=== PATIENT | female | born 1990 | race Caucasian/White ===

== ENCOUNTER 2019-10-29 02:54 | Emergency (ER) | payer MEDICARE, OTHER ==
[2019-10-29 03:04] VITALS: RESP 18
[2019-10-29] MEDS ORDERED: KETOROLAC 60 MG/2 ML VIAL IM STA (03:32)
[2019-10-29] MEDS ORDERED: MORPHINE SULFATE 4 MG/ML SYRINGE IM STA (03:32)
[2019-10-29 04:26] VITALS: BP 135/93; PULSE 72; TEMP 99.2
--- NOTE | 2019-10-29 04:48 | CT ---
CT scan of the mandible. History pain. Left side pain. Comparison none. FINDINGS: Multiple axial sections were obtained from the temporomandibular joints to the bottom of the mandible with no contrast. FINDINGS: Temporomandibular joints appear normal. Mandibular ring is intact. There are multiple bilateral hill ng teeth in the mandible. I see no focal bone destruction. There is no evidence of a soft tissue mass . The maxilla appears intact. The temporal bones are intact. There is fairly normal aeration of the m astoid sinuses. There is normal aeration of the epitympanic recess bilaterally. There are a few enlarged submandibular lymph nodes up to 13 mm on left side more than the right. There is mucosal thickening in the right side sphenoid sinus. IMPRESSION: No evidence of osteomyelitis. No evidence of an abscess. Sphenoid sinusitis. Mild bilateral submandibular lymphadenopathy with lymph nodes that measure up to 13 mm.
--- NOTE | 2019-10-29 05:15 | ED ---
ENT HPI - General Chief complaint: Dental/Oral Stated complaint: Mouth Pain Time Seen by Provider: 10/29/19 03:16 Source: patient Mode of arrival: ambulatory Limitations: no limitations - History of Present Illness Initial comments: This patient is 29-year-old woman who presents with complaint that she is not able to open her mandible well. She states that this is been developing over the course of tonight. She did recently have 2 teeth extracted from the left mandible area she states she was doing fairly well until today when she tried to open her mouth and felt there might have been a popping sensation and then she was not able to open her mouth very well. She called the on-call number and was directed to be seen in the emergency department. Patient denies fever or chills. There is no dyspnea. No difficulty with speech or swallowing. MD complaint: other -: hour(s) Location: other (Left mandible) Severity: severe Quality: aching, constant Consistency: constant Improves with: none Worsens with: eating Context-Epistaxis: recent surgery/procedure Context- Dental: history of dental caries - Related Data Home Medications Medication Instructions Recorded Confirmed carBAMazepine [TEGretol] 200 mg PO BID 04/02/14 04/02/14 Previous Rx's Medication Instructions Recorded Diazepam [Valium] 5 mg PO Q8HR PRN 3 Days #9 tab 10/29/19 Naproxen 500 mg PO Q12H #14 tablet 10/29/19 Allergies Allergy/AdvReac Type Severity Reaction Status Date / Time divalproex sodium Allergy Unknown Verified 10/29/19 03:05 [From Depakote] gabapentin Allergy Unknown Verified 10/29/19 03:05 lamotrigine [From Lamictal] Allergy Unknown Verified 10/29/19 03:05 latex Allergy Unknown Verified 10/29/19 03:05 lithium [[place]] Allergy Unknown Verified 10/29/19 03:05 clindamycin AdvReac Unknown Verified 10/29/19 03:05 Review of Systems ROS Statement: Those systems with pertinent positive or pertinent negative responses have been documented in the HPI. ROS Other: All systems not noted in ROS Statement are negative. Constitutional: Denies: fever, chills Eyes: Denies: eye pain, eye discharge, vision change ENT: Reports: as per HPI Respiratory: Denies: cough, dyspnea Cardiovascular: Denies: chest pain, palpitations Skin: Denies: rash Neurological: Denies: headache Past Medical History Past Medical History: Seizure Disorder Additional Past Medical History / Comment(s): sleep apnea, headaches History of Any Multi-Drug Resistant Organisms: None Reported Past Surgical History: Orthopedic Surgery Past Psychological History: Bipolar, Schizophrenia Smoking Status: Former smoker Past Alcohol Use History: None Reported Past Drug Use History: Marijuana General Exam Limitations: no limitations General appearance: alert, in no apparent distress Head exam: Present: atraumatic, normocephalic Eye exam: Present: normal appearance, EOMI. Absent: scleral icterus, conjunctival injection Neck exam: Present: normal inspection, full ROM. Absent: tenderness, meningismus Respiratory exam: Present: normal lung sounds bilaterally. Absent: respiratory distress, wheezes, rales, rhonchi, stridor Cardiovascular Exam: Present: regular rate, normal rhythm, normal heart sounds. Absent: systolic murmur, diastolic murmur, rubs, gallop Course Vital Signs 10/29/19 10/29/19 03:00 04:24 Temperature 98.2 F 99.2 F Pulse Rate 102 H 72 Respiratory 18 18 Rate Blood Pressure 135/87 135/93 O2 Sat by Pulse 97 99 Oximetry Medical Decision Making - Medical Decision Making patient's 29-year-old woman with left TMJ pain following dental extractions. There does appear to be at this point spasm with mastication muscles. CT does n ot at this point show abnormality of TMJ. Discussed appropriate further follow- up and return parameters, including possible need for MRI MJ if symptoms are not resolving. We will give course of Valium as muscle relaxant Disposition Clinical Impression: Trismus Disposition: HOME SELF-CARE Condition: Good Instructions (If sedation given, give patient instructions): Muscle Spasm (ED) Prescriptions: Naproxen 500 mg PO Q12H #14 tablet Diazepam [Valium] 5 mg PO Q8HR PRN 3 Days #9 tab PRN Reason: Spasms Is patient prescribed a controlled substance at d/c from ED?: No Referrals: Elissa Perkins MD [Primary Care Provider] - 1-2 days
== END 2019-10-29 05:35 | disposition home or self-care (01) ==
LOC: EC 02:54
DX: R25.2 Cramp and spasm (principal); G40.909 Epilepsy, unspecified, not intractable, without status epilepticus; F31.9 Bipolar disorder, unspecified; Z87.891 Personal history of nicotine dependence; Z88.1 Allergy status to other antibiotic agents; Z88.8 Allergy status to other drugs, medicaments and biological substances; Z91.040 Latex allergy status; Z79.899 Other long term (current) drug therapy; Z87.898 Personal history of other specified conditions; Z98.818 Other dental procedure status
CPT/HCPCS: 70486; 99283; 96372 ×2; J2270; J1885

== ENCOUNTER 2019-11-04 21:48 | Emergency (ER) | payer OTHER ==
[2019-11-04 21:55] VITALS: BP 153/108; PULSE 86; RESP 20; TEMP 99.2
[2019-11-04] MEDS ORDERED: Acetaminophen-Codeine 300-30mg TAB PO STA (22:11)
[2019-11-04] MEDS ORDERED: ACET/COD 300 MG/30 MG STARTER PACK 6 TAB BTL PO STA (22:11)
[2019-11-04] MEDS ORDERED: DEXAMETHASONE ORAL 4 MG/ML VIAL PO ONE (23:05)
[2019-11-04] MEDS ORDERED: SULFAMETH-TMP DS STARTER PACK 2 TAB BTL PO STA (23:14)
--- NOTE | 2019-11-04 23:14 | ED ---
General Adult HPI - General Chief complaint: Dental/Oral Stated complaint: Jaw pain Time Seen by Provider: 11/04/19 21:56 Source: patient, RN notes reviewed, old records reviewed Mode of arrival: ambulatory Limitations: no limitations - History of Present Illness Initial comments: 29-year-old female patient presents ED chief complaint of jaw pain. Patient reports that in late September she had some teeth removed. Reports that she has had pain since. Reports has been worse the last week. Patient was in this emergency department 10/28 she was evaluated with a CAT scan which displayed some lymphadenopathy. Patient denies any other complaints. Was previously taking clindamycin. Because she felt as if it is affecting her mood. Does not able to follow up with a dentist recently because they're closed due to the coronavirus. Systemic: Pt denies fatigue, fever/chills, rash. Pt denies weakness, night sweats, weight loss. Neuro: Pt denies headache, visual disturbances, syncope or pre-syncope. HEENT: Pt denies ocular discharge or irritation, otalgia, rhinorrhea, pharyngitis or notable lymphadenopathy. Cardiopulmonary: Pt denies chest pain, SOB, heart palpitations, dyspnea on exertion. Abdominal/GI: Pt denies abdominal pain, n/v/d. : Pt denies dysuria, burning w/ urination, frequency/urgency. Denies new onset urinary or bowel incontinence. MSK: Pt denies myalgia, loss of strength or function in extremities. Neuro: Pt denies new onset weakness, paresthesias. - Related Data Home Medications Medication Instructions Recorded Confirmed carBAMazepine [TEGretol] 200 mg PO BID 04/02/14 04/02/14 Previous Rx's Medication Instructions Recorded Diazepam [Valium] 5 mg PO Q8HR PRN 3 Days #9 tab 10/29/19 Naproxen 500 mg PO Q12H #14 tablet 10/29/19 Sulfamethox-Tmp 800-160Mg [Bactrim 1 tab PO Q12HR #20 tab 11/04/19 DS 800-160 mg] Allergies Allergy/AdvReac Type Severity Reaction Status Date / Time divalproex sodium Allergy Unknown Verified 11/04/19 21:55 [From Depakote] gabapentin Allergy Unknown Verified 11/04/19 21:55 lamotrigine [From Lamictal] Allergy Unknown Verified 11/04/19 21:55 latex Allergy Unknown Verified 11/04/19 21:55 lithium [[place]] Allergy Unknown Verified 11/04/19 21:55 clindamycin AdvReac Unknown Verified 11/04/19 21:55 Review of Systems ROS Statement: Those systems with pertinent positive or pertinent negative responses have been documented in the HPI. ROS Other: All systems not noted in ROS Statement are negative. Past Medical History Past Medical History: Seizure Disorder Additional Past Medical History / Comment(s): sleep apnea, headaches History of Any Multi-Drug Resistant Organisms: None Reported Past Surgical History: Orthopedic Surgery Past Psychological History: Bipolar, Schizophrenia Smoking Status: Former smoker Past Alcohol Use History: None Reported Past Drug Use History: Marijuana General Exam - General Exam Comments Initial Comments: Constitutional: NAD, AOX3, Pt has pleasant affect. HEENT: NC/AT, trachea midline, neck supple, no lymphadenopathy. Posterior ph arynx non erythematous, without exudates. External ears appear normal, without discharge. Mucous membranes moist. Eyes PERRLA, EOM intact. There is no scleral icterus. No pallor noted. Dental exam did reveal poor dentition. Left lower molar region display some mild gum erythema, mild tenderness to palpation. No drainable abscesses noted. Cardiopulmonary: RRR, no murmurs, rubs or gallops, no JVD noted. Lungs CTAB in anterior and posterior worley. No peripheral edema. Neuro: CN II-XII grossly intact. No nuchal rigidity. No raccon eyes, no buckley sign, no hemotympanum. No cervical spinal tenderness. MSK: Full active ROM in upper and lower extremities, 5/5 stregnth. Limitations: no limitations Course Vital Signs 11/04/19 21:51 Temperature 99.2 F Pulse Rate 86 Respiratory 20 Rate Blood Pressure 153/108 O2 Sat by Pulse 99 Oximetry Medical Decision Making - Medical Decision Making 29-year-old female patient presents ED chief complaint of jaw pain. Patient reports that in late September she had some teeth removed. Reports that she has had pain since. Reports has been worse the last week. Patient was in this emergency department 4/5 she was evaluated with a CAT scan which displayed some lymphadenopathy. Patient denies any other complaints. Was previously taking clindamycin. Because she felt as if it is affecting her mood. Does not able to follow up with a dentist recently because they're closed due to the coronavirus. Patient will signs are stable, afebrile. Physical exam displayed: Dental exam did reveal poor dentition. Left lower molar region display some mild gum erythema, mild tenderness to palpation. No drainable abscesses noted. Mild amount of swelling noted to left face. Patient reports that she has a ALLERGY and does not want to take clindamycin. Patient be placed on Bactrim. Given 1 dose of Decadron. We'll discharge the patient primary care as well as dental follow-up. Patient does report that there is a dentist office in [place] that she go to that she has been in contact with. Return to ER if condition worsens. Case discussed with Dr. Fuentes. Disposition Clinical Impression: Pain, dental Disposition: HOME SELF-CARE Condition: Stable Instructions (If sedation given, give patient instructions): Toothache (ED) Additional Instructions: Take antibiotics as directed. Follow-up with primary care provider and dentist tomorrow. Return to ER if condition worsens in any way. Prescriptions: Sulfamethox-Tmp 800-160Mg [Bactrim DS 800-160 mg] 1 tab PO Q12HR #20 tab Is patient prescribed a controlled substance at d/c from ED?: No Referrals: Elissa Perkins MD [Primary Care Provider] - 1-2 days Kimberly Olguin DDS [STAFF PHYSICIAN] - 1-2 days Jose Smas DDS [STAFF PHYSICIAN] - 1-2 days Denise Rangel DDS [STAFF PHYSICIAN] - 1-2 days
== END 2019-11-04 23:22 | disposition home or self-care (01) ==
LOC: EC 21:48
DX: K08.89 Other specified disorders of teeth and supporting structures (principal); R59.1 Generalized enlarged lymph nodes; R68.84 Jaw pain; G40.909 Epilepsy, unspecified, not intractable, without status epilepticus; Z87.891 Personal history of nicotine dependence; Z79.899 Other long term (current) drug therapy; Z88.8 Allergy status to other drugs, medicaments and biological substances; Z91.040 Latex allergy status; Z88.1 Allergy status to other antibiotic agents
CPT/HCPCS: 99283; J8540

== ENCOUNTER 2019-11-06 08:41 | Emergency (ER) | payer OTHER ==
[2019-11-06 08:46] VITALS: TEMP 99.1
[2019-11-06] MEDS ORDERED: DEXAMETHASONE SOD PHOSPHATE 10 MG/ML 1 ML VIAL IV STA (08:46)
[2019-11-06] MEDS ORDERED: RX INFO: IV CONTRAST WAS GIVEN 1 EACH MISC MISCELLANE PRN (08:46)
[2019-11-06] MEDS ORDERED: AMPICILLIN-SULBACTAM 3 GM in SODIUM CHLORIDE 0.9% 100 ML IVPB STA (08:46)
--- NOTE | 2019-11-06 09:03 | ED ---
ENT HPI <Arvin Herrera - Last Filed: 11/06/19 11:28> - General Source: EMS, RN notes reviewed, old records reviewed Mode of arrival: EMS Limitations: no limitations <Arabella Inman - Last Filed: 11/06/19 11:56> - General Chief complaint: Dental/Oral Stated complaint: Tooth infection/facial swelling. Time Seen by Provider: 11/06/19 08:49 - History of Present Illness Initial comments: Patient is a 29-year-old female who presents emergency department today for evaluation for significant soft tissue swelling over her neck and lower jaw. Patient was seen in the emergency department 2 days ago and started on Bactrim for dental infection. She's been taking these antibiotic for the past 2 days. states that on October 18 she had his #17 and 18 removed at [facility]. She states that over the past 12 hours she noticed worsening significant swelling extending into her neck. She does report difficult time swallowing and is noticing some difficulty with breathing. Patient states that she is not a diabetic. She does have a seizure history. (Arabella Inman) - Related Data Home Medications Medication Instructions Recorded Confirmed Ipratropium/Albuter 20-100Mcg 1 puff INHALATION RT-QID 11/06/19 11/06/19 [Combivent Respimat 20-100Mcg Inhaler] Loratadine 10 mg PO DAILY 11/06/19 11/06/19 Meclizine [Antivert] 25 mg PO TID PRN 11/06/19 11/06/19 Montelukast [Singulair] 10 mg PO HS 11/06/19 11/06/19 Naproxen 500 mg PO Q12H PRN 11/06/19 11/06/19 Norgestimate-Ethinyl Estradiol 1 tab PO DAILY 11/06/19 11/06/19 [Tri-Sprintec Tablet] Topiramate [Topamax] 50 mg PO HS 11/06/19 11/06/19 levETIRAcetam [Keppra] 500 mg PO BID 11/06/19 11/06/19 oxyCODONE-APAP 10-325MG [Percocet 1 tab PO TID PRN 11/06/19 11/06/19 10-325 mg] tiZANidine [Zanaflex] 4 mg PO DAILY PRN 11/06/19 11/06/19 Previous Rx's Medication Instructions Recorded Sulfamethox-Tmp 800-160Mg [Bactrim 1 tab PO Q12HR #20 tab 11/04/19 DS 800-160 mg] Allergies Allergy/AdvReac Type Severity Reaction Status Date / Time divalproex sodium Allergy Unknown Verified 11/04/19 21:55 [From Depakote] gabapentin Allergy Unknown Verified 11/04/19 21:55 lamotrigine [From Lamictal] Allergy Unknown Verified 11/04/19 21:55 latex Allergy Unknown Verified 11/04/19 21:55 lithium [[place]] Allergy Unknown Verified 11/04/19 21:55 clindamycin AdvReac Unknown Verified 11/04/19 21:55 Review of Systems ROS Other: All systems not noted in ROS Statement are negative. <Arvin Herrera - Last Filed: 11/06/19 11:28> ROS Other: All systems not noted in ROS Statement are negative. <Arabella Inman - Last Filed: 11/06/19 11:56> ROS Statement: Those systems with pertinent positive or pertinent negative responses have been documented in the HPI. Past Medical History Past Medical History: Seizure Disorder Additional Past Medical History / Comment(s): sleep apnea, headaches History of Any Multi-Drug Resistant Organisms: None Reported Past Surgical History: Orthopedic Surgery Past Psychological History: Bipolar, Schizophrenia Smoking Status: Former smoker Past Alcohol Use History: None Reported Past Drug Use History: Marijuana <Arabella Inman - Last Filed: 11/06/19 11:56> General Exam Limitations: no limitations General appearance: alert, in no apparent distress Head exam: Present: atraumatic, normocephalic, normal inspection Eye exam: Present: normal appearance, PERRL, EOMI. Absent: scleral icterus, conjunctival injection, periorbital swelling ENT exam: Present: normal exam, mucous membranes moist. Absent: normal oropharynx (Patient has trismus, unable to visualize posterior oropharynx.), TM's normal bilaterally Neck exam: Present: tenderness (swelling over left mandible and submental region, erythema noted. Moderate trismus. ), full ROM. Absent: normal inspection, meningismus, lymphadenopathy Respiratory exam: Present: normal lung sounds bilaterally. Absent: respiratory distress, wheezes, rales, rhonchi, stridor Cardiovascular Exam: Present: regular rate, normal rhythm, normal heart sounds. Absent: systolic murmur, diastolic murmur, rubs, gallop, clicks GI/Abdominal exam: Present: soft, normal bowel sounds. Absent: distended, tenderness, guarding, rebound, rigid Extremities exam: Present: normal inspection, full ROM, normal capillary refill. Absent: tenderness, pedal edema, joint swelling, calf tenderness Back exam: Present: normal inspection Neurological exam: Present: alert, oriented X3, CN II-XII intact Psychiatric exam: Present: normal affect, normal mood Skin exam: Present: warm, dry, intact, normal color. Absent: rash <Arabella Inman - Last Filed: 11/06/19 11:56> - General Exam Comments Initial Comments: 29-year-old female. Patient is alert and oriented answering questions. She is tearful and anxious. (Arabella Inman) Course <Arabella Inman - Last Filed: 11/06/19 11:56> Vital Signs 11/06/19 11/06/19 11/06/19 08:43 08:53 09:09 Temperature 99.1 F Pulse Rate 98 99 Respiratory 16 16 16 Rate Blood Pressure 115/83 141/78 O2 Sat by Pulse 99 100 Oximetry 11/06/19 11/06/19 11/06/19 09:45 10:25 10:40 Temperature Pulse Rate 96 86 115 H Respiratory 16 16 35 H Rate Blood Pressure 132/76 95/86 148/86 O2 Sat by Pulse 100 100 100 Oximetry 11/06/19 11/06/19 11/06/19 10:52 11:01 11:06 Temperature Pulse Rate 84 92 110 H Respiratory 16 19 16 Rate Blood Pressure 146/78 140/80 132/71 O2 Sat by Pulse 100 99 99 Oximetry 11/06/19 11/06/19 11:23 11:45 Temperature Pulse Rate 73 83 Respiratory 23 21 Rate Blood Pressure 136/82 116/72 O2 Sat by Pulse 100 99 Oximetry - Reevaluation(s) Reevaluation #1: 11/06/19 09:12 Patient was evaluated by [employer], and is currently receiving Depo lidocaine treatment and received a CC of Robinul. They plan to do an awake airway in the OR. 11/06/19 09:13 Awaiting to talk to patient about plan. (Arabella Inman) Reevaluation #2: 11/06/19 10:08 Patient take to OR at 9:45 for airway management (Ana Laura Inmanily) Reevaluation #3: 11/06/19 10:25 Patient returned from OR after awake airway insertion. This was successful without complication. Patient had 7-0 tube placed. Patient is going to CT with respiratory therapist at this time. (Arabella Inman) Medical Decision Making - Lab Data Result diagrams: 11/06/19 08:58 11/06/19 08:58 <Arvin Herrera - Last Filed: 11/06/19 11:28> - Lab Data Result diagrams: 11/06/19 08:58 11/06/19 08:58 - Radiology Data Radiology results: report reviewed <Arabella Inman - Last Filed: 11/06/19 11:56> - Medical Decision Making PA attestation: I, Dr. Arvin Herrera, personally saw and examined the patient. I have reviewed and agree with the resident/PA findings, including all diagnostic interpretations and treatment plans as written unless otherwise stated. I was present for the wall portions of any procedures performed and inclusive time noted for any critical care statement. Anesthesia was consulted. Patient was transferred to operating room for fiberoptic intubation. Case was discussed with ENT physician Dr. Hagen reports that this is outside as a warehouse. He recommended to contact oral surgery. Discussed patient case with Dr. Lopez of oral surgery who feels the patient is not an appropriate candidate for our facility. He recommends the patient be transferred to tertiary care facility if possible despite the o [facility] coronavirus pandemic. (Arvin Herrera) 29-year-old female presents emergency department for the third time with complaints of left jaw and facial swelling. Patient had to 17 and 18 [facility]. She's been on clindamycin as well as Bactrim. She was switched to Bactrim 2 days ago. She presents today with significant submental swelling and trismus. She doesn't states she is unable to swallow well and complains of difficulty breathing. Patient consented and a airway was placed by anesthesia STEVENSON with concern for Raymond Angina. Patient was there before sedation. Patient lab work shows white blood cell count 12.8. Lactic acid was normal. Does have an elevated CRP of 82.5. Patient started on IV Decadron 10mg and 3 g Unasyn. Computed tomography scan of the soft tissue neck and chest is reviewed.There is evidence of multifocal abscess adjacent to the left hemimandible and osteomyelitis. There is cellulitis extending to the undersurface of the left masseter muscle. Patient's case was discussed with Dr. Lopez recommends the Patient be transferred to a higher level care facility. He discussed with Dr. [facility]y at [facility] whom can accept the patient. I discussed the case with the ER physician Dr. Ross who agrees to accept transfer. (Arabella Inman) - Lab Data Lab Results 11/06/19 11/06/19 11/06/19 Range/Units 08:58 08:58 08:58 WBC 12.8 H (3.8-10.6) k/uL RBC 4.45 (3.80-5.40) m/uL Hgb 12.2 (11.4-16.0) gm/dL Hct 37.8 (34.0-46.0) % MCV 85.0 (80.0-100.0) fL MCH 27.5 (25.0-35.0) pg MCHC 32.4 (31.0-37.0) g/dL RDW 13.6 (11.5-15.5) % Plt Count 383 (150-450) k/uL Neutrophils % 79 % Lymphocytes % 13 % Monocytes % 6 % Eosinophils % 0 % Basophils % 0 % Neutrophils # 10.1 H (1.3-7.7) k/uL Lymphocytes # 1.6 (1.0-4.8) k/uL Monocytes # 0.8 (0-1.0) k/uL Eosinophils # 0.1 (0-0.7) k/uL Basophils # 0.0 (0-0.2) k/uL PT (9.0-12.0) sec INR (<1.2) APTT (22.0-30.0) sec Sodium 139 (137-145) mmol/L Potassium 3.4 L (3.5-5.1) mmol/L Chloride 104 (98-107) mmol/L Carbon Dioxide 26 (22-30) mmol/L Anion Gap 9 mmol/L BUN 12 (7-17) mg/dL Creatinine 0.95 (0.52-1.04) mg/dL Est GFR (CKD-EPI)AfAm >90 (>60 ml/min/1.73 sqM) Est GFR (CKD-EPI)NonAf 81 (>60 ml/min/1.73 sqM) Glucose 109 H (74-99) mg/dL Plasma Lactic Acid Parveen 1.3 (0.7-2.0) mmol/L Calcium 9.1 (8.4-10.2) mg/dL Total Bilirubin 0.4 (0.2-1.3) mg/dL AST 30 (14-36) U/L ALT 44 H (4-34) U/L Alkaline Phosphatase 84 (38-126) U/L C-Reactive Protein 82.5 H (<10.0) mg/L Total Protein 6.6 (6.3-8.2) g/dL Albumin 3.5 (3.5-5.0) g/dL 11/06/19 Range/Units 08:58 WBC (3.8-10.6) k/uL RBC (3.80-5.40) m/uL Hgb (11.4-16.0) gm/dL Hct (34.0-46.0) % MCV (80.0-100.0) fL MCH (25.0-35.0) pg MCHC (31.0-37.0) g/dL RDW (11.5-15.5) % Plt Count (150-450) k/uL Neutrophils % % Lymphocytes % % Monocytes % % Eosinophils % % Basophils % % Neutrophils # (1.3-7.7) k/uL Lymphocytes # (1.0-4.8) k/uL Monocytes # (0-1.0) k/uL Eosinophils # (0-0.7) k/uL Basophils # (0-0.2) k/uL PT 9.7 (9.0-12.0) sec INR 0.9 (<1.2) APTT 24.7 (22.0-30.0) sec Sodium (137-145) mmol/L Potassium (3.5-5.1) mmol/L Chloride (98-107) mmol/L Carbon Dioxide (22-30) mmol/L Anion Gap mmol/L BUN (7-17) mg/dL Creatinine (0.52-1.04) mg/dL Est GFR (CKD-EPI)AfAm (>60 ml/min/1.73 sqM) Est GFR (CKD-EPI)NonAf (>60 ml/min/1.73 sqM) Glucose (74-99) mg/dL Plasma Lactic Acid Parveen (0.7-2.0) mmol/L Calcium (8.4-10.2) mg/dL Total Bilirubin (0.2-1.3) mg/dL AST (14-36) U/L ALT (4-34) U/L Alkaline Phosphatase (38-126) U/L C-Reactive Protein (<10.0) mg/L Total Protein (6.3-8.2) g/dL Albumin (3.5-5.0) g/dL - Radiology Data Multifocal abscess adjacent to the oral side of the left hemimandible and adjacent osteomyelitis. Abscess and cellulitis extends to the left oropharynx along the undersurface of the left masseter muscle. There is extensive cellulitis noted and reactive adenopathy. ET tube is in place. (Arabella Inman) Disposition <Arvin Herrera - Last Filed: 11/06/19 11:28> Is patient prescribed a controlled substance at d/c from ED?: No Time of Disposition: 11:55 - Out of Hospital Transfer - Req. Specs Out of Hospital Transfer - Requested Specifics: Other Emergency Center ([facility]) <Arabella Inman - Last Filed: 11/06/19 11:56> Clinical Impression: Raymond's angina syndrome, Dental infection, Osteomyelitis, jaw acute Disposition: DC/TRNS INTERMEDIATE CARE FAC Condition: Stable Referrals: Elissa Perkins MD [Primary Care Provider] - 1-2 days
[2019-11-06 09:11] LABS: Basophils % (A) 0 %; Eosinophils # (A) 0.1 k/uL (0-0.7); Eosinophils % (A) 0 %; HCT 37.8 % (34.0-46.0); HGB 12.2 gm/dL (11.4-16.0); Lymphocytes # (A) 1.6 k/uL (1.0-4.8); Lymphocytes % (A) 13 %; MCH 27.5 pg (25.0-35.0); MCHC 32.4 g/dL (31.0-37.0); Mean Platelet Volume 7.8; Monocytes # (A) 0.8 k/uL (0-1.0); Monocytes % (A) 6 %; Neutrophils # (A) 10.1 k/uL (1.3-7.7); Neutrophils % (A) 79 %; Platelet Count 383 k/uL (150-450); RBC 4.45 m/uL (3.80-5.40); RDW 13.6 % (11.5-15.5); WBC 12.8 k/uL (3.8-10.6)
[2019-11-06] MEDS ORDERED: SODIUM CHLORIDE 0.9% 1,000 ML IV STA (09:16)
[2019-11-06 09:21] LABS: INR 0.9 (<1.2); Partial Thromboplastin Time 24.7 sec (22.0-30.0); Prothrombin Time 9.7 sec (9.0-12.0)
[2019-11-06 09:26] LABS: ALT 44 U/L (4-34); AST 30 U/L (14-36); African American GFR (CKD) >90 (>60 ml/min/1.73 sqM); Albumin 3.5 g/dL (3.5-5.0); Alkaline Phosphatase 84 U/L (38-126); Anion Gap 9 mmol/L; Blood Urea Nitrogen 12 mg/dL (7-17); C Reactive Protein 82.5 mg/L (<10.0); Calcium 9.1 mg/dL (8.4-10.2); Carbon Dioxide 26 mmol/L (22-30); Chloride 104 mmol/L (98-107); Glucose 109 mg/dL (74-99); Non-African American GFR(CKD) 81 (>60 ml/min/1.73 sqM); Potassium 3.4 mmol/L (3.5-5.1); Sodium 139 mmol/L (137-145); Total Bilirubin 0.4 mg/dL (0.2-1.3); Total Protein 6.6 g/dL (6.3-8.2)
[2019-11-06] MEDS ORDERED: MIDAZOLAM 2 MG/2 ML VIAL ONE (09:45)
[2019-11-06] MEDS ORDERED: PROPOFOL 10 MG/ML 20 ML VIAL IV ONE ×2 (09:45→11:33)
[2019-11-06] MEDS ORDERED: KETOROLAC 30 MG/ML 1 ML VIAL IVP STA (09:52)
[2019-11-06] MEDS ORDERED: PROPOFOL 1,000 MG in EMPTY BAG 1 BAG IV ONE (10:09)
--- NOTE | 2019-11-06 10:27 | P.GSCN ---
History of Present Illness Consult date: 11/06/19 Reason for Consult: Difficult airway History of present illness: 29-year-old female presents with complaints of left neck and lower jaw swelling. Patient on antibiotics after being seen 2 days ago for mild swelling in the left jawline. Patient had tooth removal recently. Today presents with complaints of increased swelling and difficulty swallowing as well as some challenges with breathing. She has difficulty opening her mouth at this time. I was consulted to remain on surgical standby in the event that emergency airway was necessary. Review of Systems The patient denies any acute changes in vision or hearing, no dysuria or hematuria, no headache, no runny nose, no rectal bleeding or melena, no unexpl ained weight loss Past Medical History Past Medical History: Seizure Disorder Additional Past Medical History / Comment(s): sleep apnea, headaches History of Any Multi-Drug Resistant Organisms: None Reported Past Surgical History: Orthopedic Surgery Past Psychological History: Bipolar, Schizophrenia Smoking Status: Former smoker Past Alcohol Use History: None Reported Past Drug Use History: Marijuana Medications and Allergies Home Medications Medication Instructions Recorded Confirmed Type Sulfamethox-Tmp 800-160Mg [Bactrim 1 tab PO Q12HR #20 tab 11/04/19 11/06/19 Rx DS 800-160 mg] Ipratropium/Albuter 20-100Mcg 1 puff INHALATION RT-QID 11/06/19 11/06/19 History [Combivent Respimat 20-100Mcg Inhaler] Loratadine 10 mg PO DAILY 11/06/19 11/06/19 History Meclizine [Antivert] 25 mg PO TID PRN 11/06/19 11/06/19 History Montelukast [Singulair] 10 mg PO HS 11/06/19 11/06/19 History Naproxen 500 mg PO Q12H PRN 11/06/19 11/06/19 History Norgestimate-Ethinyl Estradiol 1 tab PO DAILY 11/06/19 11/06/19 History [Tri-Sprintec Tablet] Topiramate [Topamax] 50 mg PO HS 11/06/19 11/06/19 History levETIRAcetam [Keppra] 500 mg PO BID 11/06/19 11/06/19 History oxyCODONE-APAP 10-325MG [Percocet 1 tab PO TID PRN 11/06/19 11/06/19 History 10-325 mg] tiZANidine [Zanaflex] 4 mg PO DAILY PRN 11/06/19 11/06/19 History Allergies Allergy/AdvReac Type Severity Reaction Status Date / Time divalproex sodium Allergy Unknown Verified 11/04/19 21:55 [From Depakote] gabapentin Allergy Unknown Verified 11/04/19 21:55 lamotrigine [From Lamictal] Allergy Unknown Verified 11/04/19 21:55 latex Allergy Unknown Verified 11/04/19 21:55 lithium [[place]] Allergy Unknown Verified 11/04/19 21:55 clindamycin AdvReac Unknown Verified 11/04/19 21:55 Surgical - Exam Vital Signs Temp Pulse Resp BP Pulse Ox 99.1 F 98 16 115/83 99 11/06/19 08:43 11/06/19 08:43 11/06/19 08:43 11/06/19 08:43 11/06/19 08:43 Physical exam: General: Well-developed, well-nourished HEENT: Normocephalic, sclerae nonicteric, marked swelling left lateral neck and mandibular region, some erythema, tenderness noted, unable to open the mouth beyond 1-1.5 cm Abdomen: Nontender, nondistended Extremities: No edema Neuro: Alert and oriented Results - Labs 11/06/19 08:58 11/06/19 08:58 Abnormal Lab Results - Last 24 Hours (Table) 11/06/19 11/06/19 Range/Units 08:58 08:58 WBC 12.8 H (3.8-10.6) k/uL Neutrophils # 10.1 H (1.3-7.7) k/uL Potassium 3.4 L (3.5-5.1) mmol/L Glucose 109 H (74-99) mg/dL ALT 44 H (4-34) U/L C-Reactive Protein 82.5 H (<10.0) mg/L Diabetes panel 11/06/19 Range/Units 08:58 Sodium 139 (137-145) mmol/L Potassium 3.4 L (3.5-5.1) mmol/L Chloride 104 (98-107) mmol/L Carbon Dioxide 26 (22-30) mmol/L BUN 12 (7-17) mg/dL Creatinine 0.95 (0.52-1.04) mg/dL Glucose 109 H (74-99) mg/dL Calcium 9.1 (8.4-10.2) mg/dL AST 30 (14-36) U/L ALT 44 H (4-34) U/L Alkaline Phosphatase 84 (38-126) U/L Total Protein 6.6 (6.3-8.2) g/dL Albumin 3.5 (3.5-5.0) g/dL Calcium panel 11/06/19 Range/Units 08:58 Calcium 9.1 (8.4-10.2) mg/dL Albumin 3.5 (3.5-5.0) g/dL Pituitary panel 11/06/19 Range/Units 08:58 Sodium 139 (137-145) mmol/L Potassium 3.4 L (3.5-5.1) mmol/L Chloride 104 (98-107) mmol/L Carbon Dioxide 26 (22-30) mmol/L BUN 12 (7-17) mg/dL Creatinine 0.95 (0.52-1.04) mg/dL Glucose 109 H (74-99) mg/dL Calcium 9.1 (8.4-10.2) mg/dL Adrenal panel 11/06/19 Range/Units 08:58 Sodium 139 (137-145) mmol/L Potassium 3.4 L (3.5-5.1) mmol/L Chloride 104 (98-107) mmol/L Carbon Dioxide 26 (22-30) mmol/L BUN 12 (7-17) mg/dL Creatinine 0.95 (0.52-1.04) mg/dL Glucose 109 H (74-99) mg/dL Calcium 9.1 (8.4-10.2) mg/dL Total Bilirubin 0.4 (0.2-1.3) mg/dL AST 30 (14-36) U/L ALT 44 H (4-34) U/L Alkaline Phosphatase 84 (38-126) U/L Total Protein 6.6 (6.3-8.2) g/dL Albumin 3.5 (3.5-5.0) g/dL Assessment and Plan (1) Difficult airway Narrative/Plan: I was available for standby emergency cricothyroidotomy if necessary. The patient I discussed the potential need for emergency surgical airway. Risks briefly reviewed. Thankfully in the operating room the patient was able to be intubated using awake fiberoptic intubation technique by anesthesia. Defer management of infection to OMFS. Current Visit: Yes Status: Acute Code(s): T88.4XXA - FAILED OR DIFFICULT INTUBATION, INITIAL ENCOUNTER SNOMED Code(s): 511140647
--- NOTE | 2019-11-06 11:06 | CT ---
EXAMINATION TYPE: CT neck chest w con DATE OF EXAM: 11/06/2019 COMPARISON: None HISTORY: Post dental procedure on 11/14/2019. Left sided facial swelling with difficulty swallowing an d breathing CT DLP: 1649.8 mGycm CONTRAST: CT scan of the neck is performed with IV Contrast, patient injected with 100 mL of Isovue 300. Contrast enhanced CT of the neck was performed from the skull base through the lung apices. There is multifocal abscess noted adjacent to the oral side of the mandible on the left measuring 2.8 x 2.7 cm. There is adjacent bone destruction noted to involve the left hemimandible compatible with osteomyelitis. There Appears to have been recent tooth extraction in this region. There is also a sma ller adjacent abscess component noted at the left mandibular ramus measuring 1.2 cm with extension al tia the undersurface of the left masseter muscle. The left masseter muscle is significantly edematous . Cellulitis noted along the left facial subcutaneous tissues.There is cellulitis at the floor of the mouth at the base of the tongue on the left with mass effect upon the oropharynx. Extension of absce ss difficult to exclude. There is evidence of endotracheal tube. Inflammatory change extends into the left strap muscles. Reactive adenopathy in the left internal jug ular chain measuring up to 1.2 cm. There is also mild edema of the left sternocleidomastoid musculatu re. IMPRESSION: 1 multifocal abscess adjacent to the oral side of the left hemimandible with adjacent osteomyelitis. Abscess and cellulitis extends to the left oropharynx and along the undersurface of the left masseter musculature. There is extensive cellulitis noted with reactive adenopathy. Endotracheal tube is in p lace. See above. EXAMINATION TYPE: CT neck chest w con DATE OF EXAM: 11/06/2019 COMPARISON: None HISTORY: Post dental procedure on 11/14/2019. Left sided facial swelling with difficulty swallowing an d breathing CT DLP: 1649.8 mGycm Automated exposure control for dose reduction was used. CONTRAST: CT scan of the chest is performed with IV Contrast, patient injected with 100 mL of Isovue 300. FINDINGS: LUNGS: Basilar and midlung zone scattered infiltrates and/or atelectasis. Tiny effusions noted. MEDIASTINUM: There are no greater than 1 cm hilar or mediastinal lymph nodes. No pericardial effusi on is seen. Thoracic aorta is of normal caliber. The heart is not enlarged. UPPER ABDOMEN: No significant abnormality appreciated. OTHER: No additional significant abnormality is seen. IMPRESSION: Basilar and midlung zone scattered infiltrates and/or atelectasis. Tiny effusions noted.
[2019-11-06] MEDS ORDERED: LORazepam 2 MG/ML INJ IV STA (11:11)
[2019-11-06 12:05] LABS: ABG Base Excess -2.7 mmol/L; ABG HCO3 23 mmol/L (21-25); ABG Oxygen Saturation 81.6 % (94-97); ABG PCO2 40 mmHg (35-45); ABG PH 7.37 (7.35-7.45); ABG TCO2 24 mmol/L (19-24); Allen Test Performed? Yes
[2019-11-06 12:13] LABS: ABG PO2 49 mmHg (83-108)
--- NOTE | 2019-11-06 12:45 | XR ---
EXAMINATION TYPE: XR KUB portable DATE OF EXAM: 11/06/2019 COMPARISON: None INDICATION: NG tube placement TECHNIQUE: Single view abdomen supine view FINDINGS: r nonspecific bowel gas pattern is present with air within small bowel loops as well as colon. Small bowel appears dilated in the left midabdomen with a diameter of 3.9 cm. Psoas margins are normal. No organomegaly is present. NG tube in place with the tip in the left upper quadrant of the abdomen. Faint intravenous CABG contr ast is evident within the renal collecting systems. IMPRESSION: 1. NG tube tip in the left upper quadrant abdomen. 2. Prominent air-filled small bowel loop left midabdomen
[2019-11-06 12:54] VITALS: BP 123/78; PULSE 78; RESP 16
== END 2019-11-06 12:40 ==
LOC: EC 08:41
DX: K12.2 Cellulitis and abscess of mouth (principal); K04.7 Periapical abscess without sinus; M27.2 Inflammatory conditions of jaws; R79.82 Elevated C-reactive protein (CRP); R06.02 Shortness of breath; K08.409 Partial loss of teeth, unspecified cause, unspecified class; G40.909 Epilepsy, unspecified, not intractable, without status epilepticus; Z87.891 Personal history of nicotine dependence; Z79.3 Long term (current) use of hormonal contraceptives; Z79.899 Other long term (current) drug therapy; Z88.8 Allergy status to other drugs, medicaments and biological substances; Z91.040 Latex allergy status; Z88.1 Allergy status to other antibiotic agents
CPT/HCPCS: 99291; 96365; 96366; 96374; 96375 ×2; 96361 ×2; 36415; 36600; 80053; 82805; 83605; 85025; 85610; 85730; 86140; 87040; 74018; 70491; 71260; J2250; J2060; J1100; J1885; J0295; J2704 ×2; Q9967; 94002

== ENCOUNTER 2020-03-04 19:57 | Emergency (ER) | payer OTHER ==
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
[2020-03-04 20:36] LABS: Basophils % (A) 1 %; Eosinophils # (A) 0.4 k/uL (0-0.7); Eosinophils % (A) 6 %; HCT 37.5 % (34.0-46.0); Lymphocytes # (A) 1.6 k/uL (1.0-4.8); Lymphocytes % (A) 23 %; MCH 27.6 pg (25.0-35.0); MCHC 32.1 g/dL (31.0-37.0); Mean Platelet Volume 7.6; Monocytes # (A) 0.4 k/uL (0-1.0); Monocytes % (A) 6 %; Neutrophils # (A) 4.5 k/uL (1.3-7.7); Neutrophils % (A) 63 %; Platelet Count 314 k/uL (150-450); RBC 4.36 m/uL (3.80-5.40); RDW 13.8 % (11.5-15.5); WBC 7.2 k/uL (3.8-10.6)
[2020-03-04 20:52] LABS: ALT 23 U/L (4-34); AST 29 U/L (14-36); African American GFR (CKD) >90 (>60 ml/min/1.73 sqM); Albumin 3.7 g/dL (3.5-5.0); Alkaline Phosphatase 69 U/L (38-126); Anion Gap 8 mmol/L; Blood Urea Nitrogen 14 mg/dL (7-17); C Reactive Protein 19.9 mg/L (<10.0); Calcium 9.3 mg/dL (8.4-10.2); Carbon Dioxide 23 mmol/L (22-30); Chloride 108 mmol/L (98-107); Glucose 110 mg/dL (74-99); Non-African American GFR(CKD) >90 (>60 ml/min/1.73 sqM); Sodium 139 mmol/L (137-145); Total Bilirubin 0.2 mg/dL (0.2-1.3); Total Protein 6.4 g/dL (6.3-8.2)
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
[2020-03-04 22:33] VITALS: BP 129/73; PULSE 71; RESP 18; TEMP 97.7
== END 2020-03-04 22:33 | disposition home or self-care (01) ==
LOC: EC 19:57
DX: T74.11XA Adult physical abuse, confirmed, initial encounter (principal); G40.909 Epilepsy, unspecified, not intractable, without status epilepticus; R51 Headache; R05 Cough; G47.30 Sleep apnea, unspecified; F41.9 Anxiety disorder, unspecified; F20.9 Schizophrenia, unspecified; Z79.899 Other long term (current) drug therapy; Z88.0 Allergy status to penicillin; Z91.048 Other nonmedicinal substance allergy status; Z91.040 Latex allergy status; Z88.1 Allergy status to other antibiotic agents; Z88.8 Allergy status to other drugs, medicaments and biological substances; Z20.828 Contact with and (suspected) exposure to other viral communicable diseases; Y07.9 Unspecified perpetrator of maltreatment and neglect; Y93.89 Activity, other specified; Y92.009 Unspecified place in unspecified non-institutional (private) residence as the place of occurrence of the external cause
CPT/HCPCS: 36415; 93005; 80053; 83735; 85025; 86140; 72125; 70450; 99284; U0003

== ENCOUNTER 2021-03-27 05:59 | Emergency (ER) | payer OTHER ==
[2021-03-27] MEDS ORDERED: DEXAMETHASONE SOD PHOSPHATE 10 MG/ML 1 ML VIAL IM STA (06:06)
[2021-03-27] MEDS ORDERED: IPRATROPIUM-ALBUTEROL 3 ML NEB INHALATION STA (06:06)
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
[2021-03-27 06:08] VITALS: BP 126/88; RESP 20; TEMP 97.9
[2021-03-27 06:25] VITALS: PULSE 88
[2021-03-27 07:22] LABS: VBG PH 7.31 (7.31-7.41)
[2021-03-27] MEDS ORDERED: ACETAMINOPHEN TAB 500 MG TAB PO STA (07:32)
[2021-03-27] MEDS ORDERED: IBUPROFEN 600 MG TAB PO STA (07:32)
[2021-03-27] MEDS ORDERED: IBUPROFEN 600 MG STARTER PACK 4 TAB BTL PO STA (07:32)
== END 2021-03-27 07:45 | disposition home or self-care (01) ==
LOC: EC 05:59
DX: J98.01 Acute bronchospasm (principal); Z77.22 Contact with and (suspected) exposure to environmental tobacco smoke (acute) (chronic); G40.909 Epilepsy, unspecified, not intractable, without status epilepticus; F20.9 Schizophrenia, unspecified; F31.9 Bipolar disorder, unspecified; F12.90 Cannabis use, unspecified, uncomplicated; Z79.1 Long term (current) use of non-steroidal anti-inflammatories (NSAID); Z79.899 Other long term (current) drug therapy; Z88.0 Allergy status to penicillin; Z88.1 Allergy status to other antibiotic agents
CPT/HCPCS: 94640; 82375; 82803; 96372; 99285; J1100

== ENCOUNTER 2022-01-23 16:16 | Emergency (ER) | payer OTHER ==
[2022-01-23 16:36] VITALS: PULSE 82; RESP 18; TEMP 98.2
[2022-01-23 16:37] VITALS: BP 151/100
--- NOTE | 2022-01-23 17:01 | XR ---
EXAMINATION TYPE: XR hand complete RT DATE OF EXAM: 01/23/2022 4:46 PM INDICATION: Patient age:Female; 31 years old; Reason for study: pain; COMPARISON: None TECHNIQUE: 3 views of the right hand were obtained. FINDINGS: Normal alignment of the visualized joints. No acute osseous pathology is identified. No e vidence of soft tissue swelling. IMPRESSION: No acute osseous pathology.
--- NOTE | 2022-01-23 17:38 | ED ---
General Adult HPI - General Chief complaint: Extremity Injury, Upper Stated complaint: hand injury Time Seen by Provider: 01/23/22 17:13 Source: patient Mode of arrival: ambulatory Limitations: no limitations - History of Present Illness Initial comments: Patient is a pleasant 31-year-old female presents to the emergency room after punching a white process yesterday. She reports continued right hand pain and difficulty with range of motion due to swelling. She denies any wounds or any other pain elsewhere. She states that she has placed some ice on the location and utilized [id number] Tylenol and Motrin for pain without relief. She has a past medical history significant for sleep apnea, headaches and bipolar disorder. She denies any suicidal or homicidal thoughts at this time. She denies any other complaints or concerns at this time. - Related Data Home Medications Medication Instructions Recorded Confirmed Ipratropium/Albuter 20-100Mcg 1 puff INHALATION RT-QID 11/06/19 11/06/19 [Combivent Respimat 20-100Mcg Inhaler] Loratadine 10 mg PO DAILY 11/06/19 11/06/19 Meclizine [Antivert] 25 mg PO TID PRN 11/06/19 11/06/19 Montelukast [Singulair] 10 mg PO HS 11/06/19 11/06/19 Naproxen 500 mg PO Q12H PRN 11/06/19 11/06/19 Topiramate [Topamax] 50 mg PO HS 11/06/19 11/06/19 levETIRAcetam [Keppra] 500 mg PO BID 11/06/19 11/06/19 norgestimate-ethinyl estradioL 1 tab PO DAILY 11/06/19 11/06/19 [Tri-Sprintec Tablet] oxyCODONE-APAP 10-325MG [Percocet 1 tab PO TID PRN 11/06/19 11/06/19 10-325 mg] tiZANidine [Zanaflex] 4 mg PO DAILY PRN 11/06/19 11/06/19 Previous Rx's Medication Instructions Recorded Sulfamethox-Tmp 800-160Mg [Bactrim 1 tab PO Q12HR #20 tab 11/04/19 DS 800-160 mg] Ibuprofen 800 mg PO Q8H 10 Days #30 tab 01/23/22 Allergies Allergy/AdvReac Type Severity Reaction Status Date / Time amoxicillin Allergy Rash/Hives Verified 01/23/22 16:36 divalproex sodium Allergy Unknown Verified 01/23/22 16:36 [From Depakote] gabapentin Allergy Unknown Verified 01/23/22 16:36 lamotrigine [From Lamictal] Allergy Unknown Verified 01/23/22 16:36 latex Allergy Unknown Verified 01/23/22 16:36 lithium [[place]] Allergy Unknown Verified 01/23/22 16:36 clindamycin AdvReac Unknown Verified 01/23/22 16:36 Penicillins AdvReac Rash/Hives Verified 01/23/22 16:36 Review of Systems ROS Statement: Those systems with pertinent positive or pertinent negative responses have been documented in the HPI. ROS Other: All systems not noted in ROS Statement are negative. Past Medical History Past Medical History: Seizure Disorder Additional Past Medical History / Comment(s): sleep apnea, headaches History of Any Multi-Drug Resistant Organisms: None Reported Past Surgical History: Orthopedic Surgery Past Psychological History: Bipolar, Schizophrenia Smoking Status: Never smoker Past Alcohol Use History: None Reported Past Drug Use History: Marijuana General Exam Limitations: no limitations General appearance: alert, in no apparent distress Head exam: Present: atraumatic, normocephalic, normal inspection Eye exam: Present: normal appearance, PERRL, EOMI. Absent: scleral icterus, conjunctival injection, periorbital swelling ENT exam: Present: normal exam, mucous membranes moist Neck exam: Present: normal inspection Respiratory exam: Absent: respiratory distress, accessory muscle use Right Hand Wrist exam: Present: full ROM (Limited due to pain, full passive ROM), tenderness. Absent: abrasion, laceration, ecchymosis, crepitus, dislocation, erythema Vascular: Absent: vascular compromise Neurological exam: Present: alert, oriented X3, CN II-XII intact Psychiatric exam: Present: normal affect, normal mood Skin exam: Present: warm, dry, intact, normal color. Absent: rash Course Vital Signs 01/23/22 16:33 Temperature 98.2 F Pulse Rate 82 Respiratory 18 Rate Blood Pressure 151/100 O2 Sat by Pulse 99 Oximetry Medical Decision Making - Medical Decision Making X-ray of the right hand negative for acute fracture or dislocation. No indication for further diagnostic testing at this time. Will give IM Toradol for pain relief along with a prescription of ibuprofen to pharmacy. Advised to follow-up with primary care provider Along with orthopedist if pain persists. Encouraged range of motion as tolerated along with ice and NSAIDs. Case discussed with Dr. Barreto - Radiology Data Radiology results: report reviewed, image reviewed X-ray of the right hand shows No acute osseous processes. No fracture dislocation or soft tissue swelling. Disposition Clinical Impression: Hand pain, right Disposition: HOME SELF-CARE Instructions (If sedation given, give patient instructions): Hand Sprain (ED) Additional Instructions: Range of motion as tolerated and encouraged. Utilize icing and ibuprofen as needed for pain. If pain persists please follow-up with orthopedist. Follow-up with your primary care provider next week. Please return to the Emergency Department if symptoms worsen or any other concerns. Prescriptions: Ibuprofen 800 mg PO Q8H 10 Days #30 tab Is patient prescribed a controlled substance at d/c from ED?: No Referrals: Elissa Perkins MD [Primary Care Provider] - 1-2 days Emmanuel Caldwell MD [STAFF PHYSICIAN] - 1-2 days Time of Disposition: 17:38
[2022-01-23] MEDS ORDERED: KETOROLAC 15 MG/ML 1 ML VIAL IVP STA (17:42)
== END 2022-01-23 17:54 | disposition home or self-care (01) ==
LOC: EC 16:16
DX: M79.641 Pain in right hand (principal); Z88.0 Allergy status to penicillin; Z88.8 Allergy status to other drugs, medicaments and biological substances; Z91.040 Latex allergy status; Z88.1 Allergy status to other antibiotic agents; W22.8XXA Striking against or struck by other objects, initial encounter
CPT/HCPCS: 73130; 99283; 96374; J1885

== ENCOUNTER 2022-08-23 14:53 | Emergency (ER) | payer OTHER ==
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
[2022-08-23] MEDS ORDERED: KETOROLAC 15 MG/ML 1 ML VIAL IVP STA (15:33)
[2022-08-23] MEDS ORDERED: SODIUM CHLORIDE 0.9% 500 ML 500 ML IV ONE (15:33)
[2022-08-23 16:01] LABS: Appearance,Urine Cloudy (Clear); Bacteria,Urine Rare /hpf; Bilirubin,Urine Negative (Negative); Blood,Urine Trace (Negative); Color,Urine Yellow; Glucose,Urine (UA) Negative (Negative); Ketones,Urine Negative (Negative); Leukocyte Esterase,Urine Large (Negative); Mucus,Urine Rare /hpf; Nitrite,Urine Negative (Negative); PH, Urine 7.5 (5.0-8.0); Protein,Urine 2+ (Negative); RBC,Urine 17 /hpf (0-5); Specific Gravity,Urine 1.016 (1.001-1.035); Squamous Epithelial Cell,Urine 3 /hpf (0-4); Urobilinogen,Urine <2.0 mg/dL (<2.0); WBC,Urine 158 /hpf (0-5)
[2022-08-23 16:13] LABS: Basophils % (A) 0 %; Eosinophils % (A) 0 %; HCT 41.5 % (34.0-46.0); HGB 13.8 gm/dL (11.4-16.0); Lymphocytes # (A) 1.4 k/uL (1.0-4.8); Lymphocytes % (A) 12 %; MCH 27.6 pg (25.0-35.0); MCHC 33.2 g/dL (31.0-37.0); MCV 83.1 fL (80.0-100.0); Mean Platelet Volume 8.4; Monocytes # (A) 0.8 k/uL (0-1.0); Monocytes % (A) 7 %; Neutrophils # (A) 8.9 k/uL (1.3-7.7); Neutrophils % (A) 78 %; Platelet Count 267 k/uL (150-450); RDW 14.7 % (11.5-15.5); WBC 11.5 k/uL (3.8-10.6)
[2022-08-23 16:19] LABS: ALT 42 U/L (4-34); AST 43 U/L (14-36); African American GFR (CKD) >90 (>60 ml/min/1.73 sqM); Albumin 4.2 g/dL (3.5-5.0); Alkaline Phosphatase 56 U/L (38-126); Anion Gap 5 mmol/L; Blood Urea Nitrogen 10 mg/dL (7-17); Calcium 9.1 mg/dL (8.4-10.2); Carbon Dioxide 24 mmol/L (22-30); Chloride 107 mmol/L (98-107); Glucose 96 mg/dL (74-99); Lipase 55 U/L (23-300); Non-African American GFR(CKD) >90 (>60 ml/min/1.73 sqM); Sodium 136 mmol/L (137-145); Total Bilirubin 0.7 mg/dL (0.2-1.3); Total Protein 7.3 g/dL (6.3-8.2)
[2022-08-23 16:31] LABS: Potassium 5.1 mmol/L (3.5-5.1)
[2022-08-23] MEDS ORDERED: MORPHINE SULFATE 2 MG/ML SYRINGE IVP ONE (17:10)
--- NOTE | 2022-08-23 17:11 | XR ---
EXAMINATION TYPE: XR Hip RT and AP Pelvis DATE OF EXAM: 08/23/2022 4:53 PM INDICATION: Patient age:Female; 32 years old; Reason for study: R hip pain; PHH. COMPARISON: No relevant priors TECHNIQUE: The right hip was examined in the frontal and lateral projections and a AP pelvis. FINDINGS: No evidence of any acute osseous pathology, joint dislocation, or soft tissue swelling. Vis ualized portions of the pelvis are within normal limits. IMPRESSION: No acute osseous pathology.
[2022-08-23] MEDS ORDERED: LORazepam 2 MG/ML INJ IV STA (17:12)
[2022-08-23 17:22] VITALS: BP 145/82; RESP 18
[2022-08-23 17:28] VITALS: PULSE 99; TEMP 98.9
== END 2022-08-23 17:51 | disposition home or self-care (01) ==
LOC: EC 14:53
DX: S39.013A Strain of muscle, fascia and tendon of pelvis, initial encounter (principal); F31.9 Bipolar disorder, unspecified; F12.90 Cannabis use, unspecified, uncomplicated; J44.9 Chronic obstructive pulmonary disease, unspecified; Z88.0 Allergy status to penicillin; Z91.040 Latex allergy status; Z88.8 Allergy status to other drugs, medicaments and biological substances; Z91.048 Other nonmedicinal substance allergy status; Z88.1 Allergy status to other antibiotic agents; Z79.899 Other long term (current) drug therapy; X58.XXXA Exposure to other specified factors, initial encounter
CPT/HCPCS: 36415; 80053; 83690; 85025; 81001; 81025; 73502; 99284; 96374; 96361; J1885

== ENCOUNTER 2022-10-11 17:45 | Emergency (ER) | payer OTHER ==
[2022-10-11] MEDS ORDERED: DIPH,PERTUS(ACELL)TETVAC-LF 0.5 ML VIAL IM ONE (18:25)
[2022-10-11] MEDS ORDERED: MORPHINE SULFATE 4 MG/ML SYRINGE IM STA (18:25)
--- NOTE | 2022-10-11 18:26 | ED ---
Wound/Laceration HPI - General Chief Complaint: Wound/Laceration Stated Complaint: Thumb Lac Time Seen by Provider: 10/11/22 18:10 Source: patient Mode of arrival: ambulatory Limitations: no limitations - History of Present Illness Initial Comments: Patient is a 32-year-old female presenting to the emergency room with complaints of accidentally cutting her left thumb 3 days ago with a box office attendant blade. She quickly cleaned and dressed the wound but did not seek medical attention at that time. She is concerned now as she has significant pain at the site of the laceration along with pain with range of motion and notes some purulent discharge without odor. She is unsure regarding her tetanus vaccination status and is going to have her tetanus vaccine updated. She denies any other complaints or concerns at this time including any chest pain, shortness of breath, abdominal pain, nausea, vomiting, weakness, fevers or chills. She does have a past medical history significant for seizures, sleep apnea and headaches. - Related Data Home Medications Medication Instructions Recorded Confirmed Naproxen 500 mg PO Q12H PRN 11/06/19 08/23/22 norgestimate-ethinyl estradioL 1 tab PO DAILY 11/06/19 08/23/22 [Tri-Sprintec Tablet] Cenobamate [Xcopri] 100 mg PO DAILY 08/23/22 08/23/22 Fluticasone Propion/Salmeterol 1 puff INHALATION RT-BID 08/23/22 08/23/22 [Advair 100-50 Diskus] HYDROcodone/APAP 10-325MG [[place] 1 tab PO TID PRN 08/23/22 08/23/22 10-325] Ipratropium/Albuter 20-100Mcg 1 puff INHALATION RT-QID 08/23/22 08/23/22 [Combivent Respimat 20-100Mcg Inhaler] Liraglutide [Saxenda] 1.2 mg SQ DAILY 08/23/22 08/23/22 Lurasidone [Latuda] 20 mg PO DAILY 08/23/22 08/23/22 Rizatriptan Benzoate [Rizatriptan] 10 mg PO BID PRN 08/23/22 08/23/22 Valtoco 10mg/[place] Nasal 1 spray NASAL DAILY PRN 08/23/22 08/23/22 levETIRAcetam [Keppra] 750 mg PO Q12HR 08/23/22 08/23/22 lisinopriL [Zestril] 10 mg PO DAILY 08/23/22 08/23/22 Previous Rx's Medication Instructions Recorded Nitrofurantoin Monohyd/M-Cryst 100 mg PO Q12HR #14 cap 08/23/22 [Macrobid] Sulfamethox-Tmp 800-160Mg [Bactrim 1 tab PO Q12HR 5 Days #10 tab 10/11/22 DS 800-160 mg] Allergies Allergy/AdvReac Type Severity Reaction Status Date / Time amoxicillin Allergy Rash/Hives Verified 10/11/22 18:08 divalproex sodium Allergy Unknown Verified 10/11/22 18:08 [From Depakote] gabapentin Allergy Unknown Verified 10/11/22 18:08 lamotrigine [From Lamictal] Allergy Unknown Verified 10/11/22 18:08 latex Allergy Unknown Verified 10/11/22 18:08 lithium [[place]] Allergy Unknown Verified 10/11/22 18:08 Penicillins Allergy Rash/Hives Verified 10/11/22 18:08 clindamycin AdvReac Unknown Verified 10/11/22 18:08 Review of Systems ROS Statement: Those systems with pertinent positive or pertinent negative responses have been documented in the HPI. ROS Other: All systems not noted in ROS Statement are negative. Past Medical History Past Medical History: Seizure Disorder Additional Past Medical History / Comment(s): sleep apnea, headaches History of Any Multi-Drug Resistant Organisms: None Reported Past Surgical History: Orthopedic Surgery Past Psychological History: Bipolar, Schizophrenia Smoking Status: Never smoker Past Alcohol Use History: None Reported Past Drug Use History: Marijuana General Exam Limitations: no limitations General appearance: alert, in no apparent distress Head exam: Present: atraumatic, normocephalic, normal inspection Eye exam: Present: normal appearance, PERRL, EOMI. Absent: scleral icterus, conjunctival injection, periorbital swelling ENT exam: Present: normal exam, mucous membranes moist Neck exam: Present: normal inspection, full ROM Respiratory exam: Absent: respiratory distress, accessory muscle use Cardiovascular Exam: Present: regular rate GI/Abdominal exam: Absent: distended Left Hand Wrist exam: Present: tenderness, laceration (Laceration to left dorsal aspect of film linear across the interphalangeal joint approximately 1-1/4 cm in diameter. No surrounding erythema near. No purulent drainage). Absent: full ROM (Limited by pain), deformity, nail avulsion Vascular: Absent: vascular compromise Back exam: Present: normal inspection Neurological exam: Present: alert, oriented X3, CN II-XII intact Psychiatric exam: Present: normal affect, normal mood Skin exam: Present: other (Laceration as above) Course Vital Signs 10/11/22 10/11/22 10/11/22 18:05 19:08 19:24 Temperature 98.8 F 98.6 F Pulse Rate 78 56 L Respiratory 18 16 Rate Blood Pressure 147/84 111/49 O2 Sat by Pulse 96 98 Oximetry Procedures - Orthopedic Splinting/Casting Injury #1 Side: left Upper Extremity Injury Location: finger (thumb) Upper Extremity Immobilizer: finger (other) Medical Decision Making - Medical Decision Making Was pt. sent in by a medical professional or institution (, PA, ORACLE DEVELOPER, urgent care, hospital, or usp...) When possible be specific @ -No Did you speak to anyone other than the patient for history (EMS, parent, family, police, friend...)? What history was obtained from this source @ -No Did you review nursing and triage notes (agree or disagree)? Why? @ -I reviewed and agree with nursing and triage notes Were old charts reviewed (outside hosp., previous admission, EMS record, old EKG, old radiological studies, urgent care reports/EKG's, usp records)? Report findings @ -No old charts were reviewed Differential Diagnosis (chest pain, altered mental status, abdominal pain women, abdominal pain men, vaginal bleeding, weakness, fever, dyspnea, syncope, headache, dizziness, GI bleed, back pain, seizure, CVA, palpatations, mental health, musculoskeletal)? @ -Differential Musculoskeletal Muscular strain, contusion, ligament sprain, fracture, arthritis, septic arthritis, bursitis, cellulitis, muscle spasm, nerve compression, DVT, arterial occlusion, herpes zoster, electrolyte abnormality, tumor.... This is not meant to be in all inclusive list EKG interpreted by me (3pts min.). @ -None done X-rays interpreted by me (1pt min.). @ -X-ray left thumb: No fracture, dislocation, subluxation, or soft tissue swelling. CT interpreted by me (1pt min.). @ -None done U/S interpreted by me (1pt. min.). @ -None done What testing was considered but not performed or refused? (CT, X-rays, U/S, labs)? Why? @ -None What meds were considered but not given or refused? Why? @ -None Did you discuss the management of the patient with other professionals ( professionals i.e. , PA, ORACLE DEVELOPER, lab, RT, psych nurse, social media campaign manager, shoe laster, teacher, hospital chief financial officer, case manager specialist)? Give summary @ -No Was smoking cessation discussed for >3mins.? @ -No Was critical care preformed (if so, how long)? @ -No Were there social determinants of health that impacted care today? How? (Homelessness, low income, unemployed, alcoholism, drug addiction, transportation, low edu. Level, literacy, decrease access to med. care, longterm, rehab)? @ -No Was there de-escalation of care discussed even if they declined (Discuss DNR or withdrawal of care, Hospice)? DNR status @ -No What co-morbidities impacted this encounter? (DM, HTN, Smoking, COPD, CAD, Cancer, CVA, ARF, Chemo, Hep., AIDS, mental health diagnosis, sleep apnea, morbid obesity)? @ -None Was patient admitted / discharged? Hospital course, mention meds given and route, prescriptions, significant lab abnormalities, going to OR and other pertinent info. @ -34-year-old female presenting to the emergency room concerns regarding pain swelling and discharge from laceration from 3 days ago. Also unsure of tetanus status. Significant pain with inspection no purulent drainage. Will update tetanus status, give morphine IM and obtain x-ray of left thumb to evaluate for fracture and osteomyelitis. Will dress laceration and place Steri- Strips on but should due to duration of time from injury to presentation unable to close with sutures or exofin. Pain improved with IM morphine. Tolerated tetanus vaccine. Steri-Strips applied without complication. Thumb splint applied to assist with pain. Will give short course of antibiotic therapy. No indication for further diagnostic imaging or laboratory studies at this time. Questions and concerns answered. Return parameters to the emergency room discussed. Advised follow-up with orthopedist and primary care provider. Will discharge home in stable condition with left thumb sprain/laceration encouraging localized wound care completion of antibiotic therapy and follow-up with primary care provider. Undiagnosed new problem with uncertain prognosis? @ -No Drug Therapy requiring intensive monitoring for toxicity (Heparin, Nitro, Insulin, Cardizem)? @ -No Were any procedures done? @ -Yes, Steri-Strips and thumb splint applied Diagnosis/symptom? @ -Laceration left thumb Acute, or Chronic, or Acute on Chronic? @ -Acute Uncomplicated (without systemic symptoms) or Complicated (systemic symptoms)? @ -Uncomplicated Side effects of treatment? @ -No Exacerbation, Progression, or Severe Exacerbation? @ -No Poses a threat to life or bodily function? How? (Chest pain, [place], [place], pneumonia, PE, COPD, DKA, ARF, appy, cholecystitis, CVA, Diverticulitis, Homicidal, Suicidal, threat to staff... and all critical care pts) @ -No Diagnosis/symptom? @ -Left thumb pain Acute, or Chronic, or Acute on Chronic? @ -Acute Uncomplicated (without systemic symptoms) or Complicated (systemic symptoms)? @ -Uncomplicated Side effects of treatment? @ -none Exacerbation, Progression, or Severe Exacerbation] @ -no Poses a threat to life or bodily function? @ -no. Case discussed with Dr. Lindquist. - Radiology Data Radiology results: report reviewed, image reviewed Disposition Clinical Impression: Laceration, Pain of left thumb Disposition: HOME SELF-CARE Condition: Stable Instructions (If sedation given, give patient instructions): Laceration (ED) Additional Instructions: Keep wound clean and dry. Utilize splint for comfort. His follow-up with orthopedist. Please complete course of antibiotic therapy. Please return to the Emergency Department if symptoms worsen or any other concerns. Prescriptions: Sulfamethox-Tmp 800-160Mg [Bactrim DS 800-160 mg] 1 tab PO Q12HR 5 Days #10 tab Is patient prescribed a controlled substance at d/c from ED?: No Referrals: Elissa Perkins MD [Primary Care Provider] - 1-2 days Miguel Gould PAC [PHYSICIAN FLUSH TESTER] - 1-2 days Time of Disposition: 19:21
--- NOTE | 2022-10-11 19:09 | XR ---
EXAMINATION TYPE: XR finger LT DATE OF EXAM: 10/11/2022 COMPARISON: NONE HISTORY: Laceration TECHNIQUE: 3 views FINDINGS: There is no evidence of fracture nor dislocation. First metacarpal is intact. There are no erosions. No subluxation. IMPRESSION: Negative left thumb exam. No fracture.
[2022-10-11 19:23] VITALS: TEMP 98.6
[2022-10-11 19:27] VITALS: BP 111/49; PULSE 56; RESP 16
== END 2022-10-11 19:31 | disposition home or self-care (01) ==
LOC: EC 17:45
DX: S61.012A Laceration without foreign body of left thumb without damage to nail, initial encounter (principal); F31.9 Bipolar disorder, unspecified; F12.90 Cannabis use, unspecified, uncomplicated; Z88.0 Allergy status to penicillin; Z91.040 Latex allergy status; Z88.8 Allergy status to other drugs, medicaments and biological substances; Z23 Encounter for immunization; W26.8XXA Contact with other sharp object(s), not elsewhere classified, initial encounter
CPT/HCPCS: 73140; 90715; 99283; 96372; 90471; 12001; J2270

== ENCOUNTER 2022-10-21 07:56 | Day surgery (SDC) | payer OTHER ==
--- NOTE | 2022-10-19 12:48 | P.HPOR ---
History of Present Illness H&P Date: 10/19/22 Chief Complaint: Left thumb extensor tendon laceration Subjective: This is a 32 year old female that presents today for initial evaluation regarding a left thumb injury that occurred on 10/06/22 where she cut the dorsal aspect of her thumb with an exacto knife. Since then she has had pain in the hand and limited range of motion. She denies any other areas of injury. She has a history of a ganglion cyst excision on this hand. She has been on antibiotics since the injury. Physical Examination: LUE: AIN/PIN/Radial/Ulnar/Median motor intact. Radial/Ulnar/Median SILT. 2+/4 Radial/Ulnar pulses palpated. 5/5 APB, 5/5 FDI. Negative Finkelsteins, negative CMC grind, negative Durkan's compression. Unable to extend IP joint of thumb. 1.5cm transverse laceration at level of proximal phalanx of thumb. Able to fire [employer]. Imaging: X-Rays of the left hand 3v taken in the ED reveal no acute fracture Impression: 1.) Left thumb EPL tendon laceration Plan: Diagnosis and treatment options were discussed with the patient. She has findings concerning for EPL tendon laceration. I recommend surgical exploration with left thumb EPL tendon laceration repair. Risks and benefits of surgery including bleeding, infection, damage to surrounding tissue, need for further surgery, residual numbness were discussed and the patient wished to go forward with surgery. The patient was agreeable with this plan. -Jacob Lopez DO Orthopedic Hand/Upper Extremity Surgeon Past Medical History Past Medical History: Seizure Disorder Additional Past Medical History / Comment(s): sleep apnea, headaches History of Any Multi-Drug Resistant Organisms: None Reported Past Surgical History: Orthopedic Surgery Past Psychological History: Bipolar, Schizophrenia Smoking Status: Never smoker Past Alcohol Use History: None Reported Past Drug Use History: Marijuana Medications and Allergies Home Medications Medication Instructions Recorded Confirmed Type Naproxen 500 mg PO Q12H PRN 11/06/19 08/23/22 History norgestimate-ethinyl estradioL 1 tab PO DAILY 11/06/19 08/23/22 History [Tri-Sprintec Tablet] Cenobamate [Xcopri] 100 mg PO DAILY 08/23/22 08/23/22 History Fluticasone Propion/Salmeterol 1 puff INHALATION RT-BID 08/23/22 08/23/22 History [Advair 100-50 Diskus] HYDROcodone/APAP 10-325MG [[place] 1 tab PO TID PRN 08/23/22 08/23/22 History 10-325] Ipratropium/Albuter 20-100Mcg 1 puff INHALATION RT-QID 08/23/22 08/23/22 History [Combivent Respimat 20-100Mcg Inhaler] Liraglutide [Saxenda] 1.2 mg SQ DAILY 08/23/22 08/23/22 History Lurasidone [Latuda] 20 mg PO DAILY 08/23/22 08/23/22 History Nitrofurantoin Monohyd/M-Cryst 100 mg PO Q12HR #14 cap 08/23/22 Rx [Macrobid] Rizatriptan Benzoate [Rizatriptan] 10 mg PO BID PRN 08/23/22 08/23/22 History Valtoco 10mg/[place] Nasal 1 spray NASAL DAILY PRN 08/23/22 08/23/22 History levETIRAcetam [Keppra] 750 mg PO Q12HR 08/23/22 08/23/22 History lisinopriL [Zestril] 10 mg PO DAILY 08/23/22 08/23/22 History Sulfamethox-Tmp 800-160Mg [Bactrim 1 tab PO Q12HR 5 Days #10 tab 10/11/22 Rx DS 800-160 mg] Allergies Allergy/AdvReac Type Severity Reaction Status Date / Time amoxicillin Allergy Rash/Hives Verified 10/11/22 18:08 divalproex sodium Allergy Unknown Verified 10/11/22 18:08 [From Depakote] gabapentin Allergy Unknown Verified 10/11/22 18:08 lamotrigine [From Lamictal] Allergy Unknown Verified 10/11/22 18:08 latex Allergy Unknown Verified 10/11/22 18:08 lithium [[place]] Allergy Unknown Verified 10/11/22 18:08 Penicillins Allergy Rash/Hives Verified 10/11/22 18:08 clindamycin AdvReac Unknown Verified 10/11/22 18:08 Physical Examination Osteopathic Statement: *. No significant issues noted on an osteopathic structural exam other than those noted in the History and Physical/Consult.
[2022-10-19 16:11] VITALS: BMI 51.7
[~2022-10-21 07:56] MED LIST: DEXAMETHASONE SOD PHOSPHATE 4 MG/ML 1 ML VIAL IV ONE; HYDROmorphone 0.5 MG/0.5 ML SYRINGE IVP PRN; LACTATED RINGERS 1,000 ML IV SCH; MIDAZOLAM 2 MG/2 ML VIAL IV PRN; ONDANSETRON 4 MG/2 ML VIAL IVP ONE; SCOPOLAMINE 1 MG/72 HR PATCH TRANSDERM ONE; ceFAZolin 3 GM in SODIUM CHLORIDE 0.9% 100 ML IVPB PRN
[2022-10-21 08:40] VITALS: TEMP 97.5
[2022-10-21] MEDS ORDERED: levETIRAcetam 500 MG TAB PO STA (09:10)
[2022-10-21] MEDS ORDERED: LIDOCAINE 0.5%-EPI 1:200,000 50 ML VIAL SQ ONE ×3 (10:32)
[2022-10-21 11:12] VITALS: BP 112/71; PULSE 65; RESP 20
--- NOTE | 2022-10-21 17:41 | P.OP ---
Date of Procedure: 10/21/22 Preoperative Diagnosis: Left thumb laceration 3cm Postoperative Diagnosis: Left thumb laceration 3cm Procedure(s) Performed: 1.) Left hand exploration. 2.) Left thumb laceration repair 3cm Anesthesia: local Surgeon: Jacob Lopez Patcher Bowling Ball #1: Fernando Yang Estimated Blood Loss (ml): 0 Pathology: none sent Condition: stable Disposition: PACU Description of Procedure: This is a 32 year old female who presents today for surgical exploration of a left dorsal thumb laceration. Patient presented initially with the inabilty to move the thumb therefore thumb extensor tendon laceration could not be excluded so she wished to proceed with left thumb exploration. Risks and benefits of surgery were discussed with the patient including bleeding, damage to surrounding tissue, infection, need for further surgery and the patient wished to proceed with surgical intervention. The patient was seen in the pre-operative area by myself. Consent and H&P were completed and updated. The correct extremity was marked in the pre-operative area by myself and all other questions were answered. Operative Narrative: The patient was brought to the operating room by the department of anesthesia. They remained on the portable stretcher and a rolling hand table was brought to the side of the operative extremity. Pre-operative time out was performed indicating the correct patient, procedure and laterality. All in the room agreed. Regional block was performed with 10cc's of 0.5% Lidocaine with epinephrine in a 50:50 mixture on the dorsal aspect of the thumb. The left upper extremity was then prepped and draped in normal sterile fashion. The 3cm transverse laceration was extended distally and proximally with 15 blade scalpel. Blunt dissection was taken down through subcutaneous tissues. The EPL tendon was identified and was found to be intact. The patient was asked to move the thumb and was able to now flicker the thumb with local anesthestic present. There was disruption of the overlying tenosynovium of the EPL tendon but the tendon intself was intact. The wound was then irrigated and then skin closure was performed with 4-0 nylon suture. Sterile dressing with adaptic, 4x4s, webril and cast padding was applied. The patient tolerated the procedure well and was transferred to PACU in stable condition. Jacob Lopez D.O. Orthopedic Hand/Upper Extremity Surgeon
== END 2022-10-21 11:46 | disposition home or self-care (01) ==
LOC: OR 07:56
PROVIDERS: ATTEND Orthopaedic Surgery Hand Surgery
DX: S61.012A Laceration without foreign body of left thumb without damage to nail, initial encounter (principal); G40.909 Epilepsy, unspecified, not intractable, without status epilepticus; G47.30 Sleep apnea, unspecified; F20.9 Schizophrenia, unspecified; F31.9 Bipolar disorder, unspecified; Z79.51 Long term (current) use of inhaled steroids; Z91.040 Latex allergy status; Z88.0 Allergy status to penicillin; Z88.1 Allergy status to other antibiotic agents; Z79.899 Other long term (current) drug therapy; X58.XXXA Exposure to other specified factors, initial encounter
CPT/HCPCS: 81025

== ENCOUNTER 2022-11-16 21:59 | Emergency (ER) | payer OTHER ==
[2022-11-16 22:11] VITALS: TEMP 98
--- NOTE | 2022-11-17 00:35 | ED ---
General Adult HPI - General Chief complaint: Recheck/Abnormal Lab/Rx Stated complaint: Post-op complications, Pain Time Seen by Provider: 11/17/22 00:13 Source: patient, RN notes reviewed, old records reviewed Mode of arrival: ambulatory Limitations: no limitations - History of Present Illness Initial comments: This is a well-appearing 32-year-old female that presents ambulatory with complaints of pain over her vagus nerve stimulator site. Patient states that it was placed on October 22 at [facility] in [place]. She states she's had no fevers, no nausea vomiting or diarrhea. No chest pain. No drainage. No redness. States it feels like it is tipped and not flat. -: days(s) (2) Severity scale (1-10): 9 Quality: constant Consistency: constant Associated Symptoms: other (pain in left arm) - Related Data Home Medications Medication Instructions Recorded Confirmed norgestimate-ethinyl estradioL 1 tab PO DAILY 11/06/19 10/19/22 [Tri-Sprintec Tablet] Cenobamate [Xcopri] 100 mg PO DAILY 08/23/22 10/19/22 Fluticasone Propion/Salmeterol 1 puff INHALATION RT-BID 08/23/22 10/19/22 [Advair 100-50 Diskus] HYDROcodone/APAP 10-325MG [[place] 1 tab PO TID PRN 08/23/22 10/19/22 10-325] Ipratropium/Albuter 20-100Mcg 1 puff INHALATION RT-QID 08/23/22 10/19/22 [Combivent Respimat 20-100Mcg Inhaler] Rizatriptan Benzoate [Rizatriptan] 10 mg PO BID PRN 08/23/22 10/19/22 Valtoco 10mg/[place] Nasal 1 spray NASAL DAILY PRN 08/23/22 10/19/22 lisinopriL [Zestril] 10 mg PO DAILY 08/23/22 10/19/22 Atorvastatin [Lipitor] 20 mg PO HS 10/19/22 10/19/22 Liraglutide [Saxenda] 3 mg SQ DAILY 10/19/22 10/19/22 Lurasidone [Latuda] 80 mg PO DAILY 10/19/22 10/19/22 Meclizine [Antivert] 25 mg PO TID 10/19/22 10/19/22 Naproxen [Naprosyn] 500 mg PO BID 10/19/22 10/19/22 levETIRAcetam [Keppra] 1,000 mg PO Q12HR 10/19/22 10/19/22 Previous Rx's Medication Instructions Recorded HYDROcodone/APAP 5-325MG [[place] 1 tab PO Q6HR PRN 3 Days #24 tab 10/21/22 5-325] Allergies Allergy/AdvReac Type Severity Reaction Status Date / Time amoxicillin Allergy Rash/Hives Verified 10/21/22 08:34 divalproex sodium Allergy Unknown Verified 10/21/22 08:34 [From Depakote] gabapentin Allergy Unknown Verified 10/21/22 08:34 lamotrigine [From Lamictal] Allergy Unknown Verified 10/21/22 08:34 latex Allergy Unknown Verified 10/21/22 08:34 lithium [[place]] Allergy Unknown Verified 10/21/22 08:34 Penicillins Allergy Rash/Hives Verified 10/21/22 08:34 clindamycin AdvReac Unknown Verified 10/21/22 08:34 Review of Systems ROS Statement: Those systems with pertinent positive or pertinent negative responses have been documented in the HPI. ROS Other: All systems not noted in ROS Statement are negative. Past Medical History Past Medical History: Asthma, COPD, Hyperlipidemia, Hypertension, Seizure Disorder, Sleep Apnea/CPAP/BIPAP Additional Past Medical History / Comment(s): NO CPAP USED. MIGRAINE headaches. LAST SEIZURE . HX ALCOHOL SYNDROME History of Any Multi-Drug Resistant Organisms: None Reported Past Surgical History: Orthopedic Surgery Additional Past Surgical History / Comment(s): GANGLION CYST REMOVED FROM LT WRIST. vagus nerve stimulator. BILAT KNEE SCOPES Past Anesthesia/Blood Transfusion Reactions: No Reported Reaction Past Psychological History: Bipolar, Schizophrenia Smoking Status: Never smoker - Past Family History Mother Family Medical History: No Reported History General Exam Limitations: no limitations General appearance: alert, in no apparent distress Head exam: Present: atraumatic Eye exam: Present: normal appearance. Absent: scleral icterus, conjunctival injection, periorbital swelling Neck exam: Present: full ROM. Absent: tenderness, meningismus Respiratory exam: Present: other (Vagus stimulator felt to left chest wall. Surgical site without drainage or erythema. No tenderness to palpation.). Absent: respiratory distress, accessory muscle use Cardiovascular Exam: Present: regular rate GI/Abdominal exam: Present: soft Extremities exam: Present: full ROM, normal capillary refill. Absent: tenderness, pedal edema Neurological exam: Present: alert, oriented X3, normal gait Psychiatric exam: Present: normal affect, normal mood Skin exam: Present: warm, dry, normal color. Absent: cyanosis, diaphoretic, petechiae, pallor Course Vital Signs 11/16/22 22:08 Temperature 98 F Pulse Rate 91 Respiratory 20 Rate Blood Pressure 140/97 O2 Sat by Pulse 98 Oximetry Medical Decision Making - Medical Decision Making Patient had a vagus nerve stimulator placed at [facility] in [place] on October 22. She states that she feels as though the stimulator has tipped and is no longer flat. Upon palpation there is no erythema, redness or drainage. Stimulator feels flat. No pain with palpation. I did explain to the patient that I do not see any concerning problems with the stimulator site. Patient was directed to follow-up with her doctor this week. Return to the emergency room with pain or concerning symptoms including redness drainage or fevers. She is agreeable to this plan of care. Patient has history of asthma, COPD, hypertension, seizure, migraine headaches, bipolar and schizophrenia. Case discussed with Dr. Severino. Was pt. sent in by a medical professional or institution (, PA, [employer], urgent c are, hospital, or correction...) When possible be specific @ -No Did you speak to anyone other than the patient for history (EMS, parent, family, police, friend...)? What history was obtained from this source @ -No Did you review nursing and triage notes (agree or disagree)? Why? @ -I reviewed and agree with nursing and triage notes Were old charts reviewed (outside hosp., previous admission, EMS record, old EKG, old radiological studies, urgent care reports/EKG's, correction records)? Report findings @ -No old charts were reviewed Differential Diagnosis (chest pain, altered mental status, abdominal pain women, abdominal pain men, vaginal bleeding, weakness, fever, dyspnea, syncope, headache, dizziness, GI bleed, back pain, seizure, CVA, palpatations, mental health, musculoskeletal)? @ -not applicable EKG interpreted by me (3pts min.). @ -n/a X-rays interpreted by me (1pt min.). @ -None done CT interpreted by me (1pt min.). @ -None done U/S interpreted by me (1pt. min.). @ -None done What testing was considered but not performed or refused? (CT, X-rays, U/S, labs)? Why? @ -None What meds were considered but not given or refused? Why? @ -None Did you discuss the management of the patient with other professionals (professionals i.e. , PA, [employer], lab, RT, psych nurse, manager social services, bee farmer, teacher, air control/anti air warfare officer, employment case manager)? Give summary @ -No Was smoking cessation discussed for >3mins.? @ -No Was critical care preformed (if so, how long)? @ -No Were there social determinants of health that impacted care today? How? (Homelessness, low income, unemployed, alcoholism, drug addiction, transportation, low edu. Level, literacy, decrease access to med. care, fci, rehab)? @ -No Was there de-escalation of care discussed even if they declined (Discuss DNR or withdrawal of care, Hospice)? DNR status @ -No What co-morbidities impacted this encounter? (DM, HTN, Smoking, COPD, CAD, Cancer, CVA, ARF, Chemo, Hep., AIDS, mental health diagnosis, sleep apnea, mor bid obesity)? @ -asthma, COPD, hypertension, seizure, migraine headaches, bipolar and schizophrenia. Was patient admitted / discharged? Hospital course, mention meds given and route, prescriptions, significant lab abnormalities, going to OR and other pertinent info. @ -Discharged Undiagnosed new problem with uncertain prognosis? @ -No Drug Therapy requiring intensive monitoring for toxicity (Heparin, Nitro, Insulin, Cardizem)? @ -No Were any procedures done? @ -No Diagnosis/symptom? @ -Surgical site reevaluation Acute, or Chronic, or Acute on Chronic? @ -Acute Uncomplicated (without systemic symptoms) or Complicated (systemic symptoms)? @ -Uncomplicated Side effects of treatment? @ -No Exacerbation, Progression, or Severe Exacerbation? @ -No Poses a threat to life or bodily function? How? (Chest pain, [place], [place], pneumonia, PE, COPD, DKA, ARF, appy, cholecystitis, CVA, Diverticulitis, Homicidal, Suicidal, threat to staff... and all critical care pts) @ -No Disposition Clinical Impression: Encounter for wound re-check Disposition: HOME SELF-CARE Condition: Good Instructions (If sedation given, give patient instructions): Musculoskeletal Pain (ED) Additional Instructions: Please follow-up with your primary care doctor this week for reevaluation and concerns regarding your vagus nerve stimulator. Return to the emergency room with any fevers, redness or drainage. Is patient prescribed a controlled substance at d/c from ED?: No Referrals: Elissa Perkins MD [Primary Care Provider] - 1-2 days Time of Disposition: 00:33
[2022-11-17 02:26] VITALS: BP 124/82; PULSE 83; RESP 16
== END 2022-11-17 01:15 | disposition home or self-care (01) ==
LOC: EC 21:59
DX: Z48.01 Encounter for change or removal of surgical wound dressing (principal); I10 Essential (primary) hypertension; J44.9 Chronic obstructive pulmonary disease, unspecified; G40.909 Epilepsy, unspecified, not intractable, without status epilepticus; E78.5 Hyperlipidemia, unspecified; F31.9 Bipolar disorder, unspecified; F20.9 Schizophrenia, unspecified; Z79.51 Long term (current) use of inhaled steroids; Z79.899 Other long term (current) drug therapy; Z88.0 Allergy status to penicillin; Z88.1 Allergy status to other antibiotic agents; Z88.8 Allergy status to other drugs, medicaments and biological substances; Z91.040 Latex allergy status; Z91.048 Other nonmedicinal substance allergy status
CPT/HCPCS: 99283

== ENCOUNTER 2022-11-21 16:25 | Inpatient (IN) | payer MEDICAID, OTHER ==
--- NOTE | 2022-11-21 16:43 | ED ---
General Adult HPI - General Chief complaint: Psychiatric Symptoms Stated complaint: Mental Health Time Seen by Provider: 11/21/22 16:35 Source: patient, EMS, RN notes reviewed Mode of arrival: EMS Limitations: no limitations - History of Present Illness Initial comments: Patient is a pleasant 32-year-old female presenting to the emergency department with concerns with depression and suicidal thoughts. Patient states she has been feeling this way for a while however thinks that worse today with disagreement with her significant other. Patient did abrade her left arm. Tetanus immunization is up-to-date, last was just 2 months ago. Patient occasionally hears voices and states today there telling her to harm herself. Patient has been taking her medication. Patient also sometimes sees some vague images. No new physical complaints except for left arm abrasions. No homicidal thoughts. - Related Data Home Medications Medication Instructions Recorded Confirmed norgestimate-ethinyl estradioL 1 tab PO DAILY 11/06/19 11/21/22 [Tri-Sprintec Tablet] Cenobamate [Xcopri] 100 mg PO DAILY 08/23/22 11/21/22 Fluticasone Propion/Salmeterol 1 puff INHALATION RT-BID 08/23/22 11/21/22 [Advair 100-50 Diskus] HYDROcodone/APAP 10-325MG [[place] 1 tab PO TID PRN 08/23/22 11/21/22 10-325] Ipratropium/Albuter 20-100Mcg 1 puff INHALATION RT-QID 08/23/22 11/21/22 [Combivent Respimat 20-100Mcg Inhaler] Rizatriptan Benzoate [Rizatriptan] 10 mg PO BID PRN 08/23/22 11/21/22 Valtoco 10mg/[place] Nasal 1 spray NASAL DAILY PRN 08/23/22 11/21/22 lisinopriL [Zestril] 10 mg PO DAILY 08/23/22 11/21/22 Atorvastatin [Lipitor] 20 mg PO HS 10/19/22 11/21/22 Liraglutide [Saxenda] 3 mg SQ DAILY 10/19/22 11/21/22 Lurasidone [Latuda] 80 mg PO DAILY 10/19/22 11/21/22 Meclizine [Antivert] 25 mg PO TID 10/19/22 11/21/22 Naproxen [Naprosyn] 500 mg PO BID 10/19/22 11/21/22 levETIRAcetam [Keppra] 1,000 mg PO Q12HR 10/19/22 11/21/22 Albuterol Sulfate [Ventolin HFA] 2 puff INHALATION RT-Q6H PRN 11/21/22 11/21/22 Ondansetron [Zofran] 4 mg PO Q8HR PRN 11/21/22 11/21/22 busPIRone HCL 15 mg PO BID 11/21/22 11/21/22 Allergies Allergy/AdvReac Type Severity Reaction Status Date / Time amoxicillin Allergy Rash/Hives Verified 11/21/22 17:05 divalproex sodium Allergy Unknown Verified 11/21/22 17:05 [From Depakote] gabapentin Allergy Unknown Verified 11/21/22 17:05 lamotrigine [From Lamictal] Allergy Unknown Verified 11/21/22 17:05 latex Allergy Unknown Verified 11/21/22 17:05 lithium [[place]] Allergy Unknown Verified 11/21/22 17:05 Penicillins Allergy Rash/Hives Verified 11/21/22 17:05 clindamycin AdvReac Unknown Verified 11/21/22 17:05 Review of Systems ROS Statement: Those systems with pertinent positive or pertinent negative responses have been documented in the HPI. ROS Other: All systems not noted in ROS Statement are negative. Constitutional: Denies: fever Eyes: Denies: eye pain ENT: Denies: ear pain Respiratory: Denies: cough, dyspnea Cardiovascular: Denies: chest pain Endocrine: Denies: fatigue Gastrointestinal: Denies: abdominal pain Genitourinary: Denies: urgency Musculoskeletal: Denies: back pain Skin: Reports: as per HPI Psychiatric: Reports: depression, suicidal thoughts Past Medical History Past Medical History: Asthma, COPD, Hyperlipidemia, Hypertension, Seizure Disorder, Sleep Apnea/CPAP/BIPAP Additional Past Medical History / Comment(s): NO CPAP USED. MIGRAINE headaches. LAST SEIZURE . HX ALCOHOL SYNDROME History of Any Multi-Drug Resistant Organisms: None Reported Past Surgical History: Orthopedic Surgery Additional Past Surgical History / Comment(s): GANGLION CYST REMOVED FROM LT WRIST. vagus nerve stimulator. BILAT KNEE SCOPES Past Anesthesia/Blood Transfusion Reactions: No Reported Reaction Past Psychological History: Bipolar, Schizophrenia Smoking Status: Never smoker - Past Family History Mother Family Medical History: No Reported History General Exam Limitations: no limitations General appearance: alert, in no apparent distress Head exam: Present: normocephalic Eye exam: Present: normal appearance Neck exam: Present: normal inspection Respiratory exam: Present: normal lung sounds bilaterally Cardiovascular Exam: Present: regular rate, normal rhythm GI/Abdominal exam: Present: soft. Absent: tenderness Extremities exam: Present: normal inspection Neurological exam: Present: alert Psychiatric exam: Present: depressed Skin exam: Present: abrasion (Superficial abrasions left arm) Course Vital Signs 11/21/22 16:30 Temperature 98 F Pulse Rate 104 H Respiratory 19 Rate Blood Pressure 144/104 O2 Sat by Pulse 98 Oximetry Medical Decision Making - Medical Decision Making Was pt. sent in by a medical professional or institution (, PA, MANAGER CASE MANAGEMENT, urgent care, hospital, or care home...) When possible be specific @ -Patient is brought in with police chief escort. Petition was done by officer Did you speak to anyone other than the patient for history (EMS, parent, family, police, friend...)? What history was obtained from this source @ -No Did you review nursing and triage notes (agree or disagree)? Why? @ -I reviewed and agree with nursing and triage notes Were old charts reviewed (outside hosp., previous admission, EMS record, old EKG, old radiological studies, urgent care reports/EKG's, care home records)? Report findings @ -No old charts were reviewed Differential Diagnosis (chest pain, altered mental status, abdominal pain women, abdominal pain men, vaginal bleeding, weakness, fever, dyspnea, syncope, headache, dizziness, GI bleed, back pain, seizure, CVA, palpatations, mental health)? @ -not applicable EKG interpreted by me (3pts min.). @ -As above X-rays interpreted by me (1pt min.). @ -None done CT interpreted by me (1pt min.). @ -None done U/S interpreted by me (1pt. min.). @ -None done What testing was considered but not performed or refused? (CT, X-rays, U/S, labs)? Why? @ -None What meds were considered but not given or refused? Why? @ -None Did you discuss the management of the patient with other professionals (professionals i.e. , PA, MANAGER CASE MANAGEMENT, lab, RT, psych nurse, medical social consultant, hat brim and crown laminating operator, teacher, mounted police officer, case repairer)? Give summary @ -Case was discussed with psychiatric nurse with plans for admission Was smoking cessation discussed for >3mins.? @ -No Was critical care preformed (if so, how long)? @ -No Were there social determinants of health that impacted care today? How? (Homelessness, low income, unemployed, alcoholism, drug addiction, transportation, low edu. Level, literacy, decrease access to med. care, group home, rehab)? @ -No Was there de-escalation of care discussed even if they declined (Discuss DNR or withdrawal of care, Hospice)? DNR status @ -No What co-morbidities impacted this encounter? (DM, HTN, Smoking, COPD, CAD, Cancer, CVA, ARF, Chemo, Hep., AIDS, mental health diagnosis, sleep apnea, morbid obesity)? @ -None Was patient admitted / discharged? Hospital course, mention meds given and route, prescriptions, significant lab abnormalities, going to OR and other pertinent info. @ -Patient will be admitted to psychiatric floor. Positive clinical certificate completed. Undiagnosed new problem with uncertain prognosis? @ -No Drug Therapy requiring intensive monitoring for toxicity (Heparin, Nitro, Insulin, Cardizem)? @ -No Were any procedures done? @ -No Diagnosis/symptom? @ -Depression, suicidal ideation Acute, or Chronic, or Acute on Chronic? @ -Acute, acute Uncomplicated (without systemic symptoms) or Complicated (systemic symptoms)? @ -default Side effects of treatment? @ -No Exacerbation, Progression, or Severe Exacerbation? @ -No Poses a threat to life or bodily function? How? (Chest pain, [place], [place], pneumonia, PE, COPD, DKA, ARF, appy, cholecystitis, CVA, Diverticulitis, Homicidal, Suicidal, threat to staff... and all critical care pts) @ -No - Lab Data Lab Results 11/21/22 Range/Units 17:12 Urine Opiates Screen Detected H (NotDetected) Ur Oxycodone Screen Not Detected (NotDetected) Urine Methadone Screen Not Detected (NotDetected) Ur Propoxyphene Screen Not Detected (NotDetected) Ur Barbiturates Screen Not Detected (NotDetected) U Tricyclic Antidepress Not Detected (NotDetected) Ur Phencyclidine Scrn Not Detected (NotDetected) Ur Amphetamines Screen Not Detected (NotDetected) U Methamphetamines Scrn Not Detected (NotDetected) U Benzodiazepines Scrn Detected H (NotDetected) Urine Cocaine Screen Not Detected (NotDetected) U Marijuana (THC) Screen Not Detected (NotDetected) Disposition Clinical Impression: Depression, Suicidal ideation Disposition: TRANSFER TO PSYCH HOSP/UNIT Is patient prescribed a controlled substance at d/c from ED?: No Referrals: Elissa Perkins MD [Primary Care Provider] - 1-2 days Time of Disposition: 20:01
[2022-11-21 17:55] LABS: Amphetamine Screen,Urine Not Detected (NotDetected); Barbiturate Screen,Urine Not Detected (NotDetected); Benzodiazepines Screen,Urine Detected (NotDetected); Cocaine Screen,Urine Not Detected (NotDetected); Methadone Screen, Urine Not Detected (NotDetected); Opiate Screen,Urine Detected (NotDetected); Oxycodone Screen, Urine Not Detected (NotDetected); Phencyclidine Screen,Urine Not Detected (NotDetected); Tricyclic Antidepressant,Urine Not Detected (NotDetected); Urn Cannabinoid Scrn Not Detected (NotDetected)
[2022-11-21] MEDS ORDERED: MAGNESIUM HYDROXIDE 2,400 MG/10 ML CUP PO PRN (21:12)
[2022-11-21] MEDS ORDERED: MAG HYDROX/AL HYDROX/SIMETH 30 ML CUP PO PRN (21:12)
[2022-11-21] MEDS ORDERED: ACETAMINOPHEN TAB 325 MG TAB PO PRN (21:12)
[2022-11-21] MEDS ORDERED: ONDANSETRON 4 MG TAB PO PRN (21:15)
[2022-11-21] MEDS ORDERED: [UNRECOGNIZED DRUG - OTHER] EA NOSTRIL PRN (21:15)
[2022-11-21] MEDS ORDERED: LORazepam 2 MG/ML INJ IM PRN (21:17)
[2022-11-21] MEDS ORDERED: SUMAtriptan succinate 50 MG TAB PO PRN (22:00)
[2022-11-21] MEDS ORDERED: ALBUTEROL HFA INHALER INHALATION PRN (22:00)
[2022-11-21] MEDS: HYDROcodone/APAP 10-325MG 1 EACH TAB PO PRN (22:09)
[2022-11-21] MEDS: LORazepam 1 MG TAB PO PRN (22:10)
[2022-11-21] MEDS: MECLIZINE 25 MG TAB PO SCH (22:10)
[2022-11-21] MEDS: levETIRAcetam 500 MG TAB PO SCH (22:18)
[2022-11-22 00:09] VITALS: RESP 16
[2022-11-22] MEDS: LORazepam 1 MG TAB PO PRN ×2 (01:20→17:05)
--- NOTE | 2022-11-22 03:22 | P.PN ---
Progress Note - Text Progress Note Date: 11/22/22 patient refused to see the medical doctor
[2022-11-22] MEDS ORDERED: IPRATROPIUM-ALBUTEROL 3 ML NEB INHALATION SCH (08:00)
[2022-11-22] MEDS: busPIRone HCl 5 MG TAB PO SCH ×2 (08:40→20:28)
[2022-11-22] MEDS: NAPROXEN 250 MG TAB PO SCH ×2 (08:41→20:27)
[2022-11-22] MEDS: levETIRAcetam 500 MG TAB PO SCH ×2 (08:41→20:27)
[2022-11-22] MEDS: lisinopriL 10 MG TAB PO SCH (08:42)
[2022-11-22] MEDS: MECLIZINE 25 MG TAB PO SCH ×3 (08:44→20:26)
[2022-11-22] MEDS: HYDROcodone/APAP 10-325MG 1 EACH TAB PO PRN ×2 (08:48→20:27)
[2022-11-22] MEDS: NORGESTIMATE ETHINYL ESTRADIOL PO SCH (08:51)
[2022-11-22] MEDS: CENOBAMATE 100 MG PO SCH (08:52)
[2022-11-22] MEDS ORDERED: levETIRAcetam 500 MG TAB PO SCH (09:00)
[2022-11-22] MEDS ORDERED: LURASIDONE 80 MG TAB PO SCH (09:00)
[2022-11-22] MEDS: SYMBICORT 80-4.5 MCG INHALER INHALATION SCH ×2 (10:36→20:29)
[2022-11-22 11:12] LABS: Basophils % (A) 0 %; Eosinophils # (A) 0.1 k/uL (0-0.7); Eosinophils % (A) 2 %; HCT 38.3 % (34.0-46.0); HGB 12.3 gm/dL (11.4-16.0); Lymphocytes # (A) 1.5 k/uL (1.0-4.8); Lymphocytes % (A) 28 %; MCH 27.7 pg (25.0-35.0); MCV 86.6 fL (80.0-100.0); Mean Platelet Volume 8.3; Monocytes # (A) 0.4 k/uL (0-1.0); Monocytes % (A) 8 %; Neutrophils # (A) 3.2 k/uL (1.3-7.7); Neutrophils % (A) 60 %; Platelet Count 198 k/uL (150-450); RBC 4.43 m/uL (3.80-5.40); RDW 14.2 % (11.5-15.5); WBC 5.4 k/uL (3.8-10.6)
[2022-11-22 11:46] LABS: ALT 23 U/L (4-34); AST 20 U/L (14-36); African American GFR (CKD) >90 (>60 ml/min/1.73 sqM); Albumin 2.8 g/dL (3.5-5.0); Alkaline Phosphatase 53 U/L (38-126); Anion Gap 8 mmol/L; Blood Urea Nitrogen 14 mg/dL (7-17); Calcium 8.3 mg/dL (8.4-10.2); Carbon Dioxide 24 mmol/L (22-30); Chloride 103 mmol/L (98-107); Glucose 86 mg/dL (74-99); Non-African American GFR(CKD) 80 (>60 ml/min/1.73 sqM); Potassium 4.3 mmol/L (3.5-5.1); Sodium 135 mmol/L (137-145); Total Bilirubin 0.4 mg/dL (0.2-1.3); Total Protein 5.2 g/dL (6.3-8.2)
[2022-11-22] MEDS ORDERED: ALBUTEROL HFA INHALER INHALATION SCH (12:00)
[2022-11-22] MEDS: TIOTROPIUM 2.5 MCG INHALER INHALATION SCH (13:31)
[2022-11-22] MEDS: ALBUTEROL INHALER 60 PUFF/8 GM INHALER (MHU) INHALATION SCH ×2 (17:04→20:29)
--- NOTE | 2022-11-22 17:34 | P.MDCNMH ---
<Juanpablo Barbour - Last Filed: 11/22/22 17:04> History of Present Illness H&P Date: 11/22/22 History of Presenting Illness: Patient is a pleasant 32-year-old female with a past medical history of al cohol syndrome, seizure disorder with VNS placed 1 month ago, COPD, hypertension, [id number]-[id number] diabetes mellitus, morbid obesity, bipolar disorder, schizophrenia, and history of previous IVDA states clean 10 years. Patient reports since placement of her vagus nerve stimulator one month ago she has had 6 documented withdrawal seizures with last reported seizure being 2 days prior to admission to mental health unit. Patient is currently admitted admitted to inpatient mental health unit under psychiatric team secondary to reports of suicidal ideations. Patient reports feeling suicidal and she also states that she is hearing voices. Patient reports she hears voices in her head telling her to kill herself but then she hears voices from her father encouraging her and trying to talk her through it and telling her that she can do it. Patient currently denies having any visual or tactile hallucinations. She does report feeling suicidal but denies having a current plan. Patient denies homicidal ideations. She denies having any other complaints at this time including lightheadedness, dizziness, chest pain, palpitations, shortness of breath, abdominal pain, nausea, vomiting, difficulties with word changes in her urinary or bowel function, or experiencing any numbness/tingling/weakness in her extremities. Review of systems: Pertinent positives and negatives as discussed in HPI, a complete review of systems was performed and all other systems are negative. Physical exam: Vital signs reviewed and stable. General: Nontoxic, no distress and appears stated age. Morbidly obese. Derm: Skin warm and dry, normal coloration for ethnicity. Head: Atraumatic, normocephalic and symmetric. Eyes: EOMs intact, no lid lag, and anicteric sclera Mouth: no lip lesions, mucus membranes moist Cardiovascular: regular rate and rhythm with normal S1S2, no murmur, positive posterior tibial pulses bilaterally, and cap refill < 2 seconds. Lungs: Respirations even, regular, and unlabored on room air. Lungs CTA bilaterally, no rhonchi, no rales, no wheezing, and no accessory muscle usage. Abdominal: soft, nontender to palpation, no guarding, no appreciable organomega ly Ext: ROM intact. No gross muscle atrophy, no edema, no contractures Neuro: Speech clear, face symmetrical and CN II-XII grossly intact with no noted focal neuro deficits Psych: Alert and oriented to person, place, time, and situation. Appropriate and pleasant affect. Reports having auditory hallucinations. Assessment and Plan of Care: Reviewed labs in chart. Urine hCG negative for . CBC and CMP reviewed showing no acute abnormalities. Urine drug screen positive for opiates and benzodiazepines. Seizure disorder status post VNS placement with reports of recent breakthrough seizures History of alcohol syndrome -Patient reports since placement of her vagus nerve stimulator one month ago she has had 6 documented withdrawal seizures with last reported seizure being 2 days prior to admission to mental health unit. -Patient placed on seizure precautions and to continue daily medication regimen with Keppra 1000 mg every 12 hours -Valtaco 10 mg nasal spray to be administered intranasally as needed for any breakthrough seizures. Hypertension -Monitor vital signs and continue daily medication regimen with lisinopril 10 mg daily. Hyperlipidemia -Continue daily medication regimen with atorvastatin 20 mg nightly. Morbid obesity with BMI of 51.8 kg/m -Recommend out patient structured weight management program. Bipolar disorder Schizophrenia Suicidal ideations Provide safe and supportive care with suicide precautions in place. Management per primary admitting psychiatric team. Thank you for allowing us to participate in the care of this pleasant patient. Do not hesitate to contact us with questions. Someone can be reached from the [facility] hospitalist group all hours of the day at [phone] or via [employer]. Past Medical History Past Medical History: Asthma, COPD, Hyperlipidemia, Hypertension, Seizure Disorder, Sleep Apnea/CPAP/BIPAP Additional Past Medical History / Comment(s): NO CPAP USED. MIGRAINE headaches. LAST SEIZURE . HX ALCOHOL SYNDROME History of Any Multi-Drug Resistant Organisms: None Reported Past Surgical History: Orthopedic Surgery Additional Past Surgical History / Comment(s): GANGLION CYST REMOVED FROM LT WRIST. vagus nerve stimulator. BILAT KNEE SCOPES Past Anesthesia/Blood Transfusion Reactions: No Reported Reaction Past Psychological History: Bipolar, Schizophrenia Smoking Status: Never smoker Past Alcohol Use History: None Reported Past Drug Use History: None Reported Additional Drug Use History / Comment(s): DENIES MARIJUANA USE - Past Family History Mother Family Medical History: No Reported History Medications and Allergies Home Medications Medication Instructions Recorded Confirmed Type norgestimate-ethinyl estradioL 1 tab PO DAILY 11/06/19 11/21/22 History [Tri-Sprintec Tablet] Cenobamate [Xcopri] 100 mg PO DAILY 08/23/22 11/21/22 History Fluticasone Propion/Salmeterol 1 puff INHALATION RT-BID 08/23/22 11/21/22 History [Advair 100-50 Diskus] HYDROcodone/APAP 10-325MG [[place] 1 tab PO TID PRN 08/23/22 11/21/22 History 10-325] Ipratropium/Albuter 20-100Mcg 1 puff INHALATION RT-QID 08/23/22 11/21/22 History [Combivent Respimat 20-100Mcg Inhaler] Rizatriptan Benzoate [Rizatriptan] 10 mg PO BID PRN 08/23/22 11/21/22 History Valtoco 10mg/[place] Nasal 1 spray NASAL DAILY PRN 08/23/22 11/21/22 History lisinopriL [Zestril] 10 mg PO DAILY 08/23/22 11/21/22 History Atorvastatin [Lipitor] 20 mg PO HS 10/19/22 11/21/22 History Liraglutide [Saxenda] 3 mg SQ DAILY 10/19/22 11/21/22 History Lurasidone [Latuda] 80 mg PO DAILY 10/19/22 11/21/22 History Meclizine [Antivert] 25 mg PO TID 10/19/22 11/21/22 History Naproxen [Naprosyn] 500 mg PO BID 10/19/22 11/21/22 History levETIRAcetam [Keppra] 1,000 mg PO Q12HR 10/19/22 11/21/22 History Albuterol Sulfate [Ventolin HFA] 2 puff INHALATION RT-Q6H PRN 11/21/22 11/21/22 History Ondansetron [Zofran] 4 mg PO Q8HR PRN 11/21/22 11/21/22 History busPIRone HCL 15 mg PO BID 11/21/22 11/21/22 History Allergies Allergy/AdvReac Type Severity Reaction Status Date / Time amoxicillin Allergy Rash/Hives Verified 11/21/22 17:05 divalproex sodium Allergy Unknown Verified 11/21/22 17:05 [From Depakote] gabapentin Allergy Unknown Verified 11/21/22 17:05 lamotrigine [From Lamictal] Allergy Unknown Verified 11/21/22 17:05 latex Allergy Unknown Verified 11/21/22 17:05 lithium [[place]] Allergy Unknown Verified 11/21/22 17:05 Penicillins Allergy Rash/Hives Verified 11/21/22 17:05 clindamycin AdvReac Unknown Verified 11/21/22 17:05 Physical Exam Vitals: Vital Signs Temp Pulse Pulse Resp BP BP Pulse Ox 11/22/22 00:09 97.9 F 113 H 16 139/66 99 11/21/22 21:20 98.4 F 96 18 134/77 98 11/21/22 16:30 98 F 104 H 19 144/104 98 Intake and Output 11/22/22 11/22/22 11/22/22 06:59 14:59 22:59 Other: Weight 150 kg Cranial Nerve Examination - Cranial Nerves Cranial Nerve II- Optic: Intact Cranial Nerve III- Oculomotor: Intact Cranial Nerve IV- Trochlear: Intact Cranial Nerve V- Trigeminal: Intact Cranial Nerve - Abducens: Intact Cranial Nerve VII- Facial: Intact Cranial Nerve VIII- Auditory: Intact Cranial Nerve IX- Glossopharyngeal: Intact Cranial Nerve X- Vagus: Intact Cranial Nerve XI- Accessory: Intact Cranial Nerve XII- Hypoglossal: Intact Results CBC & Chem 7: 11/22/22 10:28 11/22/22 10:28 Labs: Abnormal Lab Results - Last 24 Hours (Table) 11/21/22 11/22/22 Range/Units 17:12 10:28 Sodium 135 L (137-145) mmol/L Calcium 8.3 L (8.4-10.2) mg/dL Total Protein 5.2 L (6.3-8.2) g/dL Albumin 2.8 L (3.5-5.0) g/dL Urine Opiates Screen Detected H (NotDetected) U Benzodiazepines Scrn Detected H (NotDetected) <Monse Lacey - Last Filed: 11/23/22 16:52> History of Present Illness I reviewed the documentation as provided by the NATALI above, who is the original author of this note. I agree with the documented assessment and plan, with the following changes: none Physical Exam Vitals: Vital Signs Temp Pulse Resp BP BP Pulse Ox 11/23/22 16:27 87 125/66 11/23/22 06:47 97.7 F 71 16 102/53 97 Results CBC & Chem 7: 11/22/22 10:28 11/22/22 10:28 Labs: Abnormal Lab Results - Last 24 Hours (Table) 11/22/22 11/23/22 Range/Units 10:28 11:16 HDL Cholesterol 36.00 L (40.00-60.00) mg/dL Urine Appearance Cloudy H (Clear) Urine Protein Trace H (Negative) Ur Leukocyte Esterase Small H (Negative) Ur Squamous Epith Cells 11 H (0-4) /hpf Urine Bacteria Rare H (None) /hpf Urine Mucus Few H (None) /hpf
[2022-11-22] MEDS: ATORVASTATIN 20 MG TAB PO SCH (20:26)
[2022-11-22] MEDS ORDERED: SERTRALINE 25 MG TAB PO SCH (21:00)
[2022-11-22] MEDS ORDERED: PRAZOSIN 1 MG CAP PO SCH (21:00)
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
[2022-11-22 23:35] LABS: Chol/HDL Ratio 3.17 Ratio; LDL Cholesterol,Calculated 51.8 mg/dL (0.0-131.0)
[2022-11-23] MEDS ORDERED: LURASIDONE 80 MG TAB PO SCH (09:00)
[2022-11-23] MEDS ORDERED: LURASIDONE 20 MG TAB PO SCH (09:00)
[2022-11-23] MEDS: busPIRone HCl 5 MG TAB PO SCH ×2 (10:33→21:54)
[2022-11-23] MEDS: lisinopriL 10 MG TAB PO SCH (10:33)
[2022-11-23] MEDS: levETIRAcetam 500 MG TAB PO SCH ×2 (10:33→21:55)
[2022-11-23] MEDS: MECLIZINE 25 MG TAB PO SCH ×3 (10:34→21:54)
[2022-11-23] MEDS: NAPROXEN 250 MG TAB PO SCH ×2 (10:34→21:55)
[2022-11-23] MEDS: NORGESTIMATE ETHINYL ESTRADIOL PO SCH (10:36)
[2022-11-23] MEDS: CENOBAMATE 100 MG PO SCH (10:36)
[2022-11-23] MEDS: SYMBICORT 80-4.5 MCG INHALER INHALATION SCH ×2 (10:37→21:56)
[2022-11-23] MEDS: TIOTROPIUM 2.5 MCG INHALER INHALATION SCH (10:37)
[2022-11-23] MEDS: ALBUTEROL INHALER 60 PUFF/8 GM INHALER (MHU) INHALATION SCH ×4 (10:37→21:56)
[2022-11-23] MEDS: HYDROcodone/APAP 10-325MG 1 EACH TAB PO PRN ×2 (10:38→22:00)
[2022-11-23 12:16] LABS: Appearance,Urine Cloudy (Clear); Bacteria,Urine Rare /hpf; Bilirubin,Urine Negative (Negative); Blood,Urine Negative (Negative); Color,Urine Yellow; Glucose,Urine (UA) Negative (Negative); Hyaline Casts,Urine 1 /lpf (0-2); Ketones,Urine Negative (Negative); Leukocyte Esterase,Urine Small (Negative); Mucus,Urine Few /hpf; Nitrite,Urine Negative (Negative); Protein,Urine Trace (Negative); RBC,Urine 1 /hpf (0-5); Specific Gravity,Urine 1.028 (1.001-1.035); Squamous Epithelial Cell,Urine 11 /hpf (0-4); WBC,Urine 3 /hpf (0-5)
--- NOTE | 2022-11-23 13:48 | P.PN ---
Progress Note - Text Progress Note Date: 11/23/22 Interval History: Patient was seen lying in bed after lunch and was directable and agreeable to speak with medical underwriter in the office. Patient claims that she is feeling depressed suicidal and irritable before coming into the hospital. She is also mentioning that she's been hearing voices. Patient claims that she is still hearing voices at this time however they have gradually improved since yesterday. She claims that she is still feeling depressed. She claims that the latuda has not been helping her and wanted to have it switched. she was ok with taking abilify at this time. Patient claims that she had a difficult time with sleep last night due to the nightmares that she was having. Claims that her appetite is fair at this time. At this time patient denies any homical ideations, intent or plan. Patient denies any auditory, visual hallucinations and denies any paranoia or delusions. Patient denies any side effects from the medications and has been compliant with meds. Mental Status Exam: General Appearance: Patient is obese, has tattoos on fingers. Patient appears to have improving hygiene and grooming. Behavior: Patient is seated without any agitated behavior. Evasive at times Speech: Patient's speech is fluent and non-pressured. [place] Mood/Affect: Patient reports their mood is depressed and anxious, affect is congruent and constricted. Suicidality/Homicidality: Patient denies having any homicidal ideation intent or plan. She endorses suicidal ideation without a specific plan. Perceptions: Patient denies any visual hallucinations, but reports occasional auditory hallucinations which are improving. Though content/process: There is no evidence of any delusional thought content and thought process is linear and goal-directed. focused on her sx. Memory and concentration: AOX3, grossly intact for the purposes of this session Judgment and insight: Poor, improving mildly IMPRESSIONS: Schizoaffective disorder PTSD Opioid use disorder, in remission Methamphetamine use disorder, in sustained remission Cluster B traits Plan: -Patient continues to meet criteria for inpatient psychiatric admission for symptom stabilization and safety. Patient has signed adult voluntary form and medication consent and was placed in patient's chart. -Medications: increase Zoloft 50 mg daily at bedtime for depression/anxiety. Continue Buspar 15 mg BID, d/c Latuda due to patient request of ineffectiveness and replace with abilify 5 mg daily for mood stabilization, increase prazosin 3 mg QHS for nightmares -When necessary Ativan and Haldol for agitation/aggression. -NRT - not needed since she denies tobacco use. -SW on board for discharge planning. Encouraged the patient to participate in milieu. likely discharge back home in 2-3 days.
[2022-11-23] MEDS: ARIPiprazole 5 MG TAB PO SCH (14:44)
[2022-11-23] MEDS: LORazepam 1 MG TAB PO PRN ×2 (16:25→22:00)
[2022-11-23] MEDS: SERTRALINE 50 MG TAB PO SCH (21:54)
[2022-11-23] MEDS: PRAZOSIN 1 MG CAP PO SCH (21:55)
[2022-11-23] MEDS: ATORVASTATIN 20 MG TAB PO SCH (21:55)
[2022-11-24] MEDS: LORazepam 1 MG TAB PO PRN ×2 (05:46→22:46)
[2022-11-24 06:45] VITALS: TEMP 98.1
[2022-11-24 09:51] VITALS: BP 115/71; PULSE 94
[2022-11-24] MEDS: TIOTROPIUM 2.5 MCG INHALER INHALATION SCH (09:51)
[2022-11-24] MEDS: SYMBICORT 80-4.5 MCG INHALER INHALATION SCH ×2 (09:51→22:03)
[2022-11-24] MEDS: ALBUTEROL INHALER 60 PUFF/8 GM INHALER (MHU) INHALATION SCH ×4 (09:52→22:02)
[2022-11-24] MEDS: NAPROXEN 250 MG TAB PO SCH ×2 (09:53→22:00)
[2022-11-24] MEDS: MECLIZINE 25 MG TAB PO SCH ×3 (09:53→22:00)
[2022-11-24] MEDS: ARIPiprazole 5 MG TAB PO SCH (09:53)
[2022-11-24] MEDS: busPIRone HCl 5 MG TAB PO SCH ×2 (09:53→22:00)
[2022-11-24] MEDS: lisinopriL 10 MG TAB PO SCH (09:53)
[2022-11-24] MEDS: levETIRAcetam 500 MG TAB PO SCH ×2 (09:53→22:01)
[2022-11-24] MEDS: NORGESTIMATE ETHINYL ESTRADIOL PO SCH (09:57)
[2022-11-24] MEDS: CENOBAMATE 100 MG PO SCH (09:57)
--- NOTE | 2022-11-24 10:11 | P.PN ---
Progress Note - Text Progress Note Date: 11/24/22 Interval History: Patient was seen lying in bed this morning and was directable and agreeable to speak with continuity writer in the office. Patient claims that she is doing better in terms of her mood today. She is denying any anxiety. States that she is still having nightmares every night however they have decreased in severity. Claims that the Abilify has been helping her stabilize her mood. She claims that she is having better sleep at nighttime. She states that she is going to groups however is fairly vague about what she is learning. Claims that her appetite is fair at this time. At this time patient denies any homical ideations, intent or plan. Patient denies any auditory, visual hallucinations and denies any paranoia or delusions. Patient denies any side effects from the medications and has been compliant with meds. Mental Status Exam: General Appearance: Patient is obese, has tattoos on fingers. Patient appears to have improving hygiene and grooming. Behavior: Patient is seated without any agitated behavior. More cooperative today. Speech: Patient's speech is fluent and non-pressured. [place] Mood/Affect: Patient reports their mood is improving mildly, affect is congruent and constricted. Suicidality/Homicidality: Patient denies having any homicidal ideation intent or plan. She denies any suicidal ideation intent or plan. Perceptions: Patient denies any visual hallucinations, but reports occasional auditory hallucinations which are improving. Though content/process: There is no evidence of any delusional thought content and thought process is linear and goal-directed. Memory and concentration: AOX3, grossly intact for the purposes of this session Judgment and insight: improving mildly IMPRESSIONS: Schizoaffective disorder PTSD Opioid use disorder, in remission Methamphetamine use disorder, in sustained remission Cluster B traits Plan: -Patient continues to meet criteria for inpatient psychiatric admission for symptom stabilization and safety. Patient has signed adult voluntary form and medication consent and was placed in patient's chart. -Medications: Zoloft 50 mg daily at bedtime for depression/anxiety. Continue Buspar 15 mg BID, abilify 5 mg daily for mood stabilization, prazosin 3 mg QHS for nightmares -When necessary Ativan and Haldol for agitation/aggression. -NRT - not needed since she denies tobacco use. -SW on board for discharge planning. Encouraged the patient to participate in milieu. likely discharge back home tomorrow vs . SW to prepare for discharge and safety plan with pts .
[2022-11-24 12:44] VITALS: BMI 51.7
[2022-11-24] MEDS: PRAZOSIN 1 MG CAP PO SCH (22:00)
[2022-11-24] MEDS: SERTRALINE 50 MG TAB PO SCH (22:00)
[2022-11-24] MEDS: ATORVASTATIN 20 MG TAB PO SCH (22:00)
[2022-11-24] MEDS: HYDROcodone/APAP 10-325MG 1 EACH TAB PO PRN (22:04)
[2022-11-25] MEDS: LORazepam 1 MG TAB PO PRN ×2 (03:36→11:48)
[2022-11-25] MEDS: NAPROXEN 250 MG TAB PO SCH (10:27)
[2022-11-25] MEDS: ARIPiprazole 5 MG TAB PO SCH (10:27)
[2022-11-25] MEDS: busPIRone HCl 5 MG TAB PO SCH (10:28)
[2022-11-25] MEDS: levETIRAcetam 500 MG TAB PO SCH (10:28)
[2022-11-25] MEDS: lisinopriL 10 MG TAB PO SCH (10:28)
[2022-11-25] MEDS: HYDROcodone/APAP 10-325MG 1 EACH TAB PO PRN (10:29)
[2022-11-25] MEDS: MECLIZINE 25 MG TAB PO SCH (10:29)
[2022-11-25] MEDS: ALBUTEROL INHALER 60 PUFF/8 GM INHALER (MHU) INHALATION SCH (10:31)
[2022-11-25] MEDS: TIOTROPIUM 2.5 MCG INHALER INHALATION SCH (10:32)
[2022-11-25] MEDS: SYMBICORT 80-4.5 MCG INHALER INHALATION SCH (10:32)
[2022-11-25] MEDS: CENOBAMATE 100 MG PO SCH (10:33)
[2022-11-25] MEDS: NORGESTIMATE ETHINYL ESTRADIOL PO SCH (10:34)
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
== END 2022-11-25 12:38 | disposition home or self-care (01) | DRG 750 ==
LOC: EC 16:25 → 3MHU 20:40
PROVIDERS: ADMIT Psychiatry & Neurology Psychiatry; ATTEND Psychiatry & Neurology Psychiatry
DX: F25.9 Schizoaffective disorder, unspecified (principal); S61.519A Laceration without foreign body of unspecified wrist, initial encounter; R45.850 Homicidal ideations; R45.851 Suicidal ideations; F15.11 Other stimulant abuse, in remission; F31.9 Bipolar disorder, unspecified; E66.01 Morbid (severe) obesity due to excess calories; F19.20 Other psychoactive substance dependence, uncomplicated; F43.10 Post-traumatic stress disorder, unspecified; F60.89 Other specific personality disorders; F84.0 Autistic disorder; J44.9 Chronic obstructive pulmonary disease, unspecified; G40.909 Epilepsy, unspecified, not intractable, without status epilepticus; I10 Essential (primary) hypertension; Z68.43 Body mass index [BMI] 50.0-59.9, adult; F11.11 Opioid abuse, in remission; E78.5 Hyperlipidemia, unspecified; X78.9XXA Intentional self-harm by unspecified sharp object, initial encounter; Z79.899 Other long term (current) drug therapy; Z91.410 Personal history of adult physical and sexual abuse; Z91.411 Personal history of adult psychological abuse; Z91.51 Personal history of suicidal behavior; Z88.1 Allergy status to other antibiotic agents; Z88.8 Allergy status to other drugs, medicaments and biological substances; Z91.040 Latex allergy status; Z88.0 Allergy status to penicillin; Z53.29 Procedure and treatment not carried out because of patient's decision for other reasons
CPT/HCPCS: 80053; 80061; 80306; 81001; 81025; 82075; 83036; 85025; 87635; 99285

== ENCOUNTER 2023-01-08 21:27 | Emergency (ER) | payer OTHER ==
[2023-01-08 22:07] VITALS: BP 125/85; PULSE 80; RESP 16; TEMP 97.8
[2023-01-08] MEDS ORDERED: ONDANSETRON 4 MG/2 ML VIAL IVP STA (23:30)
--- NOTE | 2023-01-08 23:30 | ED ---
General Adult HPI - General Chief complaint: Abdominal Pain Stated complaint: V/D, Abd Pain Time Seen by Provider: 01/08/23 23:09 Source: patient - History of Present Illness Initial comments: Dictation was produced using [employer] dictation software. please excuse any grammatical, word or spelling errors. Chief Complaint: 32-year-old female presents emergency Department with 2 days of abdominal pain History of Present Illness: Patient 32-year-old female she has past medical history of asthma and COPD. Patient states that for the last couple days she has been having abdominal pain. She took a home cold test was negative. Patient denies any diarrhea. States that the pain is upper abdomen. She has had nondistended bloody vomiting and diarrhea. Denies any constitutional symp toms. Nonvesicular contacts The ROS documented in this emergency department record has been reviewed and confirmed by me. Those systems with pertinent positive or negative responses have been documented in the HPI. All other systems are other negative and/or noncontributory. - Related Data Home Medications Medication Instructions Recorded Confirmed norgestimate-ethinyl estradioL 1 tab PO DAILY 11/06/19 11/21/22 [Tri-Sprintec Tablet] Cenobamate [Xcopri] 100 mg PO DAILY 08/23/22 11/21/22 HYDROcodone/APAP 10-325MG [[place] 1 tab PO TID PRN 08/23/22 11/21/22 10-325] Rizatriptan Benzoate [Rizatriptan] 10 mg PO BID PRN 08/23/22 11/21/22 Valtoco 10mg/[place] Nasal 1 spray NASAL DAILY PRN 08/23/22 11/21/22 lisinopriL [Zestril] 10 mg PO DAILY 08/23/22 11/21/22 Atorvastatin [Lipitor] 20 mg PO HS 10/19/22 11/21/22 Liraglutide [Saxenda] 3 mg SQ DAILY 10/19/22 11/21/22 Meclizine [Antivert] 25 mg PO TID 10/19/22 11/21/22 Naproxen [Naprosyn] 500 mg PO BID 10/19/22 11/21/22 levETIRAcetam [Keppra] 1,000 mg PO Q12HR 10/19/22 11/21/22 Previous Rx's Medication Instructions Recorded ARIPiprazole [Abilify] 5 mg PO DAILY 30 Days #30 tab 11/25/22 Acetaminophen Tab [Tylenol] 650 mg PO Q4HR PRN tab 11/25/22 Albuterol Sulfate [Ventolin HFA] 2 puff INHALATION RT-Q6H PRN 30 11/25/22 Days #1 each Fluticasone Propion/Salmeterol 1 puff INHALATION RT-BID 30 Days 11/25/22 [Advair 100-50 Diskus] #1 each Ipratropium/Albuter 20-100Mcg 1 puff INHALATION RT-QID 30 Days 11/25/22 [Combivent Respimat 20-100Mcg #1 each Inhaler] Prazosin [Minipress] 3 mg PO HS 30 Days #90 cap 11/25/22 Sertraline [Zoloft] 50 mg PO HS 30 Days #30 tab 11/25/22 busPIRone HCL 15 mg PO BID 30 Days #60 tab 11/25/22 Allergies Allergy/AdvReac Type Severity Reaction Status Date / Time amoxicillin Allergy Rash/Hives Verified 01/08/23 22:07 divalproex sodium Allergy Unknown Verified 01/08/23 22:07 [From Depakote] gabapentin Allergy Unknown Verified 01/08/23 22:07 lamotrigine [From Lamictal] Allergy Unknown Verified 01/08/23 22:07 latex Allergy Unknown Verified 01/08/23 22:07 lithium [[place]] Allergy Unknown Verified 01/08/23 22:07 Penicillins Allergy Rash/Hives Verified 01/08/23 22:07 clindamycin AdvReac Unknown Verified 01/08/23 22:07 Review of Systems ROS Statement: Those systems with pertinent positive or pertinent negative responses have been documented in the HPI. ROS Other: All systems not noted in ROS Statement are negative. Past Medical History Past Medical History: Asthma, COPD, Hyperlipidemia, Hypertension, Seizure Disorder, Sleep Apnea/CPAP/BIPAP Additional Past Medical History / Comment(s): NO CPAP USED. MIGRAINE headaches. LAST SEIZURE . HX ALCOHOL SYNDROME History of Any Multi-Drug Resistant Organisms: None Reported Past Surgical History: Orthopedic Surgery Additional Past Surgical History / Comment(s): GANGLION CYST REMOVED FROM LT WRIST. vagus nerve stimulator. BILAT KNEE SCOPES Past Anesthesia/Blood Transfusion Reactions: No Reported Reaction Past Psychological History: Bipolar, Schizophrenia Smoking Status: Never smoker Past Alcohol Use History: None Reported Past Drug Use History: None Reported - Past Family History Mother Family Medical History: No Reported History General Exam - General Exam Comments Initial Comments: PHYSICAL EXAM: General Impression: Alert and oriented x3, not in acute distress HEENT: Normocephalic atraumatic, extra-ocular movements intact, pupils equal and reactive to light bilaterally, mucous membranes moist. Cardiovascular: Heart regular rate and rhythm Chest: Able to complete full sentences, no retractions, no tachypnea Abdomen: abdomen soft, mild tenderness to palpation to the epigastrium, non- distended, no organomegaly Musculoskeletal: Pulses present and equal in all extremities, no peripheral edema Motor: no focal deficits noted Neurological: CN II-XII grossly intact, no focal motor or sensory deficits noted Skin: Intact with no visualized rashes Psych: Normal affect and mood Course Vital Signs 01/08/23 22:02 Temperature 97.8 F Pulse Rate 80 Respiratory 16 Rate Blood Pressure 125/85 O2 Sat by Pulse 100 Oximetry Medical Decision Making - Medical Decision Making Was pt. sent in by a medical professional or institution (, PA, LENS MAKER, urgent care, hospital, or alf...) When possible be specific @ -No Did you speak to anyone other than the patient for history (EMS, parent, family, police, friend...)? What history was obtained from this source @ -No Did you review nursing and triage notes (agree or disagree)? Why? @ -I reviewed and agree with nursing and triage notes Were old charts reviewed (outside hosp., previous admission, EMS record, old EKG, old radiological studies, urgent care reports/EKG's, alf records)? Report findings @ -No old charts were reviewed Differential Diagnosis (chest pain, altered mental status, abdominal pain women, abdominal pain men, vaginal bleeding, musculoskeletal, weakness, fever, dyspnea, syncope, headache, dizziness, GI bleed, back pain, seizure, CVA, palpatations, mental health)? @ -Differential Abdominal Pain Women: Appendicitis, Cholecystitis, diverticulosis, ischemic bowel, pancreatitis, hepatitis, UTI, gastroenteritis, AAA, incarcerated hernia, bowel obstruction, constipation, inflammatory bowel, hepatitis, peptic ulcer disease, splenic infarction, perforated viscus, vulvitis, ovarian torsion, PID, kidney stone, placenta abruption, this is not meant to be an all-inclusive list EKG interpreted by me (3pts min.). @ -None done X-rays interpreted by me (1pt min.). @ -Abdominal x-ray unremarkable CT interpreted by me (1pt min.). @ -None done U/S interpreted by me (1pt. min.). @ -None done What testing was considered but not performed or refused? (CT, X-rays, U/S, labs)? Why? @ -None What meds were considered but not given or refused? Why? @ -None Did you discuss the management of the patient with other professionals ( professionals i.e. , PA, LENS MAKER, lab, RT, psych nurse, social service agency director, export sales manager, teacher, electoral officer, case management director)? Give summary @ -No Was smoking cessation discussed for >3mins.? @ -No Was critical care preformed (if so, how long)? @ -No Were there social determinants of health that impacted care today? How? (Homelessness, low income, unemployed, alcoholism, drug addiction, transpo rtation, low edu. Level, literacy, decrease access to med. care, assisted, rehab)? @ -No Was there de-escalation of care discussed even if they declined (Discuss DNR or withdrawal of care, Hospice)? DNR status @ -No What co-morbidities impacted this encounter? (DM, HTN, Smoking, COPD, CAD, Cancer, CVA, ARF, Chemo, Hep., AIDS, mental health diagnosis, sleep apnea, morbid obesity)? @ -None Was patient admitted / discharged? Hospital course, mention meds given and route, prescriptions, significant lab abnormalities, going to OR and other pertinent info. @ -32-year-old female presents emergency Department with abdominal pain and nausea. Patient's abdominal exam is nonsurgical. Vital signs stable. Labs are unremarkable. Clinical presentation consistent with gastroenteritis. Patient discharged. Undiagnosed new problem with uncertain prognosis? @ -No Drug Therapy requiring intensive monitoring for toxicity (Heparin, Nitro, Insulin, Cardizem)? @ -No Were any procedures done? @ -No Diagnosis/symptom? Acute, or Chronic, or Acute on Chronic? Uncomplicated (without systemic symptoms) or Complicated (systemic symptoms)? @ -1. Gastroenteritis Side effects of treatment? @ -No Exacerbation, Progression, or Severe Exacerbation? @ -No Poses a threat to life or bodily function? How? (Chest pain, [place], [place], pneumonia, PE, COPD, DKA, ARF, appy, cholecystitis, CVA, Diverticulitis, Homicidal, Suicidal, threat to staff... and all critical care pts) @ -yes - Lab Data Result diagrams: 01/08/23 23:59 01/08/23 23:59 Lab Results 01/08/23 01/08/23 Range/Units 23:59 23:59 WBC 8.4 (3.8-10.6) k/uL RBC 4.35 (3.80-5.40) m/uL Hgb 12.2 (11.4-16.0) gm/dL Hct 37.8 (34.0-46.0) % MCV 87.0 (80.0-100.0) fL MCH 28.1 (25.0-35.0) pg MCHC 32.4 (31.0-37.0) g/dL RDW 13.4 (11.5-15.5) % Plt Count 274 (150-450) k/uL MPV 8.5 Neutrophils % 77 % Lymphocytes % 15 % Monocytes % 5 % Eosinophils % 2 % Basophils % 0 % Neutrophils # 6.4 (1.3-7.7) k/uL Lymphocytes # 1.2 (1.0-4.8) k/uL Monocytes # 0.4 (0-1.0) k/uL Eosinophils # 0.2 (0-0.7) k/uL Basophils # 0.0 (0-0.2) k/uL Sodium 137 (137-145) mmol/L Potassium 4.3 (3.5-5.1) mmol/L Chloride 107 (98-107) mmol/L Carbon Dioxide 20 L (22-30) mmol/L Anion Gap 10 mmol/L BUN 12 (7-17) mg/dL Creatinine 0.75 (0.52-1.04) mg/dL Est GFR (CKD-EPI)AfAm >90 (>60 ml/min/1.73 sqM) Est GFR (CKD-EPI)NonAf >90 (>60 ml/min/1.73 sqM) Glucose 98 (74-99) mg/dL Calcium 9.2 (8.4-10.2) mg/dL Total Bilirubin 0.3 (0.2-1.3) mg/dL AST 24 (14-36) U/L ALT 27 (4-34) U/L Alkaline Phosphatase 65 (38-126) U/L Total Protein 6.6 (6.3-8.2) g/dL Albumin 3.7 (3.5-5.0) g/dL Lipase 69 (23-300) U/L HCG, Quant <2.4 mIU/mL Disposition Clinical Impression: Gastroenteritis Disposition: HOME SELF-CARE Condition: Good Instructions (If sedation given, give patient instructions): Acute Nausea and Vomiting (ED) Is patient prescribed a controlled substance at d/c from ED?: No Referrals: Elissa Perkins MD [Primary Care Provider] - 1-2 days Time of Disposition: 02:44
[2023-01-09 00:25] LABS: Basophils % (A) 0 %; Eosinophils # (A) 0.2 k/uL (0-0.7); Eosinophils % (A) 2 %; HCT 37.8 % (34.0-46.0); HGB 12.2 gm/dL (11.4-16.0); Lymphocytes # (A) 1.2 k/uL (1.0-4.8); Lymphocytes % (A) 15 %; MCH 28.1 pg (25.0-35.0); MCHC 32.4 g/dL (31.0-37.0); Mean Platelet Volume 8.5; Monocytes # (A) 0.4 k/uL (0-1.0); Monocytes % (A) 5 %; Neutrophils # (A) 6.4 k/uL (1.3-7.7); Neutrophils % (A) 77 %; Platelet Count 274 k/uL (150-450); RBC 4.35 m/uL (3.80-5.40); RDW 13.4 % (11.5-15.5); WBC 8.4 k/uL (3.8-10.6)
[2023-01-09 00:38] LABS: ALT 27 U/L (4-34); AST 24 U/L (14-36); African American GFR (CKD) >90 (>60 ml/min/1.73 sqM); Albumin 3.7 g/dL (3.5-5.0); Alkaline Phosphatase 65 U/L (38-126); Anion Gap 10 mmol/L; Blood Urea Nitrogen 12 mg/dL (7-17); Calcium 9.2 mg/dL (8.4-10.2); Carbon Dioxide 20 mmol/L (22-30); Chloride 107 mmol/L (98-107); Glucose 98 mg/dL (74-99); Lipase 69 U/L (23-300); Non-African American GFR(CKD) >90 (>60 ml/min/1.73 sqM); Potassium 4.3 mmol/L (3.5-5.1); Sodium 137 mmol/L (137-145); Total Bilirubin 0.3 mg/dL (0.2-1.3); Total Protein 6.6 g/dL (6.3-8.2)
[2023-01-09 00:54] LABS: HCG,Quantitative Serum <2.4 mIU/mL
--- NOTE | 2023-01-09 02:36 | XR ---
EXAM: XR Abdomen, 2 Views CLINICAL HISTORY: ITS.REASON XR Reason: abdominal pain TECHNIQUE: Frontal view of the abdomen/pelvis with upright view of the abdomen. COMPARISON: No relevant prior studies available. FINDINGS: Intraperitoneal space: No free air. Gastrointestinal tract: No dilation. Nonspecific gas pattern. Bones/joints: No acute fracture. No dislocation. IMPRESSION: No acute findings.
[2023-01-09] MEDS ORDERED: ONDANSETRON 4 MG ODT STARTER PACK 2 TAB BTL PO STA (02:45)
== END 2023-01-09 03:05 | disposition home or self-care (01) ==
LOC: EC 21:27
DX: K52.9 Noninfective gastroenteritis and colitis, unspecified (principal); J44.9 Chronic obstructive pulmonary disease, unspecified; I10 Essential (primary) hypertension; E78.5 Hyperlipidemia, unspecified; F31.9 Bipolar disorder, unspecified; Z88.0 Allergy status to penicillin; Z88.1 Allergy status to other antibiotic agents; Z91.040 Latex allergy status; Z88.8 Allergy status to other drugs, medicaments and biological substances; Z79.899 Other long term (current) drug therapy
CPT/HCPCS: 36415; 80053; 83690; 85025; 84702; 74018; 99284; 96374; J2405

== ENCOUNTER 2023-08-08 18:37 | Emergency (ER) | payer OTHER ==
[2023-08-08 19:16] VITALS: BP 136/96; PULSE 76; RESP 16; TEMP 98.1
--- NOTE | 2023-08-08 20:26 | ED ---
Seizure HPI - General Source: patient, family, RN notes reviewed Mode of arrival: wheelchair Limitations: no limitations <Jeanette Alvarez - Last Filed: 08/13/23 22:47> - General Source: RN notes reviewed, old records reviewed Mode of arrival: wheelchair Limitations: no limitations - History of Present Illness MD Complaint: seizure, other (Eyelid headache) -: minutes(s) Description of Episode: loss of consciousness, tonic-clonic movement -: second(s) Seizure History: known seizure disorder Place: home Possible Precipitating Event: none Associated Symptoms: denies other symptoms <Jose Fuentes - Last Filed: 08/16/23 16:16> - General Chief Complaint: Seizure Stated Complaint: Sizure, migrane Time Seen by Provider: 08/08/23 20:25 - History of Present Illness Initial Comments: Patient is a 33-year-old female presented ER with chief complaint of seizure. Family is providing most of HPI. They state that she is extremely disoriented and endorsing a migraine. (Jeanette Alvarez) This is a 33-year-old female to the emergency department with history of a seizure. Patient also is complaining of some headaches but no other acute findings here in the emergency. Patient has no significant trauma or other complaint (Jose Fuentes) - Related Data Home Medications Medication Instructions Recorded Confirmed norgestimate-ethinyl estradioL 1 tab PO DAILY 11/06/19 11/21/22 [Tri-Sprintec Tablet] Cenobamate [Xcopri] 100 mg PO DAILY 08/23/22 11/21/22 HYDROcodone/APAP 10-325MG [[place] 1 tab PO TID PRN 08/23/22 11/21/22 10-325] Rizatriptan Benzoate [Rizatriptan] 10 mg PO BID PRN 08/23/22 11/21/22 Valtoco 10mg/[place] Nasal 1 spray NASAL DAILY PRN 08/23/22 11/21/22 lisinopriL [Zestril] 10 mg PO DAILY 08/23/22 11/21/22 Atorvastatin [Lipitor] 20 mg PO HS 10/19/22 11/21/22 Liraglutide [Saxenda] 3 mg SQ DAILY 10/19/22 11/21/22 Meclizine [Antivert] 25 mg PO TID 10/19/22 11/21/22 Naproxen [Naprosyn] 500 mg PO BID 10/19/22 11/21/22 levETIRAcetam [Keppra] 1,000 mg PO Q12HR 10/19/22 11/21/22 Previous Rx's Medication Instructions Recorded ARIPiprazole [Abilify] 5 mg PO DAILY 30 Days #30 tab 11/25/22 Acetaminophen Tab [Tylenol] 650 mg PO Q4HR PRN tab 11/25/22 Albuterol Sulfate [Ventolin HFA] 2 puff INHALATION RT-Q6H PRN 30 11/25/22 Days #1 each Fluticasone Propion/Salmeterol 1 puff INHALATION RT-BID 30 Days 11/25/22 [Advair 100-50 Diskus] #1 each Ipratropium/Albuter 20-100Mcg 1 puff INHALATION RT-QID 30 Days 11/25/22 [Combivent Respimat 20-100Mcg #1 each Inhaler] Prazosin [Minipress] 3 mg PO HS 30 Days #90 cap 11/25/22 Sertraline [Zoloft] 50 mg PO HS 30 Days #30 tab 11/25/22 busPIRone HCL 15 mg PO BID 30 Days #60 tab 11/25/22 Allergies Allergy/AdvReac Type Severity Reaction Status Date / Time amoxicillin Allergy Rash/Hives Verified 08/08/23 19:00 divalproex sodium Allergy Unknown Verified 08/08/23 19:00 [From Depakote] gabapentin Allergy Unknown Verified 08/08/23 19:00 lamotrigine [From Lamictal] Allergy Unknown Verified 08/08/23 19:00 latex Allergy Unknown Verified 08/08/23 19:00 lithium [[place]] Allergy Unknown Verified 08/08/23 19:00 Penicillins Allergy Rash/Hives Verified 08/08/23 19:00 clindamycin AdvReac Unknown Verified 08/08/23 19:00 Review of Systems ROS Other: All systems not noted in ROS Statement are negative. <Jeanette Alvarez - Last Filed: 08/13/23 22:47> ROS Other: All systems not noted in ROS Statement are negative. <Jose Fuentes - Last Filed: 08/16/23 16:16> ROS Statement: Those systems with pertinent positive or pertinent negative responses have been documented in the HPI. Past Medical History Past Medical History: Asthma, COPD, Hyperlipidemia, Hypertension, Seizure Disorder, Sleep Apnea/CPAP/BIPAP Additional Past Medical History / Comment(s): NO CPAP USED. MIGRAINE headaches. LAST SEIZURE . HX ALCOHOL SYNDROME History of Any Multi-Drug Resistant Organisms: None Reported Past Surgical History: Orthopedic Surgery Additional Past Surgical History / Comment(s): GANGLION CYST REMOVED FROM LT WRIST. vagus nerve stimulator. BILAT KNEE SCOPES Past Anesthesia/Blood Transfusion Reactions: No Reported Reaction Past Psychological History: Bipolar, Schizophrenia Smoking Status: Never smoker Past Alcohol Use History: None Reported Past Drug Use History: None Reported - Past Family History Mother Family Medical History: No Reported History <Jeanette Alvarez - Last Filed: 08/13/23 22:47> General Exam Limitations: no limitations <Jeanette Alvarez - Last Filed: 08/13/23 22:47> General appearance: alert, in no apparent distress Head exam: Present: atraumatic, normocephalic, normal inspection Eye exam: Present: normal appearance, PERRL, EOMI. Absent: scleral icterus, conjunctival injection, periorbital swelling ENT exam: Present: normal exam, mucous membranes moist Neck exam: Present: normal inspection. Absent: tenderness, meningismus, lymphadenopathy Respiratory exam: Present: normal lung sounds bilaterally. Absent: respiratory distress, wheezes, rales, rhonchi, stridor Cardiovascular Exam: Present: regular rate, normal rhythm, normal heart sounds. Absent: systolic murmur, diastolic murmur, rubs, gallop, clicks GI/Abdominal exam: Present: soft, normal bowel sounds. Absent: distended, tenderness, guarding, rebound, rigid Extremities exam: Present: normal inspection, full ROM, normal capillary refill. Absent: tenderness, pedal edema, joint swelling, calf tenderness Back exam: Present: normal inspection Neurological exam: Present: alert, oriented X3, CN II-XII intact Psychiatric exam: Present: normal affect, normal mood Skin exam: Present: warm, dry, intact, normal color. Absent: rash <Jose Fuentes - Last Filed: 08/16/23 16:16> - General Exam Comments Initial Comments: Visual Physical Exam Vital signs reviewed General: Well-appearing, nontoxic, no acute distress. Head: Normocephalic, atraumatic Eyes: PERRLA, EOMI ENT: Airway patent Chest: Nonlabored breathing Skin: No visual rash, normal skin tone Neuro: Alert and oriented 3 Musculoskeletal: No gross abnormalities (Jeanette Alvarez) Course <Jose Fuentes - Last Filed: 08/16/23 16:16> Vital Signs 08/08/23 18:57 Temperature 98.1 F Pulse Rate 76 Respiratory 16 Rate Blood Pressure 136/96 O2 Sat by Pulse 99 Oximetry - Reevaluation(s) Reevaluation #1: Medical record is reviewed (Jose Fuentes) Reevaluation #2: Patient symptoms are improved (Jose Fuentes) Reevaluation #3: Patient informed of results questions answered (Jose Fuentes) Reevaluation #4: Was pt. sent in by a medical professional or institution (, PA, PUBLIC HOUSING MANAGER, urgent care, hospital, or long term...) When possible be specific @ -no Did you speak to anyone other than the patient for history (EMS, parent, family, police, friend...)? What history was obtained from this source @ -no Did you review nursing and triage notes (agree or disagree)? Why? @ -agree Are old charts reviewed (outside hosp., previous admission, EMS record, old EKG, old radiological studies, urgent care reports/EKG's, long term records)? Report findings @ -yes Differential Diagnosis (chest pain, altered mental status, abdominal pain women, abdominal pain men, vaginal bleeding, weakness, fever, dyspnea, syncope, headache, dizziness, GI bleed, back pain, seizure, CVA, palpatations, mental health, musculoskeletal)? @ -prior EKG interpreted by me (3pts min.). @ -no X-rays interpreted by me (1pt min.). @ -no CT interpreted by me (1pt min.). @ -no U/S interpreted by me (1pt. min.). @ -no What testing was considered but not performed or refused? (CT, X-rays, U/S, labs)? Why? @ -none What meds were considered but not given or refused? Why? @ -none Did you discuss the management of the patient with other professionals (professionals i.e. DrShweta, PA, PUBLIC HOUSING MANAGER, lab, RT, psych nurse, social scientist, fire boat engineer, teacher, commissioned defence force officer, onsite case manager)? Give summary @ -no Was smoking cessation discussed for >3mins.? @ -no Were there social determinants of health that impacted care today? How? (Homelessness, low income, unemployed, alcoholism, drug addiction, transportation, low edu. Level, literacy, decrease access to med. care, custodial, rehab)? @ -none Was there de-escalation of care discussed even if they declined (Discuss DNR or withdrawal of care, Hospice)? DNR status @ -no What co-morbidities impacted this encounter? (DM, HTN, Smoking, COPD, CAD, Cancer, CVA, ARF, Chemo, Hep., AIDS, mental health diagnosis, sleep apnea, morbid obesity)? @ -none Was patient admitted / discharged? Hospital course, mention meds given and route, prescriptions, significant lab abnormalities, going to OR and other pert inent info. @ - 33 female to the emergency department for evaluation of multiple complaints including seizure and headache. Patient symptoms are resolved here in the ER no recurrent seizure. Patient can be discharged home Discharge Was critical care preformed (if so, how long)? @ -no Undiagnosed new problem with uncertain prognosis? @ -no Drug Therapy requiring intensive monitoring for toxicity (Heparin, Nitro, Insulin, Cardizem)? @ -no Were any procedures done? @ -no Diagnosis/symptom? @ -Seizure recurrent headache Acute, or Chronic, or Acute on Chronic? @ -Acute Uncomplicated (without systemic symptoms) or Complicated (systemic symptoms)? @ -Complicated Side effects of treatment? @ -no Exacerbation, Progression, or Severe Exacerbation? @ -exacerbation Poses a threat to life or bodily function? How? (Chest pain, [place], [place], pneumonia, PE, COPD, DKA, ARF, appy, cholecystitis, CVA, Diverticulitis, Homicidal, Suicidal, threat to staff... and all critical care pts) @ -no (Jose Fuentes) Reevaluation #5: Differential Seizure: Recurrent seizure disorder, febrile seizure, alcohol withdrawal, stimulants, meningitis, encephalitis, intercranial hemorrhage, intracranial tumor, stroke, eclampsia, thyrotoxicosis, hypocalcemia, hyponatremia, hypernatremia, hypomagnesemia, psychogenic, this is not meant to be an all-inclusive list. (Jose Fuentes) Medical Decision Making - Lab Data Result diagrams: 08/08/23 21:45 08/08/23 21:45 <Jeanette Alvarez - Last Filed: 08/13/23 22:47> - Lab Data Result diagrams: 08/08/23 21:45 08/08/23 21:45 <Jose Fuentes - Last Filed: 08/16/23 16:16> - Medical Decision Making I performed the quick note portion of the exam. Electronically signed by Jeanette Alvarez PA-C (Jeanette Alvarez) 33 female to the emergency department for evaluation of multiple complaints including seizure and headache. Patient symptoms are resolved here in the ER no recurrent seizure. Patient can be discharged home (Jose Fuentes) - Lab Data Lab Results 08/08/23 08/08/23 08/08/23 Range/Units 21:45 21:45 21:45 WBC 8.3 (3.8-10.6) k/uL RBC 4.42 (3.80-5.40) m/uL Hgb 12.7 (11.4-16.0) gm/dL Hct 37.7 (34.0-46.0) % MCV 85.4 (80.0-100.0) fL MCH 28.7 (25.0-35.0) pg MCHC 33.6 (31.0-37.0) g/dL RDW 14.1 (11.5-15.5) % Plt Count 307 (150-450) k/uL MPV 8.0 Sodium 138 (137-145) mmol/L Potassium 4.0 (3.5-5.1) mmol/L Chloride 107 (98-107) mmol/L Carbon Dioxide 21 L (22-30) mmol/L Anion Gap 10 mmol/L BUN 16 (7-17) mg/dL Creatinine 0.66 (0.52-1.04) mg/dL Est GFR (CKD-EPI)AfAm >90 (>60 ml/min/1.73 sqM) Est GFR (CKD-EPI)NonAf >90 (>60 ml/min/1.73 sqM) Glucose 136 H (74-99) mg/dL Calcium 9.2 (8.4-10.2) mg/dL Total Bilirubin 0.3 (0.2-1.3) mg/dL AST 24 (14-36) U/L ALT 33 (4-34) U/L Alkaline Phosphatase 109 (38-126) U/L Total Protein 7.1 (6.3-8.2) g/dL Albumin 3.9 (3.5-5.0) g/dL Valproic Acid <10.0 ug/mL Lamotrigine (2.0-15.0) ug/mL [place] <0.2 mmol/L Influenza Type A (PCR) Not Detected (Not Detectd) Influenza Type B (PCR) Not Detected (Not Detectd) RSV (PCR) Not Detected (Not Detectd) SARS-CoV-2 (PCR) Not Detected (Not Detectd) 08/08/23 Range/Units 21:45 WBC (3.8-10.6) k/uL RBC (3.80-5.40) m/uL Hgb (11.4-16.0) gm/dL Hct (34.0-46.0) % MCV (80.0-100.0) fL MCH (25.0-35.0) pg MCHC (31.0-37.0) g/dL RDW (11.5-15.5) % Plt Count (150-450) k/uL MPV Sodium (137-145) mmol/L Potassium (3.5-5.1) mmol/L Chloride (98-107) mmol/L Carbon Dioxide (22-30) mmol/L Anion Gap mmol/L BUN (7-17) mg/dL Creatinine (0.52-1.04) mg/dL Est GFR (CKD-EPI)AfAm (>60 ml/min/1.73 sqM) Est GFR (CKD-EPI)NonAf (>60 ml/min/1.73 sqM) Glucose (74-99) mg/dL Calcium (8.4-10.2) mg/dL Total Bilirubin (0.2-1.3) mg/dL AST (14-36) U/L ALT (4-34) U/L Alkaline Phosphatase (38-126) U/L Total Protein (6.3-8.2) g/dL Albumin (3.5-5.0) g/dL Valproic Acid ug/mL Lamotrigine <0.2 (2.0-15.0) ug/mL [place] mmol/L Influenza Type A (PCR) (Not Detectd) Influenza Type B (PCR) (Not Detectd) RSV (PCR) (Not Detectd) SARS-CoV-2 (PCR) (Not Detectd) Disposition Is patient prescribed a controlled substance at d/c from ED?: No <Jeanette Alvarez - Last Filed: 08/13/23 22:47> Is patient prescribed a controlled substance at d/c from ED?: No Time of Disposition: 23:50 <Jose Fuentes - Last Filed: 08/16/23 16:16> Clinical Impression: Generalized seizure, Migraine headache Disposition: HOME SELF-CARE Instructions (If sedation given, give patient instructions): Seizure/Epilepsy Discharge Instructions & Follow-Up, Acute Headache (ED) Referrals: None,Stated [Primary Care Provider] - 1-2 days
[2023-08-08 22:11] LABS: HCT 37.7 % (34.0-46.0); HGB 12.7 gm/dL (11.4-16.0); MCH 28.7 pg (25.0-35.0); MCHC 33.6 g/dL (31.0-37.0); MCV 85.4 fL (80.0-100.0); Platelet Count 307 k/uL (150-450); RBC 4.42 m/uL (3.80-5.40); RDW 14.1 % (11.5-15.5); WBC 8.3 k/uL (3.8-10.6)
[2023-08-08 22:25] LABS: ALT 33 U/L (4-34); AST 24 U/L (14-36); African American GFR (CKD) >90 (>60 ml/min/1.73 sqM); Albumin 3.9 g/dL (3.5-5.0); Alkaline Phosphatase 109 U/L (38-126); Anion Gap 10 mmol/L; Blood Urea Nitrogen 16 mg/dL (7-17); Calcium 9.2 mg/dL (8.4-10.2); Carbon Dioxide 21 mmol/L (22-30); Chloride 107 mmol/L (98-107); Glucose 136 mg/dL (74-99); Lithium <0.2 mmol/L; Non-African American GFR(CKD) >90 (>60 ml/min/1.73 sqM); Sodium 138 mmol/L (137-145); Total Bilirubin 0.3 mg/dL (0.2-1.3); Total Protein 7.1 g/dL (6.3-8.2)
[2023-08-08 22:31] LABS: Valproic Acid (Depakene) <10.0 ug/mL
[2023-08-08] MEDS ORDERED: PROCHLORPERAZINE 10 MG TAB PO STA (23:52)
[2023-08-08] MEDS ORDERED: diphenhydrAMINE 50 MG CAP PO STA (23:52)
[2023-08-08] MEDS ORDERED: traMADol 50 MG TAB PO STA (23:52)
[2023-08-08] MEDS ORDERED: ETODOLAC 400 MG TAB PO STA (23:52)
== END 2023-08-09 00:11 | disposition home or self-care (01) ==
LOC: EC 18:37
DX: G40.409 Other generalized epilepsy and epileptic syndromes, not intractable, without status epilepticus (principal); G43.909 Migraine, unspecified, not intractable, without status migrainosus; J44.89 Other specified chronic obstructive pulmonary disease; I10 Essential (primary) hypertension; E78.5 Hyperlipidemia, unspecified; F31.9 Bipolar disorder, unspecified; F20.9 Schizophrenia, unspecified; Z20.822 Contact with and (suspected) exposure to COVID-19; Z79.899 Other long term (current) drug therapy; Z88.0 Allergy status to penicillin; Z88.1 Allergy status to other antibiotic agents; Z88.8 Allergy status to other drugs, medicaments and biological substances; Z91.040 Latex allergy status
CPT/HCPCS: 36415; 80164; 80053; 80175; 80178; 85027; 87636; 99284; S0183

== ENCOUNTER 2023-09-13 16:39 | Inpatient (IN) | payer OTHER ==
[2023-09-13] MEDS: ACETAMINOPHEN TAB 500 MG TAB PO STA ×2 (16:59→21:37)
[2023-09-13] MEDS: IBUPROFEN 600 MG TAB PO STA (17:00)
[2023-09-13] MEDS: SODIUM CHLORIDE 0.9% 500 ML 500 ML IV ONE (17:00)
[2023-09-13 17:07] LABS: Basophils % (A) 1 %; Eosinophils # (A) 0.1 k/uL (0-0.7); Eosinophils % (A) 1 %; HCT 37.6 % (34.0-46.0); HGB 12.1 gm/dL (11.4-16.0); Lymphocytes # (A) 0.4 k/uL (1.0-4.8); Lymphocytes % (A) 6 %; MCH 27.7 pg (25.0-35.0); MCHC 32.3 g/dL (31.0-37.0); MCV 85.9 fL (80.0-100.0); Mean Platelet Volume 7.9; Monocytes # (A) 0.5 k/uL (0-1.0); Monocytes % (A) 7 %; Neutrophils # (A) 5.9 k/uL (1.3-7.7); Neutrophils % (A) 83 %; Platelet Count 269 k/uL (150-450); RBC 4.37 m/uL (3.80-5.40); RDW 14.3 % (11.5-15.5)
[2023-09-13 17:17] LABS: ALT 29 U/L (4-34); African American GFR (CKD) >90 (>60 ml/min/1.73 sqM); Albumin 3.6 g/dL (3.5-5.0); Anion Gap 6 mmol/L; Blood Urea Nitrogen 12 mg/dL (7-17); Calcium 8.6 mg/dL (8.4-10.2); Carbon Dioxide 23 mmol/L (22-30); Chloride 106 mmol/L (98-107); Glucose 108 mg/dL (74-99); Non-African American GFR(CKD) >90 (>60 ml/min/1.73 sqM); Sodium 135 mmol/L (137-145); Total Bilirubin 0.5 mg/dL (0.2-1.3); Total Protein 6.7 g/dL (6.3-8.2)
--- NOTE | 2023-09-13 17:29 | XR ---
EXAMINATION TYPE: XR chest 2V DATE OF EXAM: 09/13/2023 COMPARISON: NONE HISTORY: Difficulty breathing TECHNIQUE: Frontal and lateral views of the chest are obtained. FINDINGS there is a pacemaker unit with no leads attached. It obscures a portion of the left mid lung . The lungs are clear. There is no pleural effusion or pneumothorax. Heart and pulmonary vasculature are normal for the technique. The osseous structures are intact. IMPRESSION: No acute cardiopulmonary disease.
[2023-09-13 17:39] LABS: AST 34 U/L (14-36); Alkaline Phosphatase 66 U/L (38-126); Magnesium 1.7 mg/dL (1.6-2.3); Potassium 4.3 mmol/L (3.5-5.1)
[2023-09-13 18:02] LABS: Amorphous Sediment,Urine Rare /hpf; Appearance,Urine Turbid (Clear); Bacteria,Urine Rare /hpf; Bilirubin,Urine Negative (Negative); Blood,Urine Negative (Negative); Color,Urine Yellow; Glucose,Urine (UA) Negative (Negative); Ketones,Urine Negative (Negative); Leukocyte Esterase,Urine Trace (Negative); Mucus,Urine Many /hpf; Nitrite,Urine Negative (Negative); Protein,Urine Trace (Negative); RBC,Urine >182 /hpf (0-5); Specific Gravity,Urine 1.026 (1.001-1.035); Squamous Epithelial Cell,Urine 16 /hpf (0-4); WBC,Urine 14 /hpf (0-5)
--- NOTE | 2023-09-13 18:15 | ED ---
General Adult HPI - General Chief complaint: Seizure Stated complaint: Seizure Source: patient, RN notes reviewed, old records reviewed Mode of arrival: EMS Limitations: altered mental status - History of Present Illness Initial comments: This is a 33-year-old female who presents to the emergency department with a known seizure history. Patient has a vagal stimulator. Patient had according to the girlfriend multiple seizures today she believes about 4 most lasted just a couple of minutes but the last 1 lasted longer and they were rubbing the magnet on her vagal stimulator and it did not stop when EMS arrived she was still seizing but she stopped shortly thereafter. Patient is on no seizure medications according to the friend. Patient had temperature of 102.3 and has influenza A. Patient denies any complaints currently aside from being tired - Related Data Home Medications Medication Instructions Recorded Confirmed norgestimate-ethinyl estradioL 1 tab PO DAILY 11/06/19 11/21/22 [Tri-Sprintec Tablet] Cenobamate [Xcopri] 100 mg PO DAILY 08/23/22 11/21/22 HYDROcodone/APAP 10-325MG [[place] 1 tab PO TID PRN 08/23/22 11/21/22 10-325] Rizatriptan Benzoate [Rizatriptan] 10 mg PO BID PRN 08/23/22 11/21/22 Valtoco 10mg/Fluker Nasal 1 spray NASAL DAILY PRN 08/23/22 11/21/22 lisinopriL [Zestril] 10 mg PO DAILY 08/23/22 11/21/22 Atorvastatin [Lipitor] 20 mg PO HS 10/19/22 11/21/22 Liraglutide [Saxenda] 3 mg SQ DAILY 10/19/22 11/21/22 Meclizine [Antivert] 25 mg PO TID 10/19/22 11/21/22 Naproxen [Naprosyn] 500 mg PO BID 10/19/22 11/21/22 levETIRAcetam [Keppra] 1,000 mg PO Q12HR 10/19/22 11/21/22 Previous Rx's Medication Instructions Recorded ARIPiprazole [Abilify] 5 mg PO DAILY 30 Days #30 tab 11/25/22 Acetaminophen Tab [Tylenol] 650 mg PO Q4HR PRN tab 11/25/22 Albuterol Sulfate [Ventolin HFA] 2 puff INHALATION RT-Q6H PRN 30 11/25/22 Days #1 each Fluticasone Propion/Salmeterol 1 puff INHALATION RT-BID 30 Days 11/25/22 [Advair 100-50 Diskus] #1 each Ipratropium/Albuter 20-100Mcg 1 puff INHALATION RT-QID 30 Days 11/25/22 [Combivent Respimat 20-100Mcg #1 each Inhaler] Prazosin [Minipress] 3 mg PO HS 30 Days #90 cap 11/25/22 Sertraline [Zoloft] 50 mg PO HS 30 Days #30 tab 11/25/22 busPIRone HCL 15 mg PO BID 30 Days #60 tab 11/25/22 Allergies Allergy/AdvReac Type Severity Reaction Status Date / Time amoxicillin Allergy Rash/Hives Verified 09/13/23 16:54 divalproex sodium Allergy Unknown Verified 09/13/23 16:54 [From Depakote] gabapentin Allergy Unknown Verified 09/13/23 16:54 lamotrigine [From Lamictal] Allergy Unknown Verified 09/13/23 16:54 latex Allergy Unknown Verified 09/13/23 16:54 lithium [Pe Ell] Allergy Unknown Verified 09/13/23 16:54 Penicillins Allergy Rash/Hives Verified 09/13/23 16:54 clindamycin AdvReac Unknown Verified 09/13/23 16:54 Review of Systems ROS Statement: Those systems with pertinent positive or pertinent negative responses have been documented in the HPI. ROS Other: All systems not noted in ROS Statement are negative. Past Medical History Past Medical History: Asthma, COPD, Hyperlipidemia, Hypertension, Seizure Disord er, Sleep Apnea/CPAP/BIPAP Additional Past Medical History / Comment(s): NO CPAP USED. MIGRAINE headaches. LAST SEIZURE . HX ALCOHOL SYNDROME History of Any Multi-Drug Resistant Organisms: None Reported Past Surgical History: Orthopedic Surgery Additional Past Surgical History / Comment(s): GANGLION CYST REMOVED FROM LT WRIST. vagus nerve stimulator. BILAT KNEE SCOPES Past Anesthesia/Blood Transfusion Reactions: No Reported Reaction Past Psychological History: Bipolar, Schizophrenia Smoking Status: Never smoker Past Alcohol Use History: None Reported Past Drug Use History: None Reported - Past Family History Mother Family Medical History: No Reported History General Exam - General Exam Comments Initial Comments: GENERAL: Patient is well-developed and well-nourished. Patient is nontoxic and well- hydrated and is in mild distress. Patient was warm to the touch. I took the patient's temperature was 102.3 ENT: Neck is soft and supple. No significant lymphadenopathy is noted. Oropharynx is clear. Moist mucous membranes. Neck has full range of motion without eliciting any pain. EYES: The sclera were anicteric and conjunctiva were pink and moist. Extraocular movements were intact and pupils were equal round and reactive to light. Eyelids were unremarkable. PULMONARY: Unlabored respirations. Good breath sounds bilaterally. No audible rales rhonchi or wheezing was noted. CARDIOVASCULAR: There is a regular rate and rhythm without any murmurs gallops or rubs. ABDOMEN: Soft and nontender with normal bowel sounds. SKIN: Skin is clear with no lesions or rashes and otherwise unremarkable. NEUROLOGIC: Patient is alert and oriented x3. Cranial nerves II through XII are grossly intact. Motor and sensory are also intact. Normal speech, volume and content. Symmetrical smile. MUSCULOSKELETAL: Normal extremities with adequate strength and full range of motion LYMPHATICS: No significant lymphadenopathy is noted PSYCHIATRIC: Normal psychiatric evaluation. Limitations: altered mental status Course Vital Signs 09/13/23 09/13/23 09/13/23 16:48 18:10 18:56 Temperature 102.9 F H 101.3 F H Pulse Rate 122 H 110 H 120 H Respiratory 18 18 20 Rate Blood Pressure 133/112 150/82 149/71 O2 Sat by Pulse 93 L 98 90 L Oximetry 09/13/23 09/13/23 09/13/23 19:33 19:45 19:59 Temperature 100.1 F H Pulse Rate 109 H 104 H 112 H Respiratory 20 Rate Blood Pressure 141/73 O2 Sat by Pulse 95 Oximetry 09/13/23 20:30 Temperature Pulse Rate 120 H Respiratory Rate Blood Pressure O2 Sat by Pulse Oximetry Medical Decision Making - Medical Decision Making EKG is interpreted by myself. EKG shows a sinus tachycardia at 116 bpm parables 151 QRS 102 QT interval 319 QTc is 388. Patient's EKG shows no ST segment ovation or depression. Was pt. sent in by a medical professional or institution (, PA, SOLAR TECH, urgent care, hospital, or retirement...) When possible be specific @ -No Did you speak to anyone other than the patient for history (EMS, parent, family, police, friend...)? What history was obtained from this source @ -Patient's girlfriend gave all of the history Did you review nursing and triage notes (agree or disagree)? Why? @ -I reviewed and agree with nursing and triage notes Were old charts reviewed (outside hosp., previous admission, EMS record, old EKG, old radiological studies, urgent care reports/EKG's, retirement records)? Report findings @ -I reviewed prior charts on this patient Differential Diagnosis (chest pain, altered mental status, abdominal pain women, abdominal pain men, vaginal bleeding, weakness, fever, dyspnea, syncope, headache, dizziness, GI bleed, back pain, seizure, CVA, palpatations, mental health, musculoskeletal)? @ -Differential Seizure: Recurrent seizure disorder, febrile seizure, alcohol withdrawal, stimulants, meningitis, encephalitis, intercranial hemorrhage, intracranial tumor, stroke, eclampsia, thyrotoxicosis, hypocalcemia, hyponatremia, hypernatremia, hypomagnesemia, psychogenic, this is not meant to be an all-inclusive list. EKG interpreted by me (3pts min.). @ -As above X-rays interpreted by me (1pt min.). @ -Chest x-ray shows no acute abnormality CT interpreted by me (1pt min.). @ -None done U/S interpreted by me (1pt. min.). @ -None done What testing was considered but not performed or refused? (CT, X-rays, U/S, lab s)? Why? @ -None What meds were considered but not given or refused? Why? @ -None Did you discuss the management of the patient with other professionals (professionals i.e. , PA, SOLAR TECH, lab, RT, psych nurse, protective services social worker, spent grain dryer, teacher, dispatch officer, adult protective caseworker)? Give summary @ -I spoke with sound physicians he agreed admit the patient admitted the patient I wrote admitting orders. Was smoking cessation discussed for >3mins.? @ -No Was critical care preformed (if so, how long)? @ -No Were there social determinants of health that impacted care today? How? (Homelessness, low income, unemployed, alcoholism, drug addiction, transportation, low edu. Level, literacy, decrease access to med. care, half-way, rehab)? @ -No Was there de-escalation of care discussed even if they declined (Discuss DNR or withdrawal of care, Hospice)? DNR status @ -No What co-morbidities impacted this encounter? (DM, HTN, Smoking, COPD, CAD, Cancer, CVA, ARF, Chemo, Hep., AIDS, mental health diagnosis, sleep apnea, morbid obesity)? @ -None Was patient admitted / discharged? Hospital course, mention meds given and route, prescriptions, significant lab abnormalities, going to OR and other pertinent info. @ -Patient was given Motrin Tylenol brought the fever down she is feeling considerably better. Patient had no further seizures while in the emergency department. Patient's lab work came back within normal range. Patient was desatting down to high 80s so patient was placed on oxygen and given a breathing treatment. Patient continued to have a fever so she was mildly tachycardic. D-dimer came back elevated so a CT of the chest was ordered. Undiagnosed new problem with uncertain prognosis? @ -No Drug Therapy requiring intensive monitoring for toxicity (Heparin, Nitro, Insulin, Cardizem)? @ -No Were any procedures done? @ -No Diagnosis/symptom? @ -Seizure Acute, or Chronic, or Acute on Chronic? @ -Acute Uncomplicated (without systemic symptoms) or Complicated (systemic symptoms)? @ -Complicated Side effects of treatment? @ -No Exacerbation, Progression, or Severe Exacerbation? @ -No Poses a threat to life or bodily function? How? (Chest pain, USA, MS, pneumonia, PE, COPD, DKA, ARF, appy, cholecystitis, CVA, Diverticulitis, Homicidal, Suicidal, threat to staff... and all critical care pts) @ -No Diagnosis/symptom? @ -Influenza A Acute, or Chronic, or Acute on Chronic? @ -Acute Uncomplicated (without systemic symptoms) or Complicated (systemic symptoms)? @ -Complicate Side effects of treatment? @ -None Exacerbation, Progression, or Severe Exacerbation] @ -No Poses a threat to life or bodily function? @ -No - Lab Data Result diagrams: 09/13/23 16:56 09/13/23 16:56 Lab Results 09/13/23 09/13/23 09/13/23 Range/Units 16:56 16:56 16:56 WBC 7.0 (3.8-10.6) k/uL RBC 4.37 (3.80-5.40) m/uL Hgb 12.1 (11.4-16.0) gm/dL Hct 37.6 (34.0-46.0) % MCV 85.9 (80.0-100.0) fL MCH 27.7 (25.0-35.0) pg MCHC 32.3 (31.0-37.0) g/dL RDW 14.3 (11.5-15.5) % Plt Count 269 (150-450) k/uL MPV 7.9 Neutrophils % 83 % Lymphocytes % 6 % Monocytes % 7 % Eosinophils % 1 % Basophils % 1 % Neutrophils # 5.9 (1.3-7.7) k/uL Lymphocytes # 0.4 L (1.0-4.8) k/uL Monocytes # 0.5 (0-1.0) k/uL Eosinophils # 0.1 (0-0.7) k/uL Basophils # 0.0 (0-0.2) k/uL D-Dimer (<0.60) mg/L FEU Sodium 135 L (137-145) mmol/L Potassium 4.3 (3.5-5.1) mmol/L Chloride 106 (98-107) mmol/L Carbon Dioxide 23 (22-30) mmol/L Anion Gap 6 mmol/L BUN 12 (7-17) mg/dL Creatinine 0.81 (0.52-1.04) mg/dL Est GFR (CKD-EPI)AfAm >90 (>60 ml/min/1.73 sqM) Est GFR (CKD-EPI)NonAf >90 (>60 ml/min/1.73 sqM) Glucose 108 H (74-99) mg/dL Plasma Lactic Acid Parveen 1.4 (0.7-2.0) mmol/L Calcium 8.6 (8.4-10.2) mg/dL Magnesium 1.7 (1.6-2.3) mg/dL Total Bilirubin 0.5 (0.2-1.3) mg/dL AST 34 (14-36) U/L ALT 29 (4-34) U/L Alkaline Phosphatase 66 (38-126) U/L Total Protein 6.7 (6.3-8.2) g/dL Albumin 3.6 (3.5-5.0) g/dL Urine Color Urine Appearance (Clear) Urine pH (5.0-8.0) Ur Specific [place] (1.001-1.035) Urine Protein (Negative) Urine Glucose (UA) (Negative) Urine Ketones (Negative) Urine Blood (Negative) Urine Nitrite (Negative) Urine Bilirubin (Negative) Urine Urobilinogen (<2.0) mg/dL Ur Leukocyte Esterase (Negative) Urine RBC (0-5) /hpf Urine WBC (0-5) /hpf Urine WBC Clumps (None) /hpf Ur Squamous Epith Cells (0-4) /hpf Amorphous Sediment (None) /hpf Urine Bacteria (None) /hpf Urine Mucus (None) /hpf Influenza Type A (PCR) (Not Detectd) Influenza Type B (PCR) (Not Detectd) RSV (PCR) (Not Detectd) SARS-CoV-2 (PCR) (Not Detectd) 09/13/23 09/13/23 09/13/23 Range/Units 16:56 17:26 18:58 WBC (3.8-10.6) k/uL RBC (3.80-5.40) m/uL Hgb (11.4-16.0) gm/dL Hct (34.0-46.0) % MCV (80.0-100.0) fL MCH (25.0-35.0) pg MCHC (31.0-37.0) g/dL RDW (11.5-15.5) % Plt Count (150-450) k/uL MPV Neutrophils % % Lymphocytes % % Monocytes % % Eosinophils % % Basophils % % Neutrophils # (1.3-7.7) k/uL Lymphocytes # (1.0-4.8) k/uL Monocytes # (0-1.0) k/uL Eosinophils # (0-0.7) k/uL Basophils # (0-0.2) k/uL D-Dimer 1.98 H (<0.60) mg/L FEU Sodium (137-145) mmol/L Potassium (3.5-5.1) mmol/L Chloride (98-107) mmol/L Carbon Dioxide (22-30) mmol/L Anion Gap mmol/L BUN (7-17) mg/dL Creatinine (0.52-1.04) mg/dL Est GFR (CKD-EPI)AfAm (>60 ml/min/1.73 sqM) Est GFR (CKD-EPI)NonAf (>60 ml/min/1.73 sqM) Glucose (74-99) mg/dL Plasma Lactic Acid Parveen (0.7-2.0) mmol/L Calcium (8.4-10.2) mg/dL Magnesium (1.6-2.3) mg/dL Total Bilirubin (0.2-1.3) mg/dL AST (14-36) U/L ALT (4-34) U/L Alkaline Phosphatase (38-126) U/L Total Protein (6.3-8.2) g/dL Albumin (3.5-5.0) g/dL Urine Color Yellow Urine Appearance Turbid H (Clear) Urine pH 7.0 (5.0-8.0) Ur Specific [place] 1.026 (1.001-1.035) Urine Protein Trace H (Negative) Urine Glucose (UA) Negative (Negative) Urine Ketones Negative (Negative) Urine Blood Negative (Negative) Urine Nitrite Negative (Negative) Urine Bilirubin Negative (Negative) Urine Urobilinogen 2.0 (<2.0) mg/dL Ur Leukocyte Esterase Trace H (Negative) Urine RBC >182 H (0-5) /hpf Urine WBC 14 H (0-5) /hpf Urine WBC Clumps Occasional H (None) /hpf Ur Squamous Epith Cells 16 H (0-4) /hpf Amorphous Sediment Rare H (None) /hpf Urine Bacteria Rare H (None) /hpf Urine Mucus Many H (None) /hpf Influenza Type A (PCR) Detected A (Not Detectd) Influenza Type B (PCR) Not Detected (Not Detectd) RSV (PCR) Not Detected (Not Detectd) SARS-CoV-2 (PCR) Not Detected (Not Detectd) Disposition Clinical Impression: Influenza, Generalized seizure, Hypoxia Disposition: ADMITTED IP TO THIS [facility] Instructions (If sedation given, give patient instructions): Seizure/Epilepsy Discharge Instructions & Follow-Up, Influenza (ED) Is patient prescribed a controlled substance at d/c from ED?: No Referrals: None,Stated [Primary Care Provider] - 1-2 days Time of Disposition: 18:22
[2023-09-13] MEDS: SODIUM CHLORIDE 0.9% 1,000 ML IV ONE (19:05)
[2023-09-13] MEDS: ALBUTEROL NEBULIZED 7.5 MG, IPRATROPIUM NEBULIZED 0.5 MG, SODIUM CHLORIDE 0.9% NEBULIZ ... INHALATION ONE (19:41)
[2023-09-13] MEDS ORDERED: IBUPROFEN 400 MG TAB PO PRN (20:45)
[2023-09-13] MEDS ORDERED: NALOXONE 0.4 MG/ML 1 ML VIAL IV PRN (20:45)
[2023-09-13] MEDS: SODIUM CHLORIDE 0.9% 1,000 ML IV SCH (21:09)
[2023-09-13] MEDS: OSELTAMIVIR 75 MG CAP PO SCH (21:37)
--- NOTE | 2023-09-13 21:43 | CT ---
EXAMINATION TYPE: CT chest angio for PE DATE OF EXAM: 09/13/2023 COMPARISON: NONE HISTORY: high dimer, sob. Inpatient. CT DLP: 1235.2 mGycm. Automated Exposure Control for Dose Reduction was Utilized. CONTRAST: CTA scan of the thorax is performed with IV Contrast, patient injected with 100 ml mL of Is ovue 300. MIP Images are created on CT scanner and reviewed. 3D reconstructed images are created on an independent workstation and reviewed. FINDINGS: LUNGS/PLEURAL SPACES: The lungs are grossly clear, there is no concerning parenchymal mass or nodule identified. There is no pleural effusion or pneumothorax seen. The tracheobronchial tree is patent. MEDIASTINUM: There is unsatisfactory contrast enhancement of the pulmonary artery and its branches. T herefore, this examination can only exclude pulmonary embolism of the main pulmonary artery and the r ight pulmonary artery and left artery. There is mild dilation of the central pulmonary 2 days, which can correlate with a clinical diagnosis of pulmonary hypertension. There is no definite acute aortic process. There is moderate cardiomegaly but no pericardial effusion. There are no greater than 1 cm hilar or mediastinal lymph nodes. OTHER: There is indistinctness with evident hypointensity within the pancreatic body/tail which is on ly partially visualized with this study. Recommend follow-up CT abdomen pancreas protocol to ensure b enignity. IMPRESSION: Cannot exclude segmental or subsegmental pulmonary emboli. No acute pulmonary pleural process. No acu te aortic process. Incidental subdiaphragmatic finding as discussed.
[2023-09-14] MEDS: KETOROLAC 15 MG/ML 1 ML VIAL IVP STA (00:16)
--- NOTE | 2023-09-14 01:17 | P.HPIM ---
History of Present Illness H&P Date: 09/13/23 Chief Complaint: seizure 33-year-old female with seizure disorder Patient coming in for evaluation due to recurrent episodes of seizures at home she initially came in accompanied by a friend who reported she had multiple seizures today usually lasted 1 to 2 minutes however last 1 lasted for too long they were trying to pass the magnet over her vagal stimulator but was unable to break the seizure she continued seizing until EMS arrived and stopped shortly after. Patient friend initially mentioned to the ED that the patient is not on any antiseizure medications however upon asking the patient herself she reports that she is on Keppra. She reports that her seizures are difficult to control her last breakthrough seizure was about 1 month ago patient is on disability due to that. Patient also reports 3-day history of sore throat diffuse body aches coughing chills, she reports fevers at home denies any nausea vomiting denies any diarrhea denies any abdominal pain denies any GI bleeding denies any recent travel or hospital stay denies any known sick contact. While in the ED she became hypoxic with oxygen saturation down to the 80s percent for which she was kept in the hospital after confirming a diagnosis of influenza A and CT angio of the chest was unable to rule out completely a segmental/subsegmental PE Patient denies tobacco smoking illicit drugs or heavy alcohol review of systems Pertinent positives as noted in HPI. All other systems were reviewed and are negative on exam Constitutional: No acute distress, conversant, pleasant Eyes: Anicteric sclerae, moist conjunctiva, Pupils equal round reactive to light ENMT: NC/AT Oropharynx clear, no erythema, or exudates Neck: Supple, no masses, or JVD No carotid bruits No thyromegaly Lungs: Clear to auscultation Clear to percussion Normal respiratory effort, no accessory muscle use Cardiovascular: Heart regular in rate and rhythm, No murmurs, gallops, or rubs No peripheral edema Abdominal: Soft Nontender, no guarding, rebound or rigidity Abdomen moving with respiration Normoactive bowel sounds No hepatomegaly, No splenomegaly Extremities: No digital cyanosis No clubbing Pedal pulses intact and symmetrical Radial pulses intact and symmetrical No calf tenderness Psychiatric: Alert and oriented to person, place and time Appropriate affect fair judgement Neuro Muscles Strength 5/5 in all 4 extremities Sensation to light touch grossly present throughout Cranial nerves II-XII grossly intact Past Medical History Past Medical History: Asthma, COPD, Hyperlipidemia, Hypertension, Seizure Disorder, Sleep Apnea/CPAP/BIPAP Additional Past Medical History / Comment(s): NO CPAP USED. MIGRAINE headaches. LAST SEIZURE 07/2023. HX ALCOHOL SYNDROME History of Any Multi-Drug Resistant Organisms: None Reported Past Surgical History: Orthopedic Surgery Additional Past Surgical History / Comment(s): GANGLION CYST REMOVED FROM LT WRIST. vagus nerve stimulator. BILAT KNEE SCOPES Past Anesthesia/Blood Transfusion Reactions: No Reported Reaction Past Psychological History: Bipolar, Schizophrenia Smoking Status: Never smoker Past Alcohol Use History: None Reported Past Drug Use History: None Reported - Past Family History Mother Family Medical History: No Reported History Medications and Allergies Home Medications Medication Instructions Recorded Confirmed Type norgestimate-ethinyl estradioL 1 tab PO DAILY 11/06/19 09/13/23 History [Tri-Sprintec Tablet] HYDROcodone/APAP 10-325MG [[place] 1 tab PO QID 08/23/22 09/13/23 History 10-325] Rizatriptan Benzoate [Rizatriptan] 10 mg PO BID PRN 08/23/22 09/13/23 History lisinopriL [Zestril] 10 mg PO DAILY 08/23/22 09/13/23 History Meclizine [Antivert] 25 mg PO TID 10/19/22 09/13/23 History levETIRAcetam [Keppra] 1,000 mg PO Q12HR 10/19/22 09/13/23 History Acetaminophen Tab [Tylenol] 650 mg PO Q4HR PRN tab 11/25/22 09/13/23 Rx Baclofen [Lioresal] 20 mg PO BID PRN 09/13/23 09/13/23 History Prazosin HCl 2 mg PO HS 09/13/23 09/13/23 History Prazosin [Minipress] 1 mg PO HS 09/13/23 09/13/23 History Promethazine 6.25MG/5Ml [Phenergan 6.25 mg PO Q6H PRN 09/13/23 09/13/23 History Syrup] Sertraline [Zoloft] 100 mg PO HS 09/13/23 09/13/23 History diazePAM [Valtoco] 10 mg NASAL DIRECTED PRN 09/13/23 09/13/23 History Allergies Allergy/AdvReac Type Severity Reaction Status Date / Time amoxicillin Allergy Rash/Hives Verified 09/13/23 21:00 divalproex sodium Allergy Unknown Verified 09/13/23 21:00 [From Depakote] gabapentin Allergy Unknown Verified 09/13/23 21:00 lamotrigine [From Lamictal] Allergy Unknown Verified 09/13/23 21:00 latex Allergy Unknown Verified 09/13/23 21:00 lithium [[place]] Allergy Unknown Verified 09/13/23 21:00 Penicillins Allergy Rash/Hives Verified 09/13/23 21:00 clindamycin AdvReac Unknown Verified 09/13/23 21:00 Physical Exam Vitals: Vital Signs Temp Pulse Resp BP Pulse Ox 09/14/23 00:15 96 20 117/60 92 L 09/13/23 22:24 109 H 19 127/66 96 09/13/23 20:30 120 H 09/13/23 19:59 112 H 09/13/23 19:45 104 H 09/13/23 19:33 100.1 F H 109 H 20 141/73 95 09/13/23 18:56 101.3 F H 120 H 20 149/71 90 L 09/13/23 18:10 110 H 18 150/82 98 09/13/23 16:48 102.9 F H 122 H 18 133/112 93 L Intake and Output 09/13/23 09/13/23 09/14/23 14:59 22:59 06:59 Other: Weight 165.561 kg Results CBC & Chem 7: 09/13/23 16:56 09/13/23 16:56 Labs: Abnormal Lab Results - Last 24 Hours (Table) 09/13/23 09/13/23 09/13/23 Range/Units 16:56 16:56 16:56 Lymphocytes # 0.4 L (1.0-4.8) k/uL D-Dimer (<0.60) mg/L FEU Sodium 135 L (137-145) mmol/L Glucose 108 H (74-99) mg/dL Urine Appearance (Clear) Urine Protein (Negative) Ur Leukocyte Esterase (Negative) Urine RBC (0-5) /hpf Urine WBC (0-5) /hpf Urine WBC Clumps (None) /hpf Ur Squamous Epith Cells (0-4) /hpf Amorphous Sediment (None) /hpf Urine Bacteria (None) /hpf Urine Mucus (None) /hpf Influenza Type A (PCR) Detected A (Not Detectd) 09/13/23 09/13/23 Range/Units 17:26 18:58 Lymphocytes # (1.0-4.8) k/uL D-Dimer 1.98 H (<0.60) mg/L FEU Sodium (137-145) mmol/L Glucose (74-99) mg/dL Urine Appearance Turbid H (Clear) Urine Protein Trace H (Negative) Ur Leukocyte Esterase Trace H (Negative) Urine RBC >182 H (0-5) /hpf Urine WBC 14 H (0-5) /hpf Urine WBC Clumps Occasional H (None) /hpf Ur Squamous Epith Cells 16 H (0-4) /hpf Amorphous Sediment Rare H (None) /hpf Urine Bacteria Rare H (None) /hpf Urine Mucus Many H (None) /hpf Influenza Type A (PCR) (Not Detectd) Assessment and Plan Assessment: 33-year-old female with seizure disorder, COPD coming in for recurrent seizure episodes, was also found to be hypoxic in the ED I discussed case with ED doctor accepted the admission for acute hypoxic respiratory failure secondary to underlying acute influenza A infection, CT angio of the chest could not rule out completely segmental/subsegmental PE with anticipated length of stay more than 2 midnights Acute hypoxic respiratory failure Acute influenza A infection Possible segmental/subsegmental PE Workup showed positive D-dimer, CT angio of the chest could not rule out completely a segmental/subsegmental PE Start patient on blood thinners heparin drip for PE protocol Monitor hemoglobin Check venous Doppler ultrasound bilateral legs Patient was started on Tamiflu in the ED Symptomatic control Supplemental oxygen as needed Droplet precautions Gentle IV fluid hydration normal saline 100 cc/h Pain control with Motrin 600 mg every 8 hours as needed Breakthrough seizure in patient with seizure disorder Status post vagal stimulator Continue with Keppra home medication Seizure precautions Patient is known to have poorly controlled seizures COPD Continue with DuoNebs as needed DVT prophylaxis currently on heparin drip for possible PE Full code GI prophylaxis PPI Protonix 40 mg daily Blood work showed elevated D-dimer 1.78 White count 7 hemoglobin 12 unremarkable Sodium 135 potassium 4.3 BUN 12 creatinine 0.8 unremarkable
[2023-09-14] MEDS ORDERED: HEPARIN SODIUM 1,000 UN/ML (10ML VL) IV PRN (01:27)
[2023-09-14] MEDS: HEPARIN SODIUM 1,000 UN/ML (10ML VL) IV ONE (01:54)
[2023-09-14] MEDS: HEPARIN SOD,PORK IN 0.45% NACL 25,000 UNIT in 0.45% NACL 1 250ML.BAG IV SCH (01:55)
[2023-09-14 02:02] LABS: Basophils % (A) 0 %; Eosinophils # (A) 0.1 k/uL (0-0.7); Eosinophils % (A) 1 %; HCT 35.4 % (34.0-46.0); HGB 11.5 gm/dL (11.4-16.0); Lymphocytes # (A) 0.4 k/uL (1.0-4.8); Lymphocytes % (A) 5 %; MCH 28.1 pg (25.0-35.0); MCHC 32.5 g/dL (31.0-37.0); MCV 86.3 fL (80.0-100.0); Mean Platelet Volume 7.7; Monocytes # (A) 0.5 k/uL (0-1.0); Monocytes % (A) 7 %; Neutrophils # (A) 6.3 k/uL (1.3-7.7); Neutrophils % (A) 84 %; Platelet Count 249 k/uL (150-450); RDW 14.4 % (11.5-15.5); WBC 7.5 k/uL (3.8-10.6)
[2023-09-14] MEDS: levETIRAcetam 500 MG TAB PO SCH (02:06)
[2023-09-14 02:17] LABS: Partial Thromboplastin Time 26.6 sec (22.0-30.0); Prothrombin Time 11.2 sec (10.0-12.5)
[2023-09-14] MEDS: IPRATROPIUM-ALBUTEROL 3 ML NEB INHALATION PRN (03:26)
[2023-09-14] MEDS: methylPREDNISolone SOD SUCCI 125 MG/2 ML VIAL IV SCH (06:31)
--- NOTE | 2023-09-14 06:46 | P.CNPUL ---
History of Present Illness Consult date: 09/14/23 Requesting physician: Eduardo Bonilla Reason for consult: other (Influenza A infection and asthma/COPD exacerbation. Possible PE.) Chief complaint: Generalized tonic-clonic seizures History of present illness: I am seeing this patient in consultation today September 14, 2023 in the emergency room after the patient presented with breakthrough seizures and flulike symptoms. Patient is a 33-year-old white female with past medical history significant for seizure disorder with implanted nerve stimulator, asthma/COPD, hypertension, morbid obesity, grains, anxiety depression, other things. Patient presented to emergency room yesterday evening after being witnessed to have multiple breakthrough seizures by her significant other. She is on Keppra. Not responsive to vagal stimulator. Patient was noted to be febrile on arrival to the emergency room with a Tmax of 102.9 F. She reports 3 days of progressively worsening shortness of breath, fever, cough with yellow sputum production. She has had some associated nausea and vomiting and reduced appetite. Denies any hematemesis, abdominal pain, or diarrhea. She was positive for influenza A on arrival, and has been started on Tamiflu. Her D- dimer was also noted to be elevated on arrival. A follow-up chest CT was performed and no definitive central pulmonary embolism was identified. Unable to exclude segmental or segment segmental emboli due to poor IV contrast enhancement. She is currently lying in bed, on 2 L/min nasal cannula, in no acute distress. She is alert and able to answer my questions. No further severe like activity reported by nursing staff. She denies any history of thromboembolism. Her father has had a DVT. She is morbidly obese and sedentary at home. She does take combined hormonal oral contraceptives mostly for dysmenorrhea. Denies any recent surgeries, prolonged travel, trauma or malignancy. Denies any unilateral leg edema. Denies any chest pain or hemoptysis. She was tachycardic on arrival, however, likely secondary to fever. Her symptoms are more likely related to influenza A infection and exacerbation of the patient's known asthma/COPD. Patient has history of asthma and reportedly COPD. She has never smoked, but was exposed to second hand smoke as a child. She uses a PRN albuterol inhaler at home. Reports that she suppose to be taking Advair, but cannot afford it. Patient was started on a high intensity heparin infusion per protocol on arrival. CBC on arrival unremarkable. No leukocytosis. Baseline coagulation profile WDL. BMP on arrival also unremarkable. Vital signs are stable. Review of Systems REVIEW OF SYSTEMS: CONSTITUTIONAL: Denies any recent significant weight loss or weight gain. EYES: Denies change in vision. EARS, NOSE, MOUTH, THROAT: Denies headaches, denies sore throat. CARDIOVASCULAR: Denies chest pain, palpitations or syncopal episodes. RESPIRATORY: See HPI GASTROINTESTINAL: See HPI GENITOURINARY: Denies hematuria, denies infections. MUSKULOSKELETAL: Denies pain, denies swelling. INTEGUMENTARY: Denies rash, denies eczema. NEUROLOGICAL: Denies recent memory loss, no recent seizure activity. PSYCHIATRIC: Denies anxiety, denies depression. HEMATOLOGIC/LYMPHATIC: Denies anemia, denies enlarged lymph node Past Medical History Past Medical History: Asthma, COPD, Hyperlipidemia, Hypertension, Seizure Disorder, Sleep Apnea/CPAP/BIPAP Additional Past Medical History / Comment(s): NO CPAP USED. MIGRAINE headaches. LAST SEIZURE 07/2023. HX ALCOHOL SYNDROME History of Any Multi-Drug Resistant Organisms: None Reported Past Surgical History: Orthopedic Surgery Additional Past Surgical History / Comment(s): GANGLION CYST REMOVED FROM LT WRIST. vagus nerve stimulator. BILAT KNEE SCOPES Past Anesthesia/Blood Transfusion Reactions: No Reported Reaction Past Psychological History: Bipolar, Schizophrenia Smoking Status: Never smoker Past Alcohol Use History: None Reported Past Drug Use History: None Reported - Past Family History Mother Family Medical History: No Reported History Medications and Allergies Home Medications Medication Instructions Recorded Confirmed Type norgestimate-ethinyl estradioL 1 tab PO DAILY 11/06/19 09/13/23 History [Tri-Sprintec Tablet] HYDROcodone/APAP 10-325MG [[place] 1 tab PO QID 08/23/22 09/13/23 History 10-325] Rizatriptan Benzoate [Rizatriptan] 10 mg PO BID PRN 08/23/22 09/13/23 History lisinopriL [Zestril] 10 mg PO DAILY 08/23/22 09/13/23 History Meclizine [Antivert] 25 mg PO TID 10/19/22 09/13/23 History levETIRAcetam [Keppra] 1,000 mg PO Q12HR 10/19/22 09/13/23 History Acetaminophen Tab [Tylenol] 650 mg PO Q4HR PRN tab 11/25/22 09/13/23 Rx Baclofen [Lioresal] 20 mg PO BID PRN 09/13/23 09/13/23 History Prazosin HCl 2 mg PO HS 09/13/23 09/13/23 History Prazosin [Minipress] 1 mg PO HS 09/13/23 09/13/23 History Promethazine 6.25MG/5Ml [Phenergan 6.25 mg PO Q6H PRN 09/13/23 09/13/23 History Syrup] Sertraline [Zoloft] 100 mg PO HS 09/13/23 09/13/23 History diazePAM [Valtoco] 10 mg NASAL DIRECTED PRN 09/13/23 09/13/23 History Allergies Allergy/AdvReac Type Severity Reaction Status Date / Time amoxicillin Allergy Rash/Hives Verified 09/13/23 21:00 divalproex sodium Allergy Unknown Verified 09/13/23 21:00 [From Depakote] gabapentin Allergy Unknown Verified 09/13/23 21:00 lamotrigine [From Lamictal] Allergy Unknown Verified 09/13/23 21:00 latex Allergy Unknown Verified 09/13/23 21:00 lithium [[place]] Allergy Unknown Verified 09/13/23 21:00 Penicillins Allergy Rash/Hives Verified 09/13/23 21:00 clindamycin AdvReac Unknown Verified 09/13/23 21:00 Physical Exam Vitals: Vital Signs Temp Pulse Resp BP Pulse Ox 09/14/23 03:33 88 09/14/23 03:27 78 09/14/23 03:19 97.2 F L 09/14/23 02:00 89 20 103/52 94 L 09/14/23 00:15 96 20 117/60 92 L 09/13/23 22:24 109 H 19 127/66 96 09/13/23 20:30 120 H 09/13/23 19:59 112 H 09/13/23 19:45 104 H 09/13/23 19:33 100.1 F H 109 H 20 141/73 95 09/13/23 18:56 101.3 F H 120 H 20 149/71 90 L 09/13/23 18:10 110 H 18 150/82 98 09/13/23 16:48 102.9 F H 122 H 18 133/112 93 L Intake and Output 09/13/23 09/13/23 09/14/23 14:59 22:59 06:59 Other: Weight 165.561 kg GENERAL EXAM: Alert, 33-year-old morbidly obese female, comfortable in no apparent distress. HEAD: Normocephalic and atraumatic EYES: Normal reaction of pupils, equal size. NOSE: Clear with pink turbinates. THROAT: No erythema or exudates. NECK: No masses, no JVD. CHEST: No chest wall deformity. LUNGS: Equal air entry with mild expiratory wheezes heard throughout the posterior lung worley. On 2 L/min nasal cannula. No conversational dyspnea or accessory muscle use.. CVS: S1 and S2 normal with no audible murmur, regular rhythm. No extra heart sounds ABDOMEN: No hepatosplenomegaly, active bowel sounds, no guarding or rigidity. SPINE: No scoliosis or deformity SKIN: No rashes CENTRAL NERVOUS SYSTEM: No focal deficits, tone is normal in all 4 extremities. EXTREMITIES: There is no peripheral edema, clubbing, or cyanosis. Peripheral pulses are intact. Results - Laboratory Findings CBC and BMP: 09/14/23 01:52 09/13/23 16:56 PT/INR, D-dimer PT 11.2 sec (10.0-12.5) 09/14/23 01:52 INR 1.0 (<1.2) 09/14/23 01:52 D-Dimer 1.98 mg/L FEU (<0.60) H 09/13/23 18:58 Abnormal lab findings: Abnormal Labs 09/13/23 09/13/23 09/13/23 16:56 16:56 16:56 Lymphocytes # 0.4 L D-Dimer Sodium 135 L Glucose 108 H Urine Appearance Urine Protein Ur Leukocyte Esterase Urine RBC Urine WBC Urine WBC Clumps Ur Squamous Epith Cells Amorphous Sediment Urine Bacteria Urine Mucus Influenza Type A (PCR) Detected A 09/13/23 09/13/23 09/14/23 17:26 18:58 01:52 Lymphocytes # 0.4 L D-Dimer 1.98 H Sodium Glucose Urine Appearance Turbid H Urine Protein Trace H Ur Leukocyte Esterase Trace H Urine RBC >182 H Urine WBC 14 H Urine WBC Clumps Occasional H Ur Squamous Epith Cells 16 H Amorphous Sediment Rare H Urine Bacteria Rare H Urine Mucus Many H Influenza Type A (PCR) - Diagnostic Findings Chest x-ray: image reviewed Assessment and Plan Assessment: Breakthrough seizures History of seizure disorder, status post vagal stimulator Acute hypoxemic respiratory failure, currently on 2 L/min, likely secondary to exacerbation of asthma/COPD and acute influenza A infection. Elevated D-dimer, chest CTA did not show any obvious central pulmonary embolism, unable to completely rule out segmental and subsegmental pulmonary emboli, although, clinical suspicion is low. Morbid obesity, with a BMI of 55.5 kg/m Obstructive sleep apnea, without home CPAP History of schizoaffective disorder/bipolar disorder History of polysubstance abuse History of migraines Plan: Patient's medications, labs, imaging reviewed Continue supplemental oxygen Start patient on combination of DuoNebs, Symbicort [place], and IV Solu-Medrol. Continue Tamiflu twice daily for 5 days. Patient is currently on a high intensity heparin protocol, which will be discontinued. Clinical suspicion for pulmonary embolism is low. Patient's antiepileptic medications have been resumed. No further breakthrough seizures reported by nursing staff. Continue seizure precautions. We will continue to follow. I have personally seen and examined the patient, performed the documentation and the assessment and plan as written. Number of minutes spent on the visit:20 Time with Patient: Greater than 30
[2023-09-14] MEDS: SYMBICORT 160-4.5 MCG INHALER INHALATION SCH (07:47)
[2023-09-14] MEDS: lisinopriL 10 MG TAB PO SCH (08:15)
[2023-09-14] MEDS: PANTOPRAZOLE 40 MG TABLET PO SCH (08:15)
[2023-09-14 14:42] LABS: African American GFR (CKD) >90 (>60 ml/min/1.73 sqM); Anion Gap 7 mmol/L; Blood Urea Nitrogen 12 mg/dL (7-17); Calcium 8.8 mg/dL (8.4-10.2); Carbon Dioxide 19 mmol/L (22-30); Chloride 111 mmol/L (98-107); Glucose 165 mg/dL (74-99); Non-African American GFR(CKD) >90 (>60 ml/min/1.73 sqM); Potassium 4.3 mmol/L (3.5-5.1); Sodium 137 mmol/L (137-145)
--- NOTE | 2023-09-14 14:54 | US ---
EXAMINATION TYPE: US venous doppler duplex LE BI DATE OF EXAM: 09/14/2023 9:25 AM COMPARISON: NONE CLINICAL INDICATION: Female, 33 years old with history of DVT SIDE PERFORMED: Bilateral TECHNIQUE: The lower extremity deep venous system is examined utilizing real time linear array sonog sary with graded compression, doppler sonography and color-flow sonography. VESSELS IMAGED: Common Femoral Vein Deep Femoral Vein Greater Saphenous Vein * Femoral Vein Popliteal Vein Small Saphenous Vein * Proximal Calf Veins (* superficial vessels) Right Leg: No evidence of DVT. Left Leg: No evidence of DVT. IMPRESSION: No evidence for DVT within bilateral lower extremities imaged from the groin to the upper calves.
--- NOTE | 2023-09-14 15:45 | P.PN ---
Subjective Progress Note Date: 09/14/23 Hospital Course: 33-year-old female with history of asthma/COPD, seizure disorder initially presented for multiple breakthrough seizures patient is also experiencing 3 days of cold symptoms. While in the ED, patient was hypoxic down to 80s. Laboratory workup showed elevated D-dimer 1.98, CBC unremarkable, influenza A positive. Urinalysis was dirty. CTA chest did not show any PE, but could not exclude segmental or subsegmental pulmonary embolism. Lower extremity venous Dopplers did not show any DVTs. Patient was initially on heparin drip, which is now discontinued. Pulmonology was also consulted. Subjective: Patient seen and examined at bedside. No acute events overnight. Pertinent positives and negatives as discussed above, a complete review of systems was performed and all other systems are negative. Vitals Signs Reviewed. General: Nontoxic, no distress, appears at stated age, morbidly obese Derm: Warm, dry Head: Atraumatic, normocephalic, symmetric Eyes: EOMI, no lid lag, anicteric sclera Mouth: No lip lesion, mucus membranes moist Cardiovascular: S1S2 reg, no murmur Lungs: Scattered wheezing, no accessory muscle use, supplemental oxygen Abdominal: Soft, nontender to palpation, no guarding, no appreciable organomegaly Ext: No gross muscle atrophy, trace peripheral edema, no contractures Neuro: CN II-XI grossly intact, no focal neuro deficits Psych: Alert, oriented, appropriate affect Data Reviewed Today: Pertinent Labs: WBC 7.5, hemoglobin 11.5, platelet 249, bicarb 19, creatinine 0.59, glucose 165 Imaging: Lower extremity venous Dopplers negative for DVT Assessment and Plan: Active: Acute hypoxic respiratory failure Acute influenza A infection Acute COPD/asthma exacerbation -Continue to wean oxygen -DuoNeb as needed, Symbicort twice daily, Solu-Medrol IV 60 every 6 hours, Tamiflu 75 every 12 hours -Pulmonology note reviewed, unlikely to be PE, heparin drip discontinued Breakthrough seizures -Likely in the setting of acute influenza infection -Continue Keppra 1000 mg every 12 hours -Neurology consulted Suspected hypointensity within the pancreatic body/tail -CT abdomen pancreas protocol pending Chronic: Hypertension GERD Depression DVT ppx: Subcu heparin Code status: Full code Anticipated discharge place: Pending clinical course Anticipated discharge time: Pending clinical course Objective - Vital Signs Vital signs: Vital Signs Temp 98.3 F 09/14/23 13:59 Pulse 71 09/14/23 13:59 Resp 20 09/14/23 13:59 BP 147/83 09/14/23 13:59 Pulse Ox 95 09/14/23 13:59 FiO2 Intake & Output 09/13/23 09/14/23 09/14/23 18:59 06:59 18:59 Weight 165.561 kg - Labs CBC & Chem 7: 09/14/23 01:52 09/14/23 14:22 Labs: Abnormal Lab Results - Last 24 Hours (Table) 09/13/23 09/13/23 09/13/23 Range/Units 16:56 16:56 16:56 Lymphocytes # 0.4 L (1.0-4.8) k/uL APTT (22.0-30.0) sec D-Dimer (<0.60) mg/L FEU Sodium 135 L (137-145) mmol/L Chloride (98-107) mmol/L Carbon Dioxide (22-30) mmol/L Glucose 108 H (74-99) mg/dL Urine Appearance (Clear) Urine Protein (Negative) Ur Leukocyte Esterase (Negative) Urine RBC (0-5) /hpf Urine WBC (0-5) /hpf Urine WBC Clumps (None) /hpf Ur Squamous Epith Cells (0-4) /hpf Amorphous Sediment (None) /hpf Urine Bacteria (None) /hpf Urine Mucus (None) /hpf Influenza Type A (PCR) Detected A (Not Detectd) 09/13/23 09/13/23 09/14/23 Range/Units 17:26 18:58 01:52 Lymphocytes # 0.4 L (1.0-4.8) k/uL APTT (22.0-30.0) sec D-Dimer 1.98 H (<0.60) mg/L FEU Sodium (137-145) mmol/L Chloride (98-107) mmol/L Carbon Dioxide (22-30) mmol/L Glucose (74-99) mg/dL Urine Appearance Turbid H (Clear) Urine Protein Trace H (Negative) Ur Leukocyte Esterase Trace H (Negative) Urine RBC >182 H (0-5) /hpf Urine WBC 14 H (0-5) /hpf Urine WBC Clumps Occasional H (None) /hpf Ur Squamous Epith Cells 16 H (0-4) /hpf Amorphous Sediment Rare H (None) /hpf Urine Bacteria Rare H (None) /hpf Urine Mucus Many H (None) /hpf Influenza Type A (PCR) (Not Detectd) 09/14/23 09/14/23 Range/Units 08:06 14:22 Lymphocytes # (1.0-4.8) k/uL APTT >200.0 H* (22.0-30.0) sec D-Dimer (<0.60) mg/L FEU Sodium (137-145) mmol/L Chloride 111 H (98-107) mmol/L Carbon Dioxide 19 L (22-30) mmol/L Glucose 165 H (74-99) mg/dL Urine Appearance (Clear) Urine Protein (Negative) Ur Leukocyte Esterase (Negative) Urine RBC (0-5) /hpf Urine WBC (0-5) /hpf Urine WBC Clumps (None) /hpf Ur Squamous Epith Cells (0-4) /hpf Amorphous Sediment (None) /hpf Urine Bacteria (None) /hpf Urine Mucus (None) /hpf Influenza Type A (PCR) (Not Detectd)
[2023-09-14] MEDS: HEPARIN SODIUM,PORCINE 5,000 UNIT/ML 1 ML VIAL SQ SCH (16:15)
--- NOTE | 2023-09-14 21:47 | CT ---
EXAMINATION TYPE: CT pancreas biphase DATE OF EXAM: 09/14/2023 COMPARISON: Correlation CTA chest 09/13/2023 HISTORY: 33-year-old female hypointensity body/tail of pancreas on CTA chest TECHNIQUE: CT of the abdomen following administration of 100 ml Isovue-370 IV contrast. Arterial and portal venous phase imaging is performed along with coronal/sagittal reconstructions. CT DLP: 4084 mGycm Automated exposure control for dose reduction was used. FINDINGS: The heart is borderline enlarged without pericardial effusion. Strandy atelectasis in the l ower lungs without pleural effusion. Liver enlarged at 19.0 cm with diminished attenuation. Portal venous system is patent. No focal liver lesion. No biliary ductal dilatation. Motion limited exam. Also, noise artifacts from large body habitus. No abnormal gallbladder distentio n. Renal glands, kidneys, and spleen within normal limits. No discrete pancreatic mass or other abnormality is clearly identified a line for the above-mentioned limitations. No dilated small bowel, free fluid, or free air. No mesenteric or retroperitoneal adenopathy. Normal appendix. Scattered mild stool burden. No pericolic inflammatory change. Partially visualized uterus as well as a 2.1 cm dominant follicle or functional cyst of the left ovar y. Right ovary also visualized. Pelvis incompletely imaged on this pancreas CT. Bones: At least mild degenerative change of the hips. There are bilateral L5 pars defects noted. Mild degenerative disc disease lower thoracic spine. IMPRESSION: 1. BORDERLINE HEART SIZE. 2. HEPATOMEGALY AT 19.0 CM WITH AT LEAST MODERATE HEPATIC STEATOSIS. APPROPRIATE CLINICAL MANAGEMENT IS ADVISED. 3. EXAM LIMITED DUE TO COMBINATION OF LARGE BODY HABITUS AND PROMINENT BREATHING MOTION. ALLOWING FOR THIS LIMITATION, NO DISCRETE PANCREATIC ABNORMALITY IS SEEN. 4. BILATERAL L5 PARS DEFECTS.
[2023-09-14] MEDS: PRAZOSIN 1 MG CAP PO SCH (23:04)
[2023-09-14] MEDS: SERTRALINE 100 MG TAB PO SCH (23:05)
--- NOTE | 2023-09-15 10:52 | P.PN ---
Subjective Progress Note Date: 09/15/23 Hospital Course: 33-year-old female with history of asthma/COPD, seizure disorder initially presented for multiple breakthrough seizures patient is also experiencing 3 days of cold symptoms. While in the ED, patient was hypoxic down to 80s. Laboratory workup showed elevated D-dimer 1.98, CBC unremarkable, influenza A positive. Urinalysis was dirty. CTA chest did not show any PE, but could not exclude segmental or subsegmental pulmonary embolism. Lower extremity venous Dopplers did not show any DVTs. Patient was initially on heparin drip, which is now discontinued. Pulmonology was also consulted. Subjective: Patient seen and examined at bedside. No acute events overnight. No new seizu re-like activity. Continues to have shortness of breath with movement as well as nonproductive cough Pertinent positives and negatives as discussed above, a complete review of systems was performed and all other systems are negative. Vitals Signs Reviewed. General: Nontoxic, no distress, appears at stated age, morbidly obese Derm: Warm, dry Head: Atraumatic, normocephalic, symmetric Eyes: EOMI, no lid lag, anicteric sclera Mouth: No lip lesion, mucus membranes moist Cardiovascular: S1S2 reg, no murmur Lungs: Scattered wheezing, no accessory muscle use, supplemental oxygen Abdominal: Soft, nontender to palpation, no guarding, no appreciable organomegaly Ext: No gross muscle atrophy, trace peripheral edema, no contractures Neuro: CN II-XI grossly intact, no focal neuro deficits Psych: Alert, oriented, appropriate affect Data Reviewed Today: Pertinent Labs: CBC and BMP pending, will be reviewed when available Imaging: Pancreatic CT showed hepatomegaly but no discrete pancreatic ab normalities Assessment and Plan: Active: Acute hypoxic respiratory failure Acute influenza A infection Acute COPD/asthma exacerbation -Continue to wean oxygen -DuoNeb as needed, Symbicort twice daily, Solu-Medrol IV 60 every 6 hours, Tamiflu 75 every 12 hours -Pulmonology following, continue current management Breakthrough seizures Epilepsy -Has a nerve stimulator -Likely in the setting of acute influenza infection -Continue Keppra 1000 mg every 12 hours -Neurology consulted Chronic: Hypertension GERD Depression DVT ppx: Subcu heparin Code status: Full code Anticipated discharge place: home Anticipated discharge time: possibly tomorrow Objective - Vital Signs Vital signs: Vital Signs Temp 97.7 F 09/15/23 08:00 Pulse 80 09/15/23 10:09 Resp 16 09/15/23 02:00 BP 118/73 09/15/23 08:00 Pulse Ox 98 09/15/23 08:00 FiO2 Intake & Output 09/14/23 09/15/23 09/15/23 18:59 06:59 18:59 Intake Total 540 180 Output Total 800 1500 Balance -800 -960 180 Weight 165.561 kg Intake: Oral 540 180 Output: Urine 800 1500 Other: Voiding Method External Catheter # Voids 1 # Bowel Movements 1 - Labs CBC & Chem 7: 09/14/23 01:52 09/14/23 14:22 Labs: Abnormal Lab Results - Last 24 Hours (Table) 09/14/23 Range/Units 14:22 Chloride 111 H (98-107) mmol/L Carbon Dioxide 19 L (22-30) mmol/L Glucose 165 H (74-99) mg/dL
[2023-09-15 11:03] LABS: HCT 39.6 % (37.2-46.3); HGB 12.4 g/dL (12.0-15.0); MCH 27.2 pg (27.0-32.0); MCHC 31.3 g/dL (32.0-37.0); MCV 86.8 FL (80.0-97.0); Mean Platelet Volume 10.6 FL (9.5-12.2); NRBC Per 100 WBC 0 X 10*3/uL (0.00-0.01); Platelet Count 289 X 10*3/uL (140-440); RBC 4.56 X 10*6/uL (4.10-5.20); RDW 15.4 % (11.5-14.5); WBC 11.11 X 10*3/uL (4.50-10.00)
[2023-09-15 11:04] LABS: Basophils # (A) 0.01 X 10*3/uL (0.00-0.10); Basophils % (A) 0.1 %; Eosinophils # (A) 0 X 10*3/uL (0.04-0.35); Eosinophils % (A) 0 %; Lymphocytes % (A) 7.2 %; Monocytes # (A) 0.46 X 10*3/uL (0.20-1.00); Monocytes % (A) 4.1 %; Neutrophils # (A) 9.81 X 10*3/uL (1.80-7.70); Neutrophils % (A) 88.3 %
[2023-09-15 11:21] LABS: BUN/Creat Ratio 13.29 Ratio (12.00-20.00); Blood Urea Nitrogen 9.3 mg/dL (9.0-27.0); Calcium 9.1 mg/dL (8.7-10.3); Carbon Dioxide 19.9 mmol/L (21.6-31.8); Chloride 108 mmol/L (96-109); Glucose 184 mg/dL (70-110); Potassium 3.8 mmol/L (3.5-5.5); Sodium 140 mmol/L (135-145)
--- NOTE | 2023-09-15 12:18 | P.PN ---
Subjective Progress Note Date: 09/15/23 I am seeing this patient in consultation today September 14, 2023 in the emergency room after the patient presented with breakthrough seizures and flulike symptoms. Patient is a 33-year-old white female with past medical history significant for seizure disorder with implanted nerve stimulator, asthma/COPD, hypertension, morbid obesity, grains, anxiety depression, other things. Patient presented to emergency room yesterday evening after being witnessed to have multiple breakthrough seizures by her significant other. She is on Keppra. Not responsive to vagal stimulator. Patient was noted to be febri le on arrival to the emergency room with a Tmax of 102.9 F. She reports 3 days of progressively worsening shortness of breath, fever, cough with yellow sputum production. She has had some associated nausea and vomiting and reduced appetite. Denies any hematemesis, abdominal pain, or diarrhea. She was positive for influenza A on arrival, and has been started on Tamiflu. Her D- dimer was also noted to be elevated on arrival. A follow-up chest CT was performed and no definitive central pulmonary embolism was identified. Unable to exclude segmental or segment segmental emboli due to poor IV contrast enhancement. She is currently lying in bed, on 2 L/min nasal cannula, in no acute distress. She is alert and able to answer my questions. No further severe like activity reported by nursing staff. She denies any history of thromboembolism. Her father has had a DVT. She is morbidly obese and sedentary at home. She does take combined hormonal oral contraceptives mostly for dysmenorrhea. Denies any recent surgeries, prolonged travel, trauma or malignancy. Denies any unilateral leg edema. Denies any chest pain or hemoptysis. She was tachycardic on arrival, however, likely secondary to fever. Her symptoms are more likely related to influenza A infection and exacerbation of the patient's known asthma/COPD. Patient has history of asthma and reportedly COPD. She has never smoked, but was exposed to second hand smoke as a child. She uses a PRN albuterol inhaler at home. Reports that she suppose to be taking Advair, but cannot afford it. Patient was started on a high intensity heparin infusion per protocol on arrival. CBC on arrival unremarkable. No leukocytosis. Baseline coagulation profile WDL. BMP on arrival also unremarkable. Vital signs are stable. The patient is seen today September 15, 2023 and follow-up on the regular medical floor. She is currently resting comfortably in bed. Awake and alert in no acute distress. Maintaining O2 saturations in the 90s on 4 L/min per nasal cannula. She has normal saline at 75 MLS per hour. She is continued on DuoNeb inhalations, Solu-Medrol, Symbicort, Tamiflu. Doppler of the lower extremities revealed no evidence of DVT. CT scan of the abdomen revealed hepatomegaly at 19.0 cm with at least moderate hepatic steatosis. Limited exam due to large body habitus and prominent breathing motion. No discrete pancreatic abnormality is seen. White count 11.1. Hemoglobin 12.4. Platelets 289. Sodium 140. Potassium 3.8. Bicarb 20. BUN 9. Creatinine 0.7. Glucose 184. Stool for occult blood negative. Objective - Vital Signs Vital signs: Vital Signs Temp 97.7 F 09/15/23 08:00 Pulse 80 09/15/23 10:09 Resp 16 09/15/23 02:00 BP 118/73 09/15/23 08:00 Pulse Ox 98 09/15/23 08:00 FiO2 Intake & Output 09/14/23 09/15/23 09/15/23 18:59 06:59 18:59 Intake Total 540 180 Output Total 800 1500 Balance -800 -960 180 Weight 165.561 kg Intake: Oral 540 180 Output: Urine 800 1500 Other: Voiding Method External Catheter # Voids 1 # Bowel Movements 1 - Exam GENERAL EXAM: Alert, 33-year-old morbidly obese female, resting in bed, on 4 L nasal cannula, comfortable in no apparent distress. HEAD: Normocephalic and atraumatic EYES: Normal reaction of pupils, equal size. NOSE: Clear with pink turbinates. THROAT: No erythema or exudates. NECK: No masses, no JVD. CHEST: No chest wall deformity. LUNGS: Equal air entry with mild expiratory wheezes heard throughout the posterior lung worley. No conversational dyspnea or accessory muscle use.. CVS: S1 and S2 normal with no audible murmur, regular rhythm. No extra heart sounds ABDOMEN: No hepatosplenomegaly, active bowel sounds, no guarding or rigidity. SPINE: No scoliosis or deformity SKIN: No rashes CENTRAL NERVOUS SYSTEM: No focal deficits, tone is normal in all 4 extremities. EXTREMITIES: There is no peripheral edema, clubbing, or cyanosis. Peripheral pulses are intact. - Labs CBC & Chem 7: 09/15/23 08:44 09/15/23 08:44 Labs: Abnormal Lab Results - Last 24 Hours (Table) 09/14/23 09/15/23 09/15/23 Range/Units 14:22 08:44 08:44 WBC 11.11 H (4.50-10.00) X 10*3/uL MCHC 31.3 L (32.0-37.0) g/dL RDW 15.4 H (11.5-14.5) % Neutrophils # 9.81 H (1.80-7.70) X 10*3/uL Lymphocytes # 0.80 L (0.90-5.00) X 10*3/uL Eosinophils # 0 L (0.04-0.35) X 10*3/uL Chloride 111 H (98-107) mmol/L Carbon Dioxide 19 L 19.9 L (22-30) mmol/L Anion Gap 12.10 H (4.00-12.00) mmol/L Glucose 165 H 184 H (74-99) mg/dL Assessment and Plan Assessment: Breakthrough seizures History of seizure disorder, status post vagal stimulator Acute hypoxemic respiratory failure, currently on 4 L/min, likely secondary to exacerbation of asthma/COPD and acute influenza A infection. Elevated D-dimer, chest CTA did not show any obvious central pulmonary embolism, unable to completely rule out segmental and subsegmental pulmonary emboli, although, clinical suspicion is low. Morbid obesity, with a BMI of 55.5 kg/m Obstructive sleep apnea, without home CPAP History of schizoaffective disorder/bipolar disorder History of polysubstance abuse History of migraines Plan: The patient was seen and evaluated Labs and medications reviewed Continued on bronchodilators, steroids Continued on Tamiflu Titrate down the FiO2 as tolerated We will continue to follow I have personally seen and examined the patient, performed the documentation and the assessment and plan as written. Number of minutes spent on the visit: 10.
[2023-09-15] MEDS: levETIRAcetam 500 MG TAB PO STA (17:00)
--- NOTE | 2023-09-15 17:26 | P.CNNES ---
History of Present Illness Consult date: 09/15/23 Requesting physician: Lucho Gomez Reason for Consult: Breakthrough seizures History of Present Illness: Patient is a 33-year-old female with history of epilepsy since she was a child. Patient follows up with Alisha Wynne NP at [facility]. Patient is currently on Keppra 1000 mg twice daily. She also had undergone VNS placement about a year ago. Patient used to have grand mal seizures but since VNS placement, she is getting "silent seizures". Patient's was also on the phone, who provided with a history. With the silent seizures, she would be looking at you, not responding, feels up and slightly shakes. She does not pass out but does not remember the event. There is no tongue bite, although she may lose control of urine. Patient has developed acute febrile illness. Patient had 4 "silent seizures" [id number], for which EMS was called. As per patient's , patient had 2 seizures while in route to the hospital, therefore total 6 seizures. Patient has not missed dose of Keppra. She denies any alcohol use or tobacco. She has previously tried Depakote, lithium and Lamictal but all these medications make her "mean". She has been on Keppra for last 3 years. They tried to swipe the VNS magnet, which did not work. EMS flowsheet was reviewed. It was reported by patient's family that patient has 4 seizures [id number] with the last happening in the presence of EMS. It lasted about 15 seconds prior to VNS stopping the seizure. Patient remained in postictal state following as documented and slowly continue to improve cognitively in their presence. Patient was noted to be in under tremendous stress following recent eviction and is also noted to have been suffering from some sinus congestion like sickness. Patient's vitals at the scene was blood pressure 147/83 pulse rate 128, respiration 20, saturation 87% which improved to 90% then 92%. Blood test shows normal CBC, PT PTT, sodium 135 potassium 4.3, normal renal and hepatic panel and UA shows more than 182 RBCs. EKG shows sinus tachycardia. Chest x-ray is normal. CTA cannot exclude PE. Some other findings as per review of IM. Venous Doppler negative for DVT in lower extremities. CT of the pancreas shows borderline heart size. Hepatomegaly at 19.0 cm with at least moderate hepatic steatosis. No pancreatic abnormality. Bilateral L5 pars defects. Review of Systems Constitutional: Reports chills, Reports fever, Reports weight gain Eyes: denies blurred vision, denies diplopia, denies pain Ears: bilateral: decreased hearing, deny: earache Ears, nose, mouth and throat: Denies headache, Denies sore throat, Denies vertigo Cardiovascular: Reports shortness of breath, Denies chest pain Respiratory: Reports cough, Denies excessive sputum Gastrointestinal: Denies abdominal pain, Denies diarrhea, Denies nausea, Denies vomiting Genitourinary: Reports stress incontinence, Denies dysuria, Denies hematuria Musculoskeletal: Denies low back pain, Denies neck pain Integumentary: Denies pruritus, Denies rash Neurological: Reports as per HPI Psychiatric: Reports anxiety, Reports depression Endocrine: Reports fatigue, Reports weight change Past Medical History Past Medical History: Asthma, COPD, Hyperlipidemia, Hypertension, Seizure Disorder, Sleep Apnea/CPAP/BIPAP Additional Past Medical History / Comment(s): NO CPAP USED. MIGRAINE headaches. LAST SEIZURE 08/2023. HX ALCOHOL SYNDROME History of Any Multi-Drug Resistant Organisms: None Reported Past Surgical History: Orthopedic Surgery Additional Past Surgical History / Comment(s): GANGLION CYST REMOVED FROM LT WRIST. vagus nerve stimulator. BILAT KNEE SCOPES Past Anesthesia/Blood Transfusion Reactions: No Reported Reaction Smoking Status: Never smoker - Past Family History Mother Family Medical History: No Reported History Medications and Allergies Home Medications Medication Instructions Recorded Confirmed Type norgestimate-ethinyl estradioL 1 tab PO DAILY 11/06/19 09/13/23 History [Tri-Sprintec Tablet] HYDROcodone/APAP 10-325MG [Wykoff 1 tab PO QID 08/23/22 09/13/23 History 10-325] Rizatriptan Benzoate [Rizatriptan] 10 mg PO BID PRN 08/23/22 09/13/23 History lisinopriL [Zestril] 10 mg PO DAILY 08/23/22 09/13/23 History Meclizine [Antivert] 25 mg PO TID 10/19/22 09/13/23 History levETIRAcetam [Keppra] 1,000 mg PO Q12HR 10/19/22 09/13/23 History Acetaminophen Tab [Tylenol] 650 mg PO Q4HR PRN tab 11/25/22 09/13/23 Rx Baclofen [Lioresal] 20 mg PO BID PRN 09/13/23 09/13/23 History Prazosin HCl 2 mg PO HS 09/13/23 09/13/23 History Prazosin [Minipress] 1 mg PO HS 09/13/23 09/13/23 History Promethazine 6.25MG/5Ml [Phenergan 6.25 mg PO Q6H PRN 09/13/23 09/13/23 History Syrup] Sertraline [Zoloft] 100 mg PO HS 09/13/23 09/13/23 History diazePAM [Valtoco] 10 mg NASAL DIRECTED PRN 09/13/23 09/13/23 History Allergies Allergy/AdvReac Type Severity Reaction Status Date / Time amoxicillin Allergy Rash/Hives Verified 09/13/23 21:00 divalproex sodium Allergy Unknown Verified 09/13/23 21:00 [From Depakote] gabapentin Allergy Unknown Verified 09/13/23 21:00 lamotrigine [From Lamictal] Allergy Unknown Verified 09/13/23 21:00 latex Allergy Unknown Verified 09/13/23 21:00 lithium [Gallitzin] Allergy Unknown Verified 09/13/23 21:00 Penicillins Allergy Rash/Hives Verified 09/13/23 21:00 clindamycin AdvReac Unknown Verified 09/13/23 21:00 Physical Examination - Vital Signs Vital Signs: Vital Signs Temp Pulse Pulse Resp BP BP Pulse Ox 09/15/23 14:00 97.4 F L 74 138/80 91 L 09/15/23 10:09 80 09/15/23 09:53 78 09/15/23 08:00 97.7 F 68 118/73 98 09/15/23 02:00 97.6 F 68 16 116/68 90 L 09/15/23 00:34 77 09/15/23 00:25 80 09/14/23 20:00 98 F 92 20 136/76 92 L Intake and Output 09/15/23 09/15/23 09/15/23 06:59 14:59 22:59 Intake Total 360 Output Total 1500 Balance -1500 360 Intake: Oral 360 Output: Urine 1500 Other: Voiding Method External Catheter # Voids 1 # Bowel Movements 1 Patient is a young female, in no obvious acute distress. She has oxygen by nasal cannula. Patient is alert awake oriented to time place and person. Patient knows it is August 2023 and that she is in [facility] in [place]. Speech and language functions are normal. Patient can name and repeat very well. No aphasia or dysarthria. Attention, concentration and fund of knowledge is adequate. On cranial nerve examination, pupils are equal, round and reacting to light, visual worley are full on confrontation, with no neglect on double simultaneous stimulation. Extraocular muscles are intact with no nystagmus. Face is symmetric, tongue protrudes to the midline. Palatal elevation and sensation normal, hearing and shoulder shrug normal, facial sensation normal. On muscle strength testing, there is no pronator drift and the strength is normal in arms and legs distally and proximally. Deep tendon reflexes are symmetric 1+ in the upper limbs, 1 in the lower limbs and plantars downgoing. Sensory to touch is equal with no neglect on double simultaneous stimulation. Cerebellar function showed no ataxia for [id number] testing. No dysdiadochokinesia. No ataxia for [id number] testing on either side. Tone and bulk of muscles normal. Gait deferred.. On general examination, there is no carotid bruit or murmur, S1-S2 audible. Chest is clear on consultation. Abdomen is soft nontender. No organomegaly, bowel sounds present. Peripheral pulses are present. No peripheral edema. Results - Laboratory Findings CBC and BMP: 09/15/23 08:44 09/15/23 08:44 Abnormal Lab Findings: Abnormal Labs 09/13/23 09/13/23 09/13/23 16:56 16:56 16:56 WBC MCHC RDW Neutrophils # Lymphocytes # 0.4 L Eosinophils # APTT D-Dimer Sodium 135 L Chloride Carbon Dioxide Anion Gap Glucose 108 H Urine Appearance Urine Protein Ur Leukocyte Esterase Urine RBC Urine WBC Urine WBC Clumps Ur Squamous Epith Cells Amorphous Sediment Urine Bacteria Urine Mucus Influenza Type A (PCR) Detected A 09/13/23 09/13/23 09/14/23 17:26 18:58 01:52 WBC MCHC RDW Neutrophils # Lymphocytes # 0.4 L Eosinophils # APTT D-Dimer 1.98 H Sodium Chloride Carbon Dioxide Anion Gap Glucose Urine Appearance Turbid H Urine Protein Trace H Ur Leukocyte Esterase Trace H Urine RBC >182 H Urine WBC 14 H Urine WBC Clumps Occasional H Ur Squamous Epith Cells 16 H Amorphous Sediment Rare H Urine Bacteria Rare H Urine Mucus Many H Influenza Type A (PCR) 09/14/23 09/14/23 09/15/23 08:06 14:22 08:44 WBC 11.11 H MCHC 31.3 L RDW 15.4 H Neutrophils # 9.81 H Lymphocytes # 0.80 L Eosinophils # 0 L APTT >200.0 H* D-Dimer Sodium Chloride 111 H Carbon Dioxide 19 L Anion Gap Glucose 165 H Urine Appearance Urine Protein Ur Leukocyte Esterase Urine RBC Urine WBC Urine WBC Clumps Ur Squamous Epith Cells Amorphous Sediment Urine Bacteria Urine Mucus Influenza Type A (PCR) 09/15/23 08:44 WBC MCHC RDW Neutrophils # Lymphocytes # Eosinophils # APTT D-Dimer Sodium Chloride Carbon Dioxide 19.9 L Anion Gap 12.10 H Glucose 184 H Urine Appearance Urine Protein Ur Leukocyte Esterase Urine RBC Urine WBC Urine WBC Clumps Ur Squamous Epith Cells Amorphous Sediment Urine Bacteria Urine Mucus Influenza Type A (PCR) Assessment and Plan Assessment: * Cluster of breakthrough seizures, likely because of acute febrile illness. Patient had high temperature, and hypoxemia from influenza, probably lowering seizure threshold, resulting in breakthrough seizure. * Seizure disorder since childhood * Vagal nerve stimulator placement * Acute influenza * COPD * Hypertension * Hyperlipidemia Plan: * Patient's breakthrough seizures were likely due to acute febrile illness. For short while, we will increase dose of Keppra to 1500 mg twice daily for 7 days, and then may bring back to Keppra 1000 mg twice daily. * Check Keppra level. Results of Keppra level can be followed up with her neurologist outpatient. * Patient is aware of [place] state law of no driving unless seizure-free for 6 months, climbing ladders or operating dangerous machinery or unsupervised swimming. * Neurologically clear for discharge. Thank you for the consult. Addendum: Keppra level 13.1 (3-60) As the levels are somewhat on the lower limits of normal, may continue Keppra 1500 mg twice daily, if agreed by her local neurologist. Neurologically clear.
[2023-09-16] MEDS: ACETAMINOPHEN TAB 325 MG TAB PO PRN (01:17)
[2023-09-16 07:53] VITALS: BP 135/79; TEMP 98.1
[2023-09-16 08:59] VITALS: RESP 21
[2023-09-16 10:48] LABS: Basophils # (A) 0.01 X 10*3/uL (0.00-0.10); Basophils % (A) 0.1 %; Eosinophils # (A) 0.01 X 10*3/uL (0.04-0.35); Eosinophils % (A) 0.1 %; HCT 38.4 % (37.2-46.3); Lymphocytes # (A) 0.89 X 10*3/uL (0.90-5.00); Lymphocytes % (A) 7.1 %; MCHC 31.3 g/dL (32.0-37.0); MCV 86.3 FL (80.0-97.0); Mean Platelet Volume 10.8 FL (9.5-12.2); Monocytes # (A) 0.33 X 10*3/uL (0.20-1.00); Monocytes % (A) 2.6 %; NRBC Per 100 WBC 0 X 10*3/uL (0.00-0.01); Neutrophils # (A) 11.21 X 10*3/uL (1.80-7.70); Neutrophils % (A) 89.8 %; Platelet Count 304 X 10*3/uL (140-440); RBC 4.45 X 10*6/uL (4.10-5.20); RDW 15.6 % (11.5-14.5); WBC 12.49 X 10*3/uL (4.50-10.00)
[2023-09-16 11:01] LABS: Blood Urea Nitrogen 14.7 mg/dL (9.0-27.0); Chloride 108 mmol/L (96-109); Glucose 149 mg/dL (70-110); Magnesium 2.2 mg/dL (1.5-2.4); Potassium 4.3 mmol/L (3.5-5.5); Sodium 143 mmol/L (135-145)
[2023-09-16 11:39] VITALS: PULSE 78
--- NOTE | 2023-09-16 13:16 | P.PN ---
Subjective Progress Note Date: 09/16/23 I am seeing this patient in consultation today September 14, 2023 in the emergency room after the patient presented with breakthrough seizures and flulike symptoms. Patient is a 33-year-old white female with past medical history significant for seizure disorder with implanted nerve stimulator, asthma/COPD, hypertension, morbid obesity, grains, anxiety depression, other things. Patient presented to emergency room yesterday evening after being witnessed to have multiple breakthrough seizures by her significant other. She is on Keppra. Not responsive to vagal stimulator. Patient was noted to be febri le on arrival to the emergency room with a Tmax of 102.9 F. She reports 3 days of progressively worsening shortness of breath, fever, cough with yellow sputum production. She has had some associated nausea and vomiting and reduced appetite. Denies any hematemesis, abdominal pain, or diarrhea. She was positive for influenza A on arrival, and has been started on Tamiflu. Her D- dimer was also noted to be elevated on arrival. A follow-up chest CT was performed and no definitive central pulmonary embolism was identified. Unable to exclude segmental or segment segmental emboli due to poor IV contrast enhancement. She is currently lying in bed, on 2 L/min nasal cannula, in no acute distress. She is alert and able to answer my questions. No further severe like activity reported by nursing staff. She denies any history of thromboembolism. Her father has had a DVT. She is morbidly obese and sedentary at home. She does take combined hormonal oral contraceptives mostly for dysmenorrhea. Denies any recent surgeries, prolonged travel, trauma or malignancy. Denies any unilateral leg edema. Denies any chest pain or hemoptysis. She was tachycardic on arrival, however, likely secondary to fever. Her symptoms are more likely related to influenza A infection and exacerbation of the patient's known asthma/COPD. Patient has history of asthma and reportedly COPD. She has never smoked, but was exposed to second hand smoke as a child. She uses a PRN albuterol inhaler at home. Reports that she suppose to be taking Advair, but cannot afford it. Patient was started on a high intensity heparin infusion per protocol on arrival. CBC on arrival unremarkable. No leukocytosis. Baseline coagulation profile WDL. BMP on arrival also unremarkable. Vital signs are stable. The patient is seen today September 15, 2023 and follow-up on the regular medical floor. She is currently resting comfortably in bed. Awake and alert in no acute distress. Maintaining O2 saturations in the 90s on 4 L/min per nasal cannula. She has normal saline at 75 MLS per hour. She is continued on DuoNeb inhalations, Solu-Medrol, Symbicort, Tamiflu. Doppler of the lower extremities revealed no evidence of DVT. CT scan of the abdomen revealed hepatomegaly at 19.0 cm with at least moderate hepatic steatosis. Limited exam due to large body habitus and prominent breathing motion. No discrete pancreatic abnormality is seen. White count 11.1. Hemoglobin 12.4. Platelets 289. Sodium 140. Potassium 3.8. Bicarb 20. BUN 9. Creatinine 0.7. Glucose 184. Stool for occult blood negative. The patient is seen today September 16, 2023 in follow-up on the regular medical floor. She is awake and alert in no acute distress. Resting comfortably in bed. No worsening shortness of breath, cough or congestion. Maintaining O2 saturations in the 90s on room air. She has been afebrile. Hemodynamically stable. She is continued on DuoNeb and elations, Symbicort, Medrol. Remains on Tamiflu. Heparin for DVT prophylaxis. White count 12.4. Hemoglobin 12.0. Platelets 304. Sodium 143. Potassium 4.3. Bicarb 21. BUN 15. Creatinine 0.7. Glucose 149. Objective - Vital Signs Vital signs: Vital Signs Temp 98.1 F 09/16/23 07:02 Pulse 78 09/16/23 11:18 Resp 21 09/16/23 08:29 BP 135/79 09/16/23 07:02 Pulse Ox 91 L 09/16/23 08:29 FiO2 Intake & Output 09/15/23 09/16/23 09/16/23 18:59 06:59 18:59 Intake Total 360 Balance 360 Intake: Oral 360 Other: # Voids 3 # Bowel Movements 1 - Exam GENERAL EXAM: Alert, pleasant 33-year-old morbidly obese female, resting in bed, on room air, comfortable in no apparent distress. HEAD: Normocephalic and atraumatic EYES: Normal reaction of pupils, equal size. NOSE: Clear with pink turbinates. THROAT: No erythema or exudates. NECK: No masses, no JVD. CHEST: No chest wall deformity. LUNGS: Equal air entry with mild expiratory wheezes heard throughout the posterior lung worley. No conversational dyspnea. CVS: S1 and S2 normal with no audible murmur, regular rhythm. No extra heart sounds ABDOMEN: No hepatosplenomegaly, active bowel sounds, no guarding or rigidity. SPINE: No scoliosis or deformity SKIN: No rashes CENTRAL NERVOUS SYSTEM: No focal deficits, tone is normal in all 4 extremities. EXTREMITIES: There is no peripheral edema, clubbing, or cyanosis. Peripheral pulses are intact. - Labs CBC & Chem 7: 09/16/23 07:34 09/16/23 07:34 Labs: Abnormal Lab Results - Last 24 Hours (Table) 09/16/23 09/16/23 Range/Units 07:34 07:34 WBC 12.49 H (4.50-10.00) X 10*3/uL MCHC 31.3 L (32.0-37.0) g/dL RDW 15.6 H (11.5-14.5) % Neutrophils # 11.21 H (1.80-7.70) X 10*3/uL Lymphocytes # 0.89 L (0.90-5.00) X 10*3/uL Eosinophils # 0.01 L (0.04-0.35) X 10*3/uL Carbon Dioxide 21.0 L (21.6-31.8) mmol/L Anion Gap 14.00 H (4.00-12.00) mmol/L BUN/Creatinine Ratio 21.00 H (12.00-20.00) Ratio Glucose 149 H (70-110) mg/dL Assessment and Plan Assessment: Breakthrough seizures History of seizure disorder, status post vagal stimulator Acute hypoxemic respiratory failure, likely secondary to exacerbation of asthma/COPD and acute influenza A infection, recovered and on room air Elevated D-dimer, chest CTA did not show any obvious central pulmonary embolism, unable to completely rule out segmental and subsegmental pulmonary emboli, although, clinical suspicion is low Morbid obesity, with a BMI of 55.5 kg/m Obstructive sleep apnea, without home CPAP History of schizoaffective disorder/bipolar disorder History of polysubstance abuse History of migraines Plan: The patient was seen and evaluated Labs and medications reviewed Continued on bronchodilators, steroids Continued on Tamiflu Probable discharge in the a.m. I have personally seen and examined the patient, performed the documentation and the assessment and plan as written. Number of minutes spent on the visit: 10.
--- NOTE | 2023-09-16 16:35 | P.DS ---
Providers Date of admission: 09/13/23 20:47 Expected date of discharge: 09/16/23 Attending physician: Monse Lacey MD Consults: 09/14/23 01:29 Consult Physician Routine Consulting Provider: Javier Hendricks Consult Reason/Comments: hypoxemia , Influenza A, possible PE Do you want consulting provider notified?: Yes 09/14/23 15:39 Consult Physician Routine Consulting Provider: Gunner Mojica Consult Reason/Comments: breakthrough seizures Do you want consulting provider notified?: Yes Primary care physician: Stated None Hospital Course: Acute hypoxic respiratory failure Acute influenza A infection Acute COPD/asthma exacerbation Breakthrough seizures Epilepsy Hypertension GERD Depression Hospital Course: 33-year-old female with history of asthma/COPD, seizure disorder initially presented for multiple breakthrough seizures patient is also experiencing 3 days of cold symptoms. While in the ED, patient was hypoxic down to 80s. Laboratory workup showed elevated D-dimer 1.98, CBC unremarkable, influenza A positive. Urinalysis was dirty. CTA chest did not show any PE, but could not exclude segmental or subsegmental pulmonary embolism. Lower extremity venous Dopplers did not show any DVTs. Patient was initially on heparin drip, which is now discontinued. Pulmonology was also consulted. Pt did not have any further seizures. She was discharged home with increased dose of keppra due to low normal level as noted by Neurology. Pt was discharged home with 4 more doses of tamiflu, 2 more days of steroids, and new script for symbicort. She should f/u with PCP. I spent 35 minutes coordinating this discharge on 09/16 Gen: In NAD, non-toxic HEENT: normocephalic, atraumatic, hearing acuity is intant, mucous membranes moist CVS: perfusing all extremities well, no pitting edema, Respiratory: symmetric chest expansion, no accessory muscle use, GI: soft, NTTP, ND, : no suprapubic tenderness, no CVA tenderness MSK/Derm: no rashes, cyanosis Neuro: CN II-XII intact, no motor weakness, Psych: cooperative, euthymic mood, judgment and insight is intact Patient Condition at Discharge: Good Plan - Discharge Summary Discharge Rx Participant: No New Discharge Prescriptions: New levETIRAcetam [Keppra] 1,500 mg PO Q12HR #120 tab Oseltamivir [Tamiflu] 75 mg PO Q12HR #4 cap Ibuprofen [Motrin] 400 mg PO Q6HR PRN tab PRN Reason: Mild Pain Or Fever > 100.5 Budesonide-Formot 160-4.5 Mcg [Symbicort 160-4.5 Mcg Inhaler] 2 puff INHALATION RT-BID #1 each predniSONE [Deltasone] 30 mg PO DAILY #3 tab Continue norgestimate-ethinyl estradioL [Tri-Sprintec Tablet] 1 tab PO DAILY Rizatriptan Benzoate [Rizatriptan] 10 mg PO BID PRN PRN Reason: Migraine Headache lisinopriL [Zestril] 10 mg PO DAILY Meclizine [Antivert] 25 mg PO TID Acetaminophen Tab [Tylenol] 650 mg PO Q4HR PRN tab PRN Reason: Mild Pain (Scale 1 To 3) Prazosin [Minipress] 1 mg PO HS Prazosin HCl 2 mg PO HS Promethazine 6.25MG/5Ml [Phenergan Syrup] 6.25 mg PO Q6H PRN PRN Reason: Cough Baclofen [Lioresal] 20 mg PO BID PRN PRN Reason: Muscle Spasm HYDROcodone/APAP 10-325MG [Centerpoint 10-325] 1 tab PO QID Sertraline [Zoloft] 100 mg PO HS diazePAM [Valtoco] 10 mg NASAL DIRECTED PRN PRN Reason: Seizures Discontinued levETIRAcetam [Keppra] 1,000 mg PO Q12HR Discharge Medication List norgestimate-ethinyl estradioL [Tri-Sprintec Tablet] 1 tab PO DAILY 11/06/19 [History] HYDROcodone/APAP 10-325MG [Centerpoint 10-325] 1 tab PO QID 08/23/22 [History] Rizatriptan Benzoate [Rizatriptan] 10 mg PO BID PRN 08/23/22 [History] lisinopriL [Zestril] 10 mg PO DAILY 08/23/22 [History] Meclizine [Antivert] 25 mg PO TID 10/19/22 [History] Acetaminophen Tab [Tylenol] 650 mg PO Q4HR PRN tab 11/25/22 [Rx] Baclofen [Lioresal] 20 mg PO BID PRN 09/13/23 [History] Prazosin HCl 2 mg PO HS 02/19/24 [History] Prazosin [Minipress] 1 mg PO HS 09/13/23 [History] Promethazine 6.25MG/5Ml [Phenergan Syrup] 6.25 mg PO Q6H PRN 09/13/23 [History] Sertraline [Zoloft] 100 mg PO HS 09/13/23 [History] diazePAM [Valtoco] 10 mg NASAL DIRECTED PRN 09/13/23 [History] Budesonide-Formot 160-4.5 Mcg [Symbicort 160-4.5 Mcg Inhaler] 2 puff INHALATION RT-BID #1 each 09/16/23 [Rx] Ibuprofen [Motrin] 400 mg PO Q6HR PRN tab 09/16/23 [Rx] Oseltamivir [Tamiflu] 75 mg PO Q12HR #4 cap 09/16/23 [Rx] levETIRAcetam [Keppra] 1,500 mg PO Q12HR #120 tab 09/16/23 [Rx] predniSONE [Deltasone] 30 mg PO DAILY #3 tab 09/16/23 [Rx] Follow up Appointment(s)/Referral(s): None,Stated [Primary Care Provider] - 1-2 days Patient Instructions/Handouts: Seizure/Epilepsy Discharge Instructions & Follow-Up, Influenza (ED) Discharge Disposition: HOME SELF-CARE
[2023-09-17] MEDS ORDERED: predniSONE 10 MG TAB PO SCH (09:00)
[2023-09-22] MEDS ORDERED: levETIRAcetam 500 MG TAB PO SCH (21:00)
== END 2023-09-16 15:20 | disposition home or self-care (01) | DRG 133 ==
LOC: EC 16:39 → OBSVTOIN 20:47 → 4SSUR 20:47
PROVIDERS: ADMIT Family Medicine; ATTEND Family Medicine
DX: J96.01 Acute respiratory failure with hypoxia (principal); G40.419 Other generalized epilepsy and epileptic syndromes, intractable, without status epilepticus; G47.33 Obstructive sleep apnea (adult) (pediatric); E66.01 Morbid (severe) obesity due to excess calories; Z68.43 Body mass index [BMI] 50.0-59.9, adult; J10.1 Influenza due to other identified influenza virus with other respiratory manifestations; R79.1 Abnormal coagulation profile; J44.1 Chronic obstructive pulmonary disease with (acute) exacerbation; J45.901 Unspecified asthma with (acute) exacerbation; I10 Essential (primary) hypertension; K21.9 Gastro-esophageal reflux disease without esophagitis; F32.A Depression, unspecified; F25.9 Schizoaffective disorder, unspecified; F41.9 Anxiety disorder, unspecified; K76.0 Fatty (change of) liver, not elsewhere classified; N94.6 Dysmenorrhea, unspecified; Z78.9 Other specified health status; Z79.899 Other long term (current) drug therapy; Z96.82 Presence of neurostimulator; Z88.5 Allergy status to narcotic agent; Z88.0 Allergy status to penicillin; Z88.8 Allergy status to other drugs, medicaments and biological substances; Z91.040 Latex allergy status; Z72.3 Lack of physical exercise
CPT/HCPCS: 36415; 71046; 71275; 74160; 80048; 80053; 80177; 81001; 82272; 83605; 83735; 85025; 85379; 85610; 85730; 87636; 93005; 93970; 94640; 94644; 96361; 96365; 96366; 96375; 99285

== ENCOUNTER 2023-10-04 16:18 | Emergency (ER) | payer OTHER ==
--- NOTE | 2023-10-04 16:44 | ED ---
General Adult HPI - General Stated complaint: SOB,Cough Time Seen by Provider: 10/04/23 16:44 - History of Present Illness Initial comments: 33-year-old female with past medical history significant for COPD presenting to the ED with a chief complaint of shortness of breath. Patient recently discharged from this facility secondary to COPD exacerbation secondary to influenza on 09/21/23. Reports feeling well for a few days after discharge however reports over the last few days started to feel shortness of breath with some cough. Associated nausea. No chest pain. No other complaints at this time. - Related Data Home Medications Medication Instructions Recorded Confirmed norgestimate-ethinyl estradioL 1 tab PO DAILY 11/06/19 09/19/23 [Tri-Sprintec Tablet] HYDROcodone/APAP 10-325MG [Delaplane 1 tab PO QID 08/23/22 09/19/23 10-325] Rizatriptan Benzoate [Rizatriptan] 10 mg PO BID PRN 08/23/22 09/19/23 lisinopriL [Zestril] 10 mg PO DAILY 08/23/22 09/19/23 Meclizine [Antivert] 25 mg PO TID 10/19/22 09/19/23 Baclofen [Lioresal] 20 mg PO BID PRN 09/13/23 09/19/23 Prazosin HCl 2 mg PO HS 09/13/23 09/19/23 Prazosin [Minipress] 1 mg PO HS 09/13/23 09/19/23 Promethazine 6.25MG/5Ml [Phenergan 6.25 mg PO Q6H PRN 09/13/23 09/19/23 Syrup] Sertraline [Zoloft] 100 mg PO HS 09/13/23 09/19/23 diazePAM [Valtoco] 10 mg NASAL DIRECTED PRN 09/13/23 09/19/23 ARIPiprazole [Abilify] 15 mg PO DAILY 09/19/23 09/19/23 busPIRone HCL [Buspar] 30 mg PO BID 09/19/23 09/19/23 Previous Rx's Medication Instructions Recorded Acetaminophen Tab [Tylenol] 650 mg PO Q4HR PRN tab 11/25/22 Budesonide-Formot 160-4.5 Mcg 2 puff INHALATION RT-BID #1 each 09/16/23 [Symbicort 160-4.5 Mcg Inhaler] Ibuprofen [Motrin] 400 mg PO Q6HR PRN tab 09/16/23 levETIRAcetam [Keppra] 1,500 mg PO Q12HR #120 tab 09/16/23 Famotidine [Pepcid] 20 mg PO DAILY #30 tablet 09/21/23 Ipratropium-Albuterol Nebulize 3 ml INHALATION QID #120 each 09/21/23 [Duoneb 0.5 mg-3 mg/3 ml Soln] guaiFENesin-DM 100-10MG/5ML 10 ml PO Q6HR PRN ml 09/21/23 [Robitussin DM] predniSONE 10 mg PO DIRECTED #30 tab 09/21/23 predniSONE [Deltasone] 20 mg PO BID 5 Days #10 tab 10/04/23 Allergies Allergy/AdvReac Type Severity Reaction Status Date / Time amoxicillin Allergy Rash/Hives Verified 09/19/23 19:48 divalproex sodium Allergy Unknown Verified 09/19/23 19:48 [From Depakote] gabapentin Allergy Unknown Verified 09/19/23 19:48 lamotrigine [From Lamictal] Allergy Unknown Verified 09/19/23 19:48 latex Allergy Unknown Verified 09/19/23 19:48 lithium [[place]] Allergy Unknown Verified 09/19/23 19:48 Penicillins Allergy Rash/Hives Verified 09/19/23 19:48 clindamycin AdvReac Unknown Verified 09/19/23 19:48 Review of Systems ROS Statement: Those systems with pertinent positive or pertinent negative responses have been documented in the HPI. ROS Other: All systems not noted in ROS Statement are negative. Past Medical History Past Medical History: Asthma, COPD, Hyperlipidemia, Hypertension, Seizure Disorder, Sleep Apnea/CPAP/BIPAP Additional Past Medical History / Comment(s): NO CPAP USED. MIGRAINE headaches. LAST SEIZURE 08/2023. HX ALCOHOL SYNDROME History of Any Multi-Drug Resistant Organisms: None Reported Past Surgical History: Orthopedic Surgery Additional Past Surgical History / Comment(s): GANGLION CYST REMOVED FROM LT WRIST. vagus nerve stimulator. BILAT KNEE SCOPES Past Anesthesia/Blood Transfusion Reactions: No Reported Reaction Past Psychological History: Bipolar, Schizophrenia Smoking Status: Never smoker - Past Family History Mother Family Medical History: No Reported History General Exam - General Exam Comments Initial Comments: Visual Physical Exam Vital signs reviewed General: Well-appearing, nontoxic, no acute distress. Head: Normocephalic, atraumatic Eyes: PERRLA, EOMI ENT: Airway patent Chest: Nonlabored breathing Skin: No visual rash, normal skin tone Neuro: Alert and oriented 3 Musculoskeletal: No gross abnormalities General appearance: alert, in no apparent distress Eye exam: Present: normal appearance Respiratory exam: Present: wheezes. Absent: respiratory distress, accessory muscle use Cardiovascular Exam: Present: normal rhythm GI/Abdominal exam: Present: soft, normal bowel sounds. Absent: distended, tenderness, guarding, rebound, rigid Neurological exam: Present: alert, oriented X3 Skin exam: Present: warm, dry Course Vital Signs 10/04/23 10/04/23 16:52 18:21 Temperature 98.5 F Pulse Rate 120 H Respiratory 20 26 H Rate Blood Pressure 135/84 O2 Sat by Pulse 96 Oximetry Medical Decision Making - Medical Decision Making Quicknote portion performed. Signed Johnson Galan PA-C Was pt. sent in by a medical professional or institution ([facility], [facility], urgent care, hospital, or snf...) When possible be specific @ -No Did you speak to anyone other than the patient for history (EMS, parent, family, police, friend...)? What history was obtained from this source @ -No Did you review nursing and triage notes (agree or disagree)? Why? @ -I reviewed and agree with nursing and triage notes Were old charts reviewed (outside hosp., previous admission, EMS record, old EKG, old radiological studies, urgent care reports/EKG's, snf records)? Report findings @ -Prior visit reviewed. For further details please see HPI. Differential Diagnosis (chest pain, altered mental status, abdominal pain women, abdominal pain men, vaginal bleeding, weakness, fever, dyspnea, syncope, headache, dizziness, GI bleed, back pain, seizure, CVA, palpatations, mental health, musculoskeletal)? @ -Differential Dyspnea: Coronary syndrome, arrhythmia, tamponade, asthma, COPD, pulmonary embolism, pneumonia, pneumothorax, pulmonary effusion, anaphylaxis, diabetic ketoacidosis, flailed chest, pulmonary contusion, diaphragmatic rupture, anemia, neuromuscular, this is not meant to be an all-inclusive list. EKG interpreted by me (3pts min.). @ -None X-rays interpreted by me (1pt min.). @ -Chest x-ray interpreted by me which showed a generalized hazy appearance bilaterally. CT interpreted by me (1pt min.). @ -None done U/S interpreted by me (1pt. min.). @ -None done What testing was considered but not performed or refused? (CT, X-rays, U/S, labs)? Why? @ -None What meds were considered but not given or refused? Why? @ -None Did you discuss the management of the patient with other professionals (professionals i.e. DrShweta, PA, [facility], lab, RT, psych nurse, criminal justice social worker, mat machine operator, teacher, fire officer, patient case manager)? Give summary @ -No Was smoking cessation discussed for >3mins.? @ -No Was critical care preformed (if so, how long)? @ -No Were there social determinants of health that impacted care today? How? (Homelessness, low income, unemployed, alcoholism, drug addiction, transportation, low edu. Level, literacy, decrease access to med. care, residential, rehab)? @ -No Was there de-escalation of care discussed even if they declined (Discuss DNR or withdrawal of care, Hospice)? DNR status @ -No What co-morbidities impacted this encounter? (DM, HTN, Smoking, COPD, CAD, Cancer, CVA, ARF, Chemo, Hep., AIDS, mental health diagnosis, sleep apnea, morbid obesity)? @ -Asthma/COPD Was patient admitted / discharged? Hospital course, mention meds given and route, prescriptions, significant lab abnormalities, going to OR and other pertinent info. @ -Discharge Patient initially seen by myself as a quick note in triage. 33-year-old female presented to the ED with complaints of cough and shortness of breath for the past 2 days. Laboratory studies reviewed. Patient positive for RSV. Chest x- ray showed a generalized hazy appearance. Is likely secondary to viral infection. On examination patient has some wheezes bilaterally however has normal respiratory rate and has no evidence of respiratory distress. Patient is saturating at 96% on room air. Patient provided breathing treatment here and given a dose of steroids here as well. Discharged home with prescription for prednisone 40 mg for the next 5 days. Discussed strict return precautions with patient who verbalized agreement. Undiagnosed new problem with uncertain prognosis? @ -No Drug Therapy requiring intensive monitoring for toxicity (Heparin, Nitro, Insulin, Cardizem)? @ -No Were any procedures done? @ -No Diagnosis/symptom? @ -RSV, asthma exacerbation Acute, or Chronic, or Acute on Chronic? @ -Acute Uncomplicated (without systemic symptoms) or Complicated (systemic symptoms)? @ -Complicated Side effects of treatment? @ -No Exacerbation, Progression, or Severe Exacerbation? @ -Exacerbation Poses a threat to life or bodily function? How? (Chest pain, [place], [place], pneumonia, PE, COPD, DKA, ARF, appy, cholecystitis, CVA, Diverticulitis, Homicidal, Suicidal, threat to staff... and all critical care pts) @ -Unlikely - Lab Data Lab Results 10/04/23 Range/Units 16:56 Influenza Type A (PCR) Not Detected (Not Detectd) Influenza Type B (PCR) Not Detected (Not Detectd) RSV (PCR) Detected A (Not Detectd) SARS-CoV-2 (PCR) Not Detected (Not Detectd) Disposition Clinical Impression: RSV infection, Asthma exacerbation Disposition: HOME SELF-CARE Condition: Good Instructions (If sedation given, give patient instructions): Respiratory Syncytial Virus (ED) Additional Instructions: Please return if you are starting to develop any worsening symptoms. Follow-up with your primary care provider. Prescriptions: predniSONE [Deltasone] 20 mg PO BID 5 Days #10 tab Is patient prescribed a controlled substance at d/c from ED?: No Referrals: None,Stated [Primary Care Provider] - 1-2 days Time of Disposition: 18:33
--- NOTE | 2023-10-04 17:43 | XR ---
EXAMINATION TYPE: XR chest 2V DATE OF EXAM: 10/04/2023 5:24 PM CLINICAL INDICATION:Female, 33 years old with history of dyspnea r/o pna; [facility] COMPARISON: Chest radiographs from 09/19/2023 TECHNIQUE: XR chest 2V Frontal and lateral views of the chest. FINDINGS: Lungs/Pleura: There is no evidence of pleural effusion, focal consolidation, or pneumothorax. Pulmonary vascularity: Unremarkable. Heart/mediastinum: Cardiomediastinal silhouette is enlarged and stable. Musculoskeletal: No acute osseous pathology. Electronic device with bleed terminating superiorly. IMPRESSION: Low lung volumes with a generalized hazy appearance which could represent atelectasis versus pulmonar y edema correlate with serum BNP.
[2023-10-04] MEDS: IPRATROPIUM-ALBUTEROL 3 ML NEB INHALATION STA (18:34)
[2023-10-04] MEDS: predniSONE 20 MG TAB PO STA (18:34)
[2023-10-04 18:56] VITALS: BP 147/76; PULSE 115; RESP 26; TEMP 98.4
== END 2023-10-04 18:55 | disposition home or self-care (01) ==
LOC: EC 16:18
DX: J45.901 Unspecified asthma with (acute) exacerbation (principal); B97.4 Respiratory syncytial virus as the cause of diseases classified elsewhere; I10 Essential (primary) hypertension; G47.30 Sleep apnea, unspecified; F31.9 Bipolar disorder, unspecified; Z79.899 Other long term (current) drug therapy; Z88.0 Allergy status to penicillin; Z91.040 Latex allergy status; Z88.8 Allergy status to other drugs, medicaments and biological substances; Z20.822 Contact with and (suspected) exposure to COVID-19
CPT/HCPCS: 99285; 94640; 87636; 71046; J7512

== ENCOUNTER → 2023-11-29 | Outpatient (CLI) | payer OTHER ==
--- NOTE | 2023-11-29 18:04 | CT ---
EXAMINATION TYPE: CT cervical spine wo con CT DLP: 1122 mGycm, Automated exposure control for dose reduction was used. DATE OF EXAM: CT brain and C-spine of 10/06/2022 COMPARISON: . CLINICAL INDICATION:Female, 33 years old with history of M54.2 CERVICALGIA, M50.30 OTHER CERVICAL DIS C DEGENERATION; PH[facility], Cervicalgia, disc degeneration TECHNIQUE: Axial CT images from the skull base to the inferior aspect of T2 we obtained without intra venous contrast. Coronal and sagittal reformatted images were also reviewed. Contrast used: mL of , (if blank None) Oral contrast used: (if blank None) FINDINGS: Fracture: None. Osseous structures: Unremarkable Vertebral alignment: Alignment within normal limits. Disc: Multilevel degenerative disc disease seen within worse area being C6-C7. There is loss of disc height at C6-C7 and to a lesser degree at C7-T1. Disc osteophyte complexes are seen in the problems. No resulting central canal stenosis. Spinal canal/Neural Foramina: No evidence of significant spinal canal narrowing. No evidence for sign ificant neural foraminal stenosis. Neck soft tissues: Prevertebral soft tissues are within normal limits. Other: The airway is patent. The lung apices are clear. Mild to moderate paranasal sinus disease IMPRESSION: 1. No evidence of cervical spine fracture. 2. Multilevel degenerative disc disease. 3. Mild to moderate paranasal sinus disease
== END | disposition home or self-care (01) ==
LOC: RADCTMAIN 14:13
PROVIDERS: ATTEND Psychiatry & Neurology Neurology
DX: M50.323 Other cervical disc degeneration at C6-C7 level (principal); J34.89 Other specified disorders of nose and nasal sinuses
CPT/HCPCS: 72125

== ENCOUNTER 2025-02-21 21:38 | Emergency (ER) | payer OTHER ==
[2025-02-21 22:59] LABS: Basophils # (A) 0.04 10*3/uL (0.00-0.10); Basophils % (A) 0.6 %; Eosinophils # (A) 0.06 10*3/uL (0.04-0.35); Eosinophils % (A) 1.0 %; HCT 34.5 % (37.2-46.3); HGB 11.7 g/dL (12.0-15.0); Lymphocytes # (A) 1.46 10*3/uL (0.90-5.00); Lymphocytes % (A) 23.1 %; MCH 30.0 pg (27.0-32.0); MCHC 33.9 g/dL (32.0-37.0); MCV 88.5 fL (80.0-97.0); Monocytes # (A) 0.71 10*3/uL (0.20-1.00); Monocytes % (A) 11.3 %; Neutrophils # (A) 4.03 10*3/uL (1.80-7.70); Neutrophils % (A) 63.8 %; Platelet Count 258 10*3/uL (140-440); RBC 3.90 10*6/uL (4.10-5.20); RDW 14.0 % (11.5-14.5); WBC 6.31 10*3/uL (4.50-10.00)
--- NOTE | 2025-02-21 23:28 | ED ---
General Adult HPI - General Source: EMS Mode of arrival: EMS Limitations: no limitations <Birgit Torres - Last Filed: 02/22/25 23:14> <Audrey Ricardo - Last Filed: 02/23/25 03:13> - General Chief complaint: Seizure Stated complaint: Seizure Time Seen by Provider: 02/21/25 21:54 - History of Present Illness Initial comments: 35-year-old female with history of seizure disorder presenting for evaluation after having 9 seizures today according to her . The patient is very fatigued at this time, reports that she appears consistent with her usual postictal state. She is able to answer my yes and no questions and follow commands. She did lose control of her bladder. Did not bite her tongue. She does have a VNS which they used 3 times which they were told was the max they can use it during an episode. No chest pain or difficulty breathing. states that she did not hit her head. She is having diffuse muscle soreness. (Birgit Torres) - Related Data Home Medications Medication Instructions Recorded Confirmed norgestimate-ethinyl estradioL 1 tab PO DAILY 11/06/19 09/19/23 [Tri-Sprintec Tablet] HYDROcodone/APAP 10-325MG [[place] 1 tab PO QID 08/23/22 09/19/23 10-325] Rizatriptan Benzoate [Rizatriptan] 10 mg PO BID PRN 08/23/22 09/19/23 lisinopriL [Zestril] 10 mg PO DAILY 08/23/22 09/19/23 Meclizine [Antivert] 25 mg PO TID 10/19/22 09/19/23 Baclofen [Lioresal] 20 mg PO BID PRN 09/13/23 09/19/23 Prazosin HCl [Minipress] 2 mg PO HS 09/13/23 09/19/23 Prazosin [Minipress] 1 mg PO HS 09/13/23 09/19/23 Promethazine 6.25MG/5Ml [Phenergan 6.25 mg PO Q6H PRN 09/13/23 09/19/23 Syrup] Sertraline [Zoloft] 100 mg PO HS 09/13/23 09/19/23 diazePAM [Valtoco] 10 mg NASAL DIRECTED PRN 09/13/23 09/19/23 ARIPiprazole [Abilify] 15 mg PO DAILY 09/19/23 09/19/23 busPIRone HCL [Buspar] 30 mg PO BID 09/19/23 09/19/23 Previous Rx's Medication Instructions Recorded Acetaminophen Tab [Tylenol] 650 mg PO Q4HR PRN tab 11/25/22 Budesonide-Formot 160-4.5 Mcg 2 puff INHALATION RT-BID #1 each 09/16/23 [Symbicort 160-4.5 Mcg Inhaler] Ibuprofen [Motrin] 400 mg PO Q6HR PRN tab 09/16/23 levETIRAcetam [Keppra] 1,500 mg PO Q12HR #120 tab 09/16/23 Famotidine [Pepcid] 20 mg PO DAILY #30 tablet 09/21/23 Ipratropium-Albuterol Nebulize 3 ml INHALATION QID #120 each 09/21/23 [Duoneb 0.5 mg-3 mg/3 ml Soln] guaiFENesin-DM 100-10MG/5ML 10 ml PO Q6HR PRN ml 09/21/23 [Robitussin DM] predniSONE 10 mg PO DIRECTED #30 tab 09/21/23 predniSONE [Deltasone] 20 mg PO BID 5 Days #10 tab 10/04/23 Codeine Phosphate/Guaifenesin 5 ml PO Q6H 3 Days #60 ml 09/02/24 [Codeine Phosphate/Guaifenesin 10-100 mg/5 ml] Diphenoxylate HCl/Atropine 1 each PO TID PRN #10 tab 09/02/24 [Lomotil 2.5-0.025 mg Tablet] Metoclopramide [Reglan] 10 mg PO TID PRN #30 tab 09/02/24 Allergies Allergy/AdvReac Type Severity Reaction Status Date / Time amoxicillin Allergy Rash/Hives Verified 09/02/24 16:01 divalproex sodium Allergy Unknown Verified 09/02/24 16:01 [From Depakote] gabapentin Allergy Unknown Verified 09/02/24 16:01 lamotrigine [From Lamictal] Allergy Unknown Verified 09/02/24 16:01 latex Allergy Unknown Verified 09/02/24 16:01 lithium [[place]] Allergy Unknown Verified 09/02/24 16:01 Penicillins Allergy Rash/Hives Verified 09/02/24 16:01 clindamycin AdvReac Unknown Verified 09/02/24 16:01 Review of Systems ROS Other: All systems not noted in ROS Statement are negative. <Birgit Torres - Last Filed: 02/22/25 23:14> ROS Other: All systems not noted in ROS Statement are negative. <Audrey Ricardo - Last Filed: 02/23/25 03:13> ROS Statement: Those systems with pertinent positive or pertinent negative responses have been documented in the HPI. Past Medical History Past Medical History: Asthma, COPD, Hyperlipidemia, Hypertension, Seizure Disorder, Sleep Apnea/CPAP/BIPAP Additional Past Medical History / Comment(s): NO CPAP USED. MIGRAINE headaches. LAST SEIZURE 02/21/2025. HX ALCOHOL SYNDROME History of Any Multi-Drug Resistant Organisms: None Reported Past Surgical History: Orthopedic Surgery Additional Past Surgical History / Comment(s): GANGLION CYST REMOVED FROM LT WRIST. vagus nerve stimulator. BILAT KNEE SCOPES Past Anesthesia/Blood Transfusion Reactions: No Reported Reaction Past Psychological History: Bipolar, Schizophrenia Smoking Status: Never smoker Past Alcohol Use History: None Reported Past Drug Use History: None Reported - Past Family History Mother Family Medical History: No Reported History <Birgit Torres - Last Filed: 02/22/25 23:14> General Exam Limitations: no limitations General appearance: alert, in no apparent distress Head exam: Present: atraumatic, normocephalic, normal inspection Eye exam: Present: normal appearance, EOMI Neck exam: Present: normal inspection. Absent: meningismus Respiratory exam: Present: normal lung sounds bilaterally. Absent: respiratory distress, wheezes, rales, rhonchi, stridor Cardiovascular Exam: Present: regular rate, normal rhythm, normal heart sounds. Absent: systolic murmur, diastolic murmur, rubs, gallop, clicks Neurological exam: Present: alert, oriented X3 Skin exam: Present: warm, dry, intact, normal color <Birgit Torres - Last Filed: 02/22/25 23:14> Course <Audrey Ricardo - Last Filed: 02/23/25 03:13> Vital Signs 02/21/25 02/21/25 02/22/25 21:40 23:54 02:58 Temperature 98.9 F 97.8 F Pulse Rate 91 66 83 Respiratory 20 19 17 Rate Blood Pressure 130/117 107/64 124/81 O2 Sat by Pulse 100 97 97 Oximetry - Reevaluation(s) Reevaluation #1: 02/22/25 00:00 Patient signed out to me from Birgit Torres PA-C pending laboratory results and disposition (Audrey Ricardo) Medical Decision Making - Lab Data Result diagrams: 02/21/25 22:40 02/22/25 01:04 <Birgit Torres - Last Filed: 02/22/25 23:14> - Lab Data Result diagrams: 02/21/25 22:40 02/22/25 01:04 <Audrey Ricardo - Last Filed: 02/23/25 03:13> - Medical Decision Making Was pt. sent in by a medical professional or institution ([facility] [place], BUS AIDE, urgent care, hospital, or longterm...) When possible be specific @ -[No] Did you speak to anyone other than the patient for history (EMS, parent, family, police, friend...)? What history was obtained from this source @ - Did you review nursing and triage notes (agree or disagree)? Why? @ -[I reviewed and agree with nursing and triage notes] Were old charts reviewed (outside hosp., previous admission, EMS record, old EKG, old radiological studies, urgent care reports/EKG's, longterm records)? Report findings @ -[No old charts were reviewed] Differential Diagnosis (chest pain, altered mental status, abdominal pain women, abdominal pain men, vaginal bleeding, weakness, fever, dyspnea, syncope, headache, dizziness, GI bleed, back pain, seizure, CVA, palpatations, mental health, musculoskeletal)? @ -MDM Differential Seizure: Recurrent seizure disorder, febrile seizure, alcohol withdrawal, stimulants, meningitis, encephalitis, intercranial hemorrhage, intracranial tumor, stroke, eclampsia, thyrotoxicosis, hypocalcemia, hyponatremia, hypernatremia, hypomagnesemia, psychogenic… this is not meant to be an all-inclusive list EKG interpreted by me (3pts min.). @ -EKG shows sinus rhythm ventricular rate 72. NE interval 161 QRS 89 QT 391 QTc 416 X-rays interpreted by me (1pt min.). @ -[None done] CT interpreted by me (1pt min.). @ -[None done] U/S interpreted by me (1pt. min.). @ -[None done] What testing was considered but not performed or refused? (CT, X-rays, U/S, labs)? Why? @ -[None] What meds were considered but not given or refused? Why? @ -[None] Did you discuss the management of the patient with other professionals (professionals i.e. , PA, BUS AIDE, lab, RT, psych nurse, elementary school social worker, paralegal instructor, teacher, security flex officer, shoe caser)? Give summary @ -[No] Was smoking cessation discussed for >3mins.? @ -[No] Was critical care preformed (if so, how long)? @ -[No] Were there social determinants of health that impacted care today? How? (Homelessness, low income, unemployed, alcoholism, drug addiction, transportation, low edu. Level, literacy, decrease access to med. care, residential, rehab)? @ -[No] Was there de-escalation of care discussed even if they declined (Discuss DNR or withdrawal of care, Hospice)? DNR status @ -[No] What co-morbidities impacted this encounter? (DM, HTN, Smoking, COPD, CAD, Cancer, CVA, ARF, Chemo, Hep., AIDS, mental health diagnosis, sleep apnea, morbid obesity)? @ -[None] Was patient admitted / discharged? Hospital course, mention meds given and route, prescriptions, significant lab abnormalities, going to OR and other pertinent info. @ -35-year-old female with history of seizure disorder presenting for eval uation after having several seizures today. The patient is awake and alert, she is a bit tired. Is able to answer my yes and no questions. EKG shows sinus rhythm with no evidence of acute ischemia. Patient signed out to my colleague Audrey Ricardo PA-C for further mgmt and disposition. Undiagnosed new problem with uncertain prognosis? @ -[No] Drug Therapy requiring intensive monitoring for toxicity (Heparin, Nitro, Insulin, Cardizem)? @ -[No] Were any procedures done? @ -[No] Diagnosis/symptom? @ -[default] Acute, or Chronic, or Acute on Chronic? @ -[default] Uncomplicated (without systemic symptoms) or Complicated (systemic symptoms)? @ -[default] Side effects of treatment? @ -[No] Exacerbation, Progression, or Severe Exacerbation? @ -[No] Poses a threat to life or bodily function? How? (Chest pain, USA, ME, pneumonia, PE, COPD, DKA, ARF, appy, cholecystitis, CVA, Diverticulitis, Homicidal, Suicidal, threat to staff... and all critical care pts) @ -[No] (Birgit Torres) Was patient admitted / discharged? Hospital course, mention meds given and ro wrangell, prescriptions, significant lab abnormalities, going to OR and other pertinent info. @ -[Discharge. 35-year-old female presented to the ER for evaluation of a seizure. Patient with extensive history of. Patient signed out to me from Birgit Torres PA-C pending laboratory studies and dispositon. Laboratory studies obtained remarkable for WC 6.3, hemoglobin 11.7. CMP unimpressive. Lactic 1.0. Patient provided with IV fluids, Toradol and Keppra in the emergency department. Patient reevaluated patient is ANO x 3 answering questions appropriately. Baseline per family. Patient will be discharged in stable condition advised follow-up with PCP and neurology. Patient ambulated in the ER without difficulty. Return parameters discussed. Patient's family verbally expressed understanding agreed with care plan. Case discussed with ED attending of Dr. Mcintosh. Undiagnosed new problem with uncertain prognosis? @ -No Drug Therapy requiring intensive monitoring for toxicity (Heparin, Nitro, Insulin, Cardizem)? @ -No Were any procedures done? @ -No Diagnosis/symptom? @ -Seizure Acute, or Chronic, or Acute on Chronic? @ -Acute Uncomplicated (without systemic symptoms) or Complicated (systemic symptoms)? @ -Uncomplicated Side effects of treatment? @ -No Exacerbation, Progression, or Severe Exacerbation? @ -No Poses a threat to life or bodily function? How? (Chest pain, USA, ME, pneumonia, PE, COPD, DKA, ARF, appy, cholecystitis, CVA, Diverticulitis, Homicidal, Suicidal, threat to staff... and all critical care pts) @ -Seizure, possible threat to neurological function (Audrey Ricardo) - Lab Data Lab Results 07/02/22/25 02/22/25 Range/Units 22:40 01:04 01:04 WBC 6.31 (4.50-10.00) 10*3/uL RBC 3.90 L (4.10-5.20) 10*6/uL Hgb 11.7 L (12.0-15.0) g/dL Hct 34.5 L (37.2-46.3) % MCV 88.5 (80.0-97.0) fL MCH 30.0 (27.0-32.0) pg MCHC 33.9 (32.0-37.0) g/dL Plt Count 258 (140-440) 10*3/uL MPV 11.7 (9.5-12.2) fL Immature Gran % (Auto) 0.2 % Neutrophils % 63.8 % Lymphocytes % 23.1 % Monocytes % 11.3 % Eosinophils % 1.0 % Basophils % 0.6 % Immature Gran # 0.01 (0.00-0.04) 10*3/uL Neutrophils # 4.03 (1.80-7.70) 10*3/uL Lymphocytes # 1.46 (0.90-5.00) 10*3/uL Monocytes # 0.71 (0.20-1.00) 10*3/uL Eosinophils # 0.06 (0.04-0.35) 10*3/uL Basophils # 0.04 (0.00-0.10) 10*3/uL Sodium 141 (137-145) mmol/L Potassium 3.8 (3.5-5.1) mmol/L Chloride 111 H (98-107) mmol/L Carbon Dioxide 21 L (22-30) mmol/L Anion Gap 9 mmol/L BUN 12 (7-17) mg/dL Creatinine 0.65 (0.52-1.04) mg/dL Est GFR (CKD-EPI)AfAm >90 (>60 ml/min/1.73 sqM) Est GFR (CKD-EPI)NonAf >90 (>60 ml/min/1.73 sqM) Glucose 82 (74-99) mg/dL Plasma Lactic Acid Parveen 1.0 (0.7-2.0) mmol/L Calcium 8.9 (8.4-10.2) mg/dL Magnesium 1.9 (1.6-2.3) mg/dL Total Bilirubin 0.5 (0.2-1.3) mg/dL AST 42 H (14-36) U/L ALT 77 H (4-34) U/L Alkaline Phosphatase 70 (38-126) U/L Total Protein 5.9 L (6.3-8.2) g/dL Albumin 3.4 L (3.5-5.0) g/dL Disposition <Birgit Torres - Last Filed: 02/22/25 23:14> Is patient prescribed a controlled substance at d/c from ED?: No Time of Disposition: 02:41 <Audrey Ricardo - Last Filed: 02/23/25 03:13> Clinical Impression: Seizure Disposition: HOME SELF-CARE Condition: Stable Additional Instructions: Follow-up with PCP and neurology. Take Keppra as prescribed. Return to the ER for any new or worsening concerns. Referrals: Alicia Mayer DO [Primary Care Provider] - 1-2 days
[2025-02-21] MEDS: SODIUM CHLORIDE 0.9% 1,000 ML IV STA (23:52)
[2025-02-22] MEDS: KETOROLAC 15 MG/ML 1 ML VIAL IVP STA (01:20)
[2025-02-22] MEDS: levETIRAcetam IV 500 MG/5 ML VIAL IVP STA (01:21)
[2025-02-22 01:57] LABS: ALT 77 U/L (4-34); AST 42 U/L (14-36); African American GFR (CKD) >90 (>60 ml/min/1.73 sqM); Albumin 3.4 g/dL (3.5-5.0); Alkaline Phosphatase 70 U/L (38-126); Anion Gap 9 mmol/L; Blood Urea Nitrogen 12 mg/dL (7-17); Calcium 8.9 mg/dL (8.4-10.2); Carbon Dioxide 21 mmol/L (22-30); Chloride 111 mmol/L (98-107); Glucose 82 mg/dL (74-99); Magnesium 1.9 mg/dL (1.6-2.3); Non-African American GFR(CKD) >90 (>60 ml/min/1.73 sqM); Potassium 3.8 mmol/L (3.5-5.1); Sodium 141 mmol/L (137-145); Total Protein 5.9 g/dL (6.3-8.2)
[2025-02-22 02:59] VITALS: BP 124/81; PULSE 83; RESP 17; TEMP 97.8
== END 2025-02-22 03:13 | disposition home or self-care (01) ==
LOC: EC 21:38
DX: G40.909 Epilepsy, unspecified, not intractable, without status epilepticus (principal); Z88.0 Allergy status to penicillin; Z88.1 Allergy status to other antibiotic agents; Z91.040 Latex allergy status; Z88.8 Allergy status to other drugs, medicaments and biological substances
CPT/HCPCS: 36415; 80053; 80177; 83605; 83735; 85025; 93005; 96361; 96374; 96375; 99285